=== PATIENT | male | born 1985 | race Caucasian/White ===

== ENCOUNTER → 2018-03-07 13:59 | Outpatient (CLI) | payer BC, SELFPAY ==
[2018-03-07 16:02] LABS: Absolute Lymphocyte Count 2.46 X10^3/ul (0.83-4.51); Absolute Neutrophil Count 7.9 X10^3/uL (2.0-7.7); Basophil# 0.06 X10^3/uL; Basophil% 0.5 % (0-1); Eosinophil# 0.38 X10^3/uL; Eosinophils% 3.3 % (0-5); Hematocrit 35.9 % (40-54); Hemoglobin 12.6 g/dl (13.0-16.5); Lymphocyte # 2.46 X10^3/ul (4.0); Lymphocyte % 21.3 % (19-41); Mean Corp Hgb Conc 35.1 g/gl (32-36); Mean Corpuscular Hgb 30.1 pg (27.0-32.0); Mean Corpuscular Volume 85.9 fL (80-94); Mean Platelet Vol. 12.7 fl (6.2-12.0); Monocyte# 0.74 X10^3/uL; Monocyte% 6.4 % (0-10); Neutrophil # 7.88 X10^3/uL (2.7-7.7); Neutrophil % 68.3 % (47-70); Platelet Count 161 K/mm3 (150-450); RBC Distribution Width CV 13.6 % (11.6-14.6); RBC Distribution Width SD 41.9 fl (35.1-43.9); Red Blood Count 4.18 M/mm3 (4.6-6.2); White Blood Count 11.5 K/mm3 (4.4-11.0)
[2018-03-07 16:03] LABS: POSITIVE COUNT NO; POSITIVE DIFFERENTIAL NO; POSITIVE MORPHOLOGY NO
[2018-03-07 16:12] LABS: Erythrocyte Sedimentation Rate 2 mm/hr (0-15)
[2018-03-07 16:39] LABS: ALB/GLOB Ratio 1.4 RATIO (0.9-2.4); AST(SGOT) 16 U/L (15-37); Alanine Aminotransfer ALT/SGPT 27 U/L (16-61); Albumin, Serum 3.9 g/dL (3.2-5.0); Alkaline Phosphatase 82 U/L (45-117); Anion Gap 11 (5-15); BUN 6 mg/dL (7-18); BUN/Creat Ratio 6.7 RATIO (10-20); CRP < 2.90 mg/L (0.0-3.0); Calcium,Total 8.6 mg/dL (8.5-10.1); Chloride 105 mmol/L (98-107); EST Glomerular Filtration Rate 105 mL/min (>60); Est Glom Filt Rate - Afr Amer 127 mL/min (>60); Globulin 2.7 g/dL (2.2-4.2); Glucose 85 mg/dL (74-106); Potassium 3.9 mmol/L (3.5-5.1); Protein, Total 6.6 g/dL (6.4-8.2); Rheumatoid Factor < 10.0 IU/mL (<15); Sodium Level 143 mmol/L (136-145)
[2018-03-10 09:44] LABS: ANTINUCLEAR ANTIBODIES DIRECT Negative (Negative)
[2018-03-11 12:07] LABS: Immunoglobulin A 71 mg/dL (90-386); Immunoglobulin E 8 IU/mL (0-100); Immunoglobulin G 555 mg/dL (700-1600); Immunoglobulin M 34 mg/dL (20-172); Testosterone, % Free 2.11 % (1.50-4.20)
[2018-03-11 14:09] LABS: CCP IgG Antibodies 6 units (0-19); Testosterone, Total 237 ng/dL (264-916)
--- OUTSIDE RECORDS SUMMARY | 2018-04-19 11:16 | XMS RPT_ITS ---
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 / Community E29.1(ICD-10) Hospital Repository PROCEDURES PROCEDURES No Procedure Records FoundRESULTS RESULTS CBC W/DIFF, AUTOMATED Collected: 03/07/2018 Status: F Source: [place] 2:01 PM [facility] REPOSITORY TYPE CODE TESTS RESULT OUT OF RANGE REFERENCE UNITS LAB L100.1000 4.4-11.0 K/mm3 High WBC 11.5 LAB L100.1200 4.6-6.2 M/mm3 Low RBC 4.18 LAB L100.1300 13.0-16.5 g/dl Low HGB 12.6 LAB L100.1400 40-54 % Low HCT 35.9 LAB L100.1500 80-94 fL Normal MCV 85.9 LAB L100.1600 27.0-32.0 pg Normal MCH 30.1 LAB L100.1700 32-36 g/gl Normal MCHC 35.1 LAB L100.1810 11.6-14.6 % Normal RDW CV 13.6 LAB L100.1820 35.1-43.9 fl Normal RDW SD 41.9 LAB L100.1900 150-450 K/mm3 Normal PLT 161 LAB L100.2000 6.2-12.0 fl High MPV 12.7 LAB L100.2100 47-70 % Normal NEUT% 68.3 LAB L100.2200 19-41 % Normal LY% 21.3 LAB L100.2300 0-10 % Normal MONO% 6.4 LAB L100.2400 0-5 % Normal EO% 3.3 LAB L100.2500 0-1 % Normal BASO% 0.5 LAB L100.2550 0.0-0.9 % Normal IM GRAN % 0.200 Result Comment: IG% - Immature Granulocytes (promyelocytes, myelocytes and metamyelocytes) > 1% indicates that a LEFT SHIFT is Present. LAB L100.2620 2.0-7.7 X10 3/uL High Absolute Neut 7.9 LAB L100.2720 0.83-4.51 X10 3/ul Normal Absolute Lymph 2.46 Performed By: #### L100.0100, L101.9900 #### [facility] [address] [place], [place], [id number] ERYTHROCYTE SED RATE Collected: 03/07/2018 Status: F Source: [place] 2:01 PM [facility] REPOSITORY TYPE CODE TESTS RESULT OUT OF RANGE REFERENCE UNITS LAB L102.0000 0-15 mm/hr Normal SED RATE 2 Performed By: #### L100.0100, L101.9900 #### [facility] [address] [place], [place], [address] COMPREHENSIVE METABOLIC Collected: 03/07/2018 Status: F Source: [facility] 2:01 PM [facility] REPOSITORY TYPE CODE TESTS RESULT OUT OF RANGE REFERENCE UNITS LAB L501.0100 74-106 mg/dL Normal GLU 85 Result Comment: Please note revised GLUCOSE reference range effective 2017. LAB L501.1000 7-18 mg/dL Low BUN 6 LAB L501.1100 0.70-1.30 mg/dL Normal CREAT,SERUM 0.90 Result Comment: The validity of the calculated GFR AND GFRAA in patients over 70 years has not been determined. Clinical correlation is essential. LAB L501.1110 >60 mL/min Normal EST GFR 105 Result Comment: Non- GFR Calc LAB L501.1115 >60 mL/min Normal EST GFR - AA 127 Result Comment: GFR Calc LAB L501.1300 10-20 RATIO Low BUN/CRE 6.7 LAB L501.1500 6.4-8.2 g/dL Normal T PROT 6.6 LAB L501.1800 3.2-5.0 g/dL Normal ALB 3.9 LAB L501.1950 2.2-4.2 g/dL Normal GLOB 2.7 LAB L501.2000 0.9-2.4 RATIO Normal A/G 1.4 LAB L501.2200 8.5-10.1 mg/dL Normal CA 8.6 LAB L501.4100 15-37 U/L Normal AST 16 LAB L501.4305 45-117 U/L Normal ALK P 82 LAB L501.4405 16-61 U/L Normal ALT 27 LAB L501.4600 0.20-1.00 mg/dL Normal T BILI 0.20 LAB L501.5300 136-145 mmol/L Normal NA 143 LAB L501.5600 3.5-5.1 mmol/L Normal K 3.9 LAB L501.5900 98-107 mmol/L Normal CL 105 LAB L501.6100 21.0-32.0 mmol/L Normal CO2 27.0 LAB L501.6200 5-15 Normal GAP 11 Performed By: #### L500.4050, L501.6710, L501.9520, L505.7010 #### [facility] [address] [place], [address] CRP Collected: 03/07/2018 Status: F Source: [place] 2:01 PM [facility] REPOSITORY TYPE CODE TESTS RESULT OUT OF RANGE REFERENCE UNITS LAB L501.6710 0.0-3.0 mg/L Normal < 2.90 C-REACTIVE PROT Result Comment: C-Reactive Protein (CRP) provides useful information for the diagnosis, therapy and monitoring of inflammatory processes and associated diseases. For the evaluation of Relative Risk for Cardiovascular Disease, a High Sensitivity CRP (HSCRP) should be ordered. Performed By: #### L500.4050, L501.6710, L501.9520, L505.7010 #### [facility] [address] [place], [place], [address] THYROID STIM HORMONE Collected: 03/07/2018 Status: F Source: [place] (TSH) 2:01 PM [facility] REPOSITORY TYPE CODE TESTS RESULT OUT OF RANGE REFERENCE UNITS LAB L501.9520 0.358-3.74 uIU/mL Normal TSH 2.90 Performed By: #### L500.4050, L501.6710, L501.9520, L505.7010 #### [facility] [address] [place], [place], [address] RHEUMATOID FACTOR Collected: 03/07/2018 Status: F Source: [place] 2:01 PM [facility] REPOSITORY TYPE CODE TESTS RESULT OUT OF RANGE REFERENCE UNITS LAB L505.7010 <15 IU/mL Normal RHEUMATOID FAC < 10.0 Performed By: #### L500.4050, L501.6710, L501.9520, L505.7010 #### [facility] [address] [place], [place], [address] LYDIA W/ REFLEX MULT Collected: 03/07/2018 Status: F Source: [place] 2:01 PM [facility] REPOSITORY TYPE CODE TESTS RESULT OUT OF RANGE REFERENCE UNITS LAB L3100.5475 Negative Normal Negative LYDIA-DIRECT Result Comment: Performed at: - [facility] [id number] Tower Hoist Operator: Enoc Castrejon PhD, Phone: [phone] Performed By: #### L3100.5450 #### [facility] (refer to report for specific site) refer to report for address and phone number TESTOSTERONE, TOTAL / Collected: 03/07/2018 Status: F Source: [place] FREE 2:01 PM [facility] REPOSITORY Order Comment: Is Patient Fasting? Y Has Patient had X-rays with Contrast this admission? N TYPE CODE TESTS RESULT OUT OF RANGE REFERENCE UNITS LAB L3100.5320 264-916 ng/dL Low 237 TESTOSTER,TO GUILLERMINA Result Comment: Adult male reference interval is based on a population of healthy nonobese males (BMI <30) between 19 and 39 years old. kenneth Victor.al. JCEM 2017,102;0084-9284. PMID: [id number]. LAB L3100.5340 5.00-21.00 ng/dL TESTOSTER,FREE Normal 5.00 LAB L3100.5360 1.50-4.20 % TESTOSTER %FREE Normal 2.11 Performed By: #### L3100.5310, L3200.1100, L4600.0100 #### [facility] (refer to report for specific site) refer to report for address and phone number IMMUNOGLOBULINS G/A/M/E Collected: 03/07/2018 Status: F Source: [place] 2:01 PM [facility] REPOSITORY Order Comment: Is Patient Fasting? Y Has Patient had X-rays with Contrast this admission? N TYPE CODE TESTS RESULT OUT OF RANGE REFERENCE UNITS LAB L3200.3184 626-6734 mg/dL Low IMMUNO G 555 LAB L3200.1400 90-386 mg/dL Low IMMUNO A 71 LAB L3200.1500 20-172 mg/dL Normal IMMUNOGL M 34 LAB L3200.1600 0-100 IU/mL Normal IMMUNO E 8 Performed By: #### L3100.5310, L3200.1100, L4600.0100 #### [facility] (refer to report for specific site) refer to report for address and phone number CCP IGG ANTIBODIES Collected: 03/07/2018 Status: F Source: [place] 2:01 PM [facility] REPOSITORY Order Comment: Is Patient Fasting? Y Has Patient had X-rays with Contrast this admission? N TYPE CODE TESTS RESULT OUT OF RANGE REFERENCE UNITS LAB L4600.0100 0-19 units Normal ANTI-CCP 6 [id number] Result Comment: Negative <20 Weak positive 20 - 39 Moderate positive 40 - 59 Strong positive >59 Performed at: - [facility] [address] [place], [place] [id number] Tower Hoist Operator: Enoc Castrejon PhD, Phone: [phone] Performed at: [facility] [id number] Tower Hoist Operator: Grayson Biswas MD, Phone: [phone] Performed By: #### L3100.5310, L3200.1100, L4600.0100 #### [facility] (refer to report for specific site) refer to report for address and phone number ALLERGIES ALLERGIES DATE TYPE / CODE NAME / CODE REACTION SEVERITY SOURCE 11/21/2016 Drug Penicillins/ Rash Unknown [facility] Allergy/4160 [id number]( Hospital 65516(SNOMED XNORM) Repository CT) ENCOUNTERS ENCOUNTERS ADMIT/DISCHARGE ACCOUNT ADMITTING ENCOUNTER LOCATION SOURCE NUMBER CLASS 03/22/2018 [id number] [place] [facility] ing:LAB.FUTUR Repository E 03/07/2018 [id number] Ambulatory [place] [facility] ing:BFHLAB Repository PAYERS PAYERS ENCOUNTER GUARANTOR PAYER SUBSCRIBER SOURCE 03/22/2018 Natasha [id number] Primary Natasha KoOB: [place] Melody Insurance:[facility] [id number] Number: [facility] [id number]: [id number] Repository [phone] () dorene Date:0046-34-33ZO [address] [place] [id number]: 03/22/2018 Secondary NOT GIVENUNK [place] Insurance:SELF PAY [facility] Number: Effective Repository Date:2018-03-22 03/07/2018 Natasha [id number] Primary Natasha KoOB: [place] Melody Insurance:[facility] [id number] Number: [facility] [id number]: [id number] Repository [phone] () dorene Date:[id number] [address] [place] [address] [id number]: 03/07/2018 Secondary NOT GIVENUNK [place] Insurance:SELF PAY [facility] Number: Effective Repository Date:2018-03-07
== END ==
LOC: BFHLAB 13:59
PROVIDERS: Family Provider Family Medicine; PCP Family Medicine; Visit Provider Family Medicine
DX: M06.9 Rheumatoid arthritis, unspecified (principal); N52.9 Male erectile dysfunction, unspecified; H04.129 Dry eye syndrome of unspecified lacrimal gland; I10 Essential (primary) hypertension; R53.83 Other fatigue; R68.89 Other general symptoms and signs
CPT/HCPCS: 36415; 80053; 82784; 82785; 84402; 84403; 84443; 85025; 85652; 86038; 86140; 86200; 86225; 86235; 86431

== ENCOUNTER → 2018-05-05 12:52 | Outpatient (CLI) | payer BC, SELFPAY ==
[2016-11-22 02:46] VITALS: BMI 23.0
[2018-05-05 14:02] LABS: Prolactin 10.2 ng/mL; Thyroid Stim Hormone (TSH) 3.01 uIU/mL (0.358-3.74)
== END ==
LOC: LAB 12:55
PROVIDERS: Family Provider Family Medicine; PCP Family Medicine; Referring Provider Family Medicine; Visit Provider Family Medicine
DX: E29.1 Testicular hypofunction (principal)
CPT/HCPCS: 36415; 84146; 84402; 84403; 84443; 84466

== ENCOUNTER → 2018-08-26 09:47 | Outpatient (CLI) | payer BC, SELFPAY ==
[2018-08-26 12:34] LABS: Erythrocyte Sedimentation Rate 4 mm/hr (0-15)
[2018-08-26 12:38] LABS: Absolute Lymphocyte Count 1.17 X10^3/ul (0.83-4.51); Absolute Neutrophil Count 7.1 X10^3/uL (2.0-7.7); Basophil# 0.02 X10^3/uL; Basophil% 0.2 % (0-1); Eosinophil# 0.03 X10^3/uL; Eosinophils% 0.3 % (0-5); Hematocrit 40.9 % (40-54); Hemoglobin 14.2 g/dl (13.0-16.5); Lymphocyte # 1.17 X10^3/ul (4.0); Lymphocyte % 13.5 % (19-41); Mean Corp Hgb Conc 34.7 g/gl (32-36); Mean Corpuscular Hgb 29.4 pg (27.0-32.0); Mean Corpuscular Volume 84.7 fL (80-94); Mean Platelet Vol. 12.5 fl (6.2-12.0); Monocyte# 0.35 X10^3/uL; Neutrophil # 7.08 X10^3/uL (2.7-7.7); Neutrophil % 81.5 % (47-70); Platelet Count 171 K/mm3 (150-450); RBC Distribution Width CV 14.1 % (11.6-14.6); RBC Distribution Width SD 43.4 fl (35.1-43.9); Red Blood Count 4.83 M/mm3 (4.6-6.2); White Blood Count 8.7 K/mm3 (4.4-11.0)
[2018-08-26 12:40] LABS: POSITIVE COUNT NO; POSITIVE DIFFERENTIAL NO; POSITIVE MORPHOLOGY NO
[2018-08-26 12:57] LABS: CRP < 2.90 mg/L (0.0-3.0); Ferritin 70 ng/mL (26-388); T4 Free Direct 0.66 ng/dL (0.76-1.46); Thyroid Stim Hormone (TSH) 1.23 uIU/mL (0.358-3.74)
[2018-08-31 12:07] LABS: Testosterone, % Free 2.01 % (1.50-4.20); Testosterone, Free 11.58 ng/dL (5.00-21.00); Transferrin 310 mg/dL (200-370)
[2018-09-01 16:14] LABS: HEPATITIS B SURFACE AG Negative (Negative); HLA B27 Negative (.); Testosterone, Total 576 ng/dL (264-916)
== END ==
PROVIDERS: Family Provider Family Medicine; PCP Family Medicine; Visit Provider Family Medicine
DX: M06.9 Rheumatoid arthritis, unspecified (principal); M25.50 Pain in unspecified joint; E29.1 Testicular hypofunction; D84.9 Immunodeficiency, unspecified; R53.83 Other fatigue
CPT/HCPCS: 36415; 81374; 82533; 82728; 84402; 84403; 84439; 84443; 84466; 85025; 85652; 86140; 87340

== ENCOUNTER → 2018-10-10 15:10 | Outpatient (CLI) | payer BC, SELFPAY ==
[2016-11-22 02:46] VITALS: BMI 23.0
[2018-10-13 03:06] LABS: QNTFERON TB Mitogen Value > 10.00 IU/mL (.); QNTFERON TB Nil Value 0.02 IU/mL (.); QNTFERON TB1+ Ag Value 0.04 IU/mL (.); QNTFERON TB2+ Ag Value 0.05 IU/mL (.)
[2018-10-14 16:53] LABS: QNTIFERON TB Positive Criteria Negative (Negative)
== END ==
PROVIDERS: Family Provider Family Medicine; PCP Family Medicine; Referring Provider Family Medicine; Visit Provider Family Medicine
DX: Z51.81 Encounter for therapeutic drug level monitoring (principal)
CPT/HCPCS: 36415; 86480

== ENCOUNTER 2018-10-24 01:52 | Emergency (ER) | payer BC, SELFPAY ==
[2018-10-24 01:53] VITALS: BP 142/81; PULSE 109; RESP 16; TEMP 36.6; O2SAT 99; BMI 24.4
--- NOTE | 2018-10-24 02:10 | ED.VISSUMM ---
- ER Visit Summary Date of Service: 10/24/18 Chief Complaint: Back pain History of Present Illness: The patient is a 33 M who presents with back pain is been constant for the past 3 weeks. Patient states he has a history of prior back fracture and is concerned over possible new fracture. Patient states he had a seizure approximately 3 weeks ago and fell during the seizure. Patient states his pain is been constant since that time. Patient describes the pain as sharp and dull. Patient states pain is worse with movement. Patient denies any radiation of the pain. Patient denies any bowel or bladder changes. Patient denies any saddle anesthesia. Physical Examination: Vital signs are stable. Patient is afebrile. Patient is in no acute distress. Musculoskeletal exam reveals tenderness of the left upper lumbar paraspinal muscles. There is no bony crepitance or step-off. Range of motion was limited in all motions of the lumbar spine secondary to pain. Strength is 5/5 bilaterally in the lower extremities. There are no sensory deficits noted. Test Results: X-rays of the lumbar spine were obtained. There are mild compression fractures of T12, L1, and L2. Patient states he has had fractures in his spine in the past. There are no prior x-rays for comparison. These were interpreted by the radiologist and reviewed by myself. Emergency Department Course and Treatment: Patient was resting comfortably on reevaluation. Patient was advised of his x-ray results. Patient states that with his prior back fracture it was diagnosed on MRI. Patient was advised that an MRI is not available at this time. Patient was instructed to follow-up with his primary care physician in 5 to 7 days for reevaluation. Patient understood and was agreeable with the plan. All questions were answered. Disposition: Discharge home Impression: Acute low back pain This note was generated with [employer] dictation software. It may contain incorrect words, spelling, and punctuation that were not noted in review of the chart prior to signing ED Disposition - Plan for ED Patient: Disposition: Home or Assisted Living Diagnosis: Acute low back pain Instructions: BACK PAIN (Acute or Chronic) Referrals: Gil Hu [Primary Care Provider] - 5-7 Days
--- NOTE | 2018-10-24 02:16 | RAD_ITS ---
STUDY: X-RAY - LUMBAR SPINE REASON FOR EXAM: Male, 33 years old. Lower back pain TECHNIQUE: 3 view(s) of the lumbar spine were obtained. COMPARISON: None FINDINGS: Normal lumbar lordosis. There is no substantial scoliosis. There is a normal alignment of the vertebrae. Mild compression fractures are noted in the upper endplate of T10, L1, L2. Normal disc space heights. The soft tissue structures are unremarkable. RAD/Lumbar Spine 2 or 3 Views IMPRESSION: Mild compression fractures of T10, L1, L2 Electronically Signed: Artur Childress, at 3:42 EDT Tel , Service support ,
[2018-10-24 03:52] VITALS: RESP 18
== END 2018-10-24 03:53 | disposition home or self-care (01) ==
PROVIDERS: Emergency Provider Emergency Medicine; Family Provider Family Medicine; PCP Family Medicine
DX: M54.5 Low back pain (principal); Z87.898 Personal history of other specified conditions; J34.89 Other specified disorders of nose and nasal sinuses; R06.00 Dyspnea, unspecified; R51 Headache; I10 Essential (primary) hypertension; M06.9 Rheumatoid arthritis, unspecified; G40.909 Epilepsy, unspecified, not intractable, without status epilepticus; Z79.899 Other long term (current) drug therapy
CPT/HCPCS: 72100; 99282

== ENCOUNTER 2018-12-29 09:30 | Outpatient (RCR) | payer BC, SELFPAY ==
--- NOTE | 2018-11-17 17:49 | HP.PTEVAL ---
Patient's Visit Information RAH BROWNING is a 33 year old M referred to Physical Therapy by Gil Hu DO with a diagnosis of LBP. Date of Evaluation: 11/17/18 Physical Therapist: Frankie Albarran, DPT, OCS, CSCS - Visit Plan Frequency: 2x /Week Duration: 4-6 Weeks Plan: Pt to do prone lie 5 minutes every hour at home and focus on posture. He has obvious clonus combined with night pain whcih are yellow flags whcih should be checked out if quick improvements not shown. see in water therapy 2x/week for 2-4 weeks as able to work on ext ROM L/S, posture, core strength and LE/postural strength. Gradual progression of ext exercises via HEP to tolerance. - Subjective Findings: Has RA. Problems with adrenal glands and seizures. October 05 seizure and fell through closet door bent BW and seized long time. Seizures are from stress adn lack of sleep. Sleeps less than 2 hours at a time before joint pain wakes him up. Had a seizure as a kid. On [employer] meds . Had LBP before this latest incident but unbearable since. 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 Pain is in LB deep and no leg symptoms. No numbness or tingling. Needs MRI and needs to do this to get it. Can't ride bike due to back pain and joint pain. Diagnosed with RA 5 yrs ago. Fritz takes care of it. Basic ADLs are done lightly. bathes and showers on own. Laundry hard to loft. Sleep is poor. No incontinence or difficulty with bowel or bladder. - Pain LBP Pain Intensity (Out of 10): 7 Pain Intensity Range: 10 - Objective Walks flexed in LB and hunched over significantly , hurt to extend to neutral in R LB. L/S AROM Barely neutral extension and pain, flexion is painful but full, SB B painful and mod limited. Trasnfers painfully but I to and fro sit and supine. reflexes are 3/3 B achilles and patella with obvious B CLONUS. Sensation WNL to gross light touch in LE. AROM LE WNL without pain, flex HS and quad mod tight. strength LE 4/5 without pain except R hip flexion gives some minor LBP. + L/S compression test. Too painful to do repeated motion today. - Goals Goal 1:: Sleep withotu waking at night due to pain 6 hours. Goal Time Frame: 2-4 Weeks Goal 2:: Stand up tall without hesitation or pain in LB Goal Time Frame: 2-4 Weeks Goal 3:: Transfer without pain or hesitancy Goal Time Frame: 2-4 Weeks Goal 4:: Pain 3/10 at worst adn 755 better. Goal Time Frame: 4-6 Weeks - Rehabilitation Potential Physical Therapy Diagnosis: LBP discal vs unknown etiology. Rehabilitation Potential: Questionable - Anticipated Interventions Patient/Client Instruction: Educate patient on: Condition, Plan of Care For the Purpose of:: To decrease pain, To improve muscle performance and motor function, To improve ability of physical actions for home/community/work/leisure, To improve gait and locomotor functions Therapeutic Exercise to Include: Strength training, Flexibilty training, Gait and locomotor training, In an aquatic setting, Passive ROM, Active ROM For the Purpose of:: To decrease pain, To increase ROM, To improve muscle performance and motor function, To improve ability of physical actions for home/community/work/leisure Thank you for the opportunity to evaluate your patient. For Medicare and Medicare HMO plans, please review the plan of care and approve it. It will need to be FAXED BACK to us at [phone] for Medicare purposes. For Medicare only, by signing this I certify the plan of care. Please let me know if there are questions or concerns regarding this plan of care. Physician Signature: Date:
--- NOTE | 2018-12-29 10:22 | HP.PTDCSUM ---
HP - PT D/C Summary It has been my pleasure to treat RAH BROWNING under orders from Gil Hu DO, for the diagnosis of LBP for a total of 4 visit(s). Discharge Date: 12/29/18 Please see the following information for a summary of their discharge status. - Subjective Subjective: Better. Time has allowed him to heal. 3/10 pain with bending or sideways moving. Sleeping is still tough as he cannot stay asleep. Not back to work yet. Activities at home are OK inside but mowing lawn is tough. Needs f/u with Dr. Hu. HEP crunches. - Pain LBP Pain Intensity (Out of 10): 0 - Overall Improvement % Improvement: 75 - Objective Objective/Function: Pt shows hunched posture but no blockages or deviations otherwise. He is able to stand up tall when asked adn has only min limitations in ext without pain, full flexion and mod SB limitations with B pAin. Trasnfer pain with supine to sit but better if cued to go through sidelying. [id number] BETTER AND WANTS TO BE DONE WITH PT, WILL SCHEULE WITH DOCTOR ADN WANTS TO RETURN TO WORK. - Goals Goal 1:: Sleep withotu waking at night due to pain 6 hours. Goal Progress: Not Progressing Goal 2:: Stand up tall without hesitation or pain in LB Goal Progress: Goal Met Goal 3:: Transfer without pain or hesitancy Goal Progress: Goal Met Goal 4:: Pain 3/10 at worst adn 755 better. Goal Progress: Goal Met - Plan Plan: D/C , PT REQUEST. - D/C Information Discharge Comments: pT TO SCHEDULE WITH DOCTOR INSTRUCTED. DOING WELL AND SIGNIFICANTLY BETTER. If there are questions or concerns regarding this patient's physical therapy, please feel free to call me at [phone]. Thank you for the referral of this patient. Sincerely, Frankie Albarran, DPT, OCS, CSCS
== END 2018-12-29 19:00 | disposition home or self-care (01) ==
LOC: PT 09:30
PROVIDERS: Family Provider Family Medicine; PCP Family Medicine; Referring Provider Family Medicine; Visit Provider Family Medicine
DX: M54.6 Pain in thoracic spine (principal); M54.5 Low back pain
CPT/HCPCS: 97113; 97162; 97530

== ENCOUNTER → 2019-03-20 16:11 | Outpatient (CLI) | payer BC, SELFPAY ==
[2019-03-20 17:32] LABS: Absolute Lymphocyte Count 2.15 X10^3/uL (0.83-4.51); Absolute Neutrophil Count 4.4 X10^3/uL (2.0-7.7); Basophil# 0.12 X10^3/uL; Basophil% 1.5 % (0-1); Eosinophil# 0.41 X10^3/uL; Eosinophils% 5.3 % (0-5); Hematocrit 44.3 % (40-54); Hemoglobin 14.8 g/dL (13.0-16.5); Lymphocyte # 2.15 X10^3/ul (4.0); Lymphocyte % 27.6 % (19-41); Mean Corp Hgb Conc 33.4 g/dL (32-36); Mean Corpuscular Hgb 29.2 pg (27.0-32.0); Mean Corpuscular Volume 87.4 fL (80-94); Mean Platelet Vol. 11.7 fl (6.2-12.0); Monocyte# 0.64 X10^3/uL; Monocyte% 8.2 % (0-10); NRBC Flagged by Analyzer 0 % (0-5); Neutrophil # 4.41 X10^3/uL (2.7-7.7); Neutrophil % 56.5 % (47-70); Platelet Count 219 K/mm3 (150-450); RBC Distribution Width CV 14.6 % (11.6-14.6); RBC Distribution Width SD 46.6 fl (35.1-43.9); Red Blood Count 5.07 M/mm3 (4.6-6.2); White Blood Count 7.8 K/mm3 (4.4-11.0)
[2019-03-20 18:42] LABS: ALB/GLOB Ratio 1.5 RATIO (0.9-2.4); AST(SGOT) 11 U/L (15-37); Alanine Aminotransfer ALT/SGPT 13 U/L (16-61); Alkaline Phosphatase 73 U/L (45-117); Anion Gap 4 (5-15); BUN 9 mg/dL (7-18); BUN/Creat Ratio 8.9 RATIO (10-20); Calcium,Total 8.4 mg/dL (8.5-10.1); Chloride 107 mmol/L (98-107); Creatinine, Serum 1.01 mg/dL (0.70-1.30); EST Glomerular Filtration Rate 91 mL/min (>60); Est Glom Filt Rate - Afr Amer 110 mL/min (>60); Globulin 2.7 g/dL (2.2-4.2); Glucose 82 mg/dL (74-106); Potassium 3.4 mmol/L (3.5-5.1); Protein, Total 6.7 g/dL (6.4-8.2); Sodium Level 142 mmol/L (136-145)
== END ==
PROVIDERS: Family Provider Family Medicine; PCP Family Medicine; Referring Provider Family Medicine; Visit Provider Family Medicine
DX: I10 Essential (primary) hypertension (principal); Z51.81 Encounter for therapeutic drug level monitoring
CPT/HCPCS: 36415; 80053; 85025

== ENCOUNTER → 2019-04-11 17:39 | Outpatient (CLI) | payer BC, SELFPAY ==
--- NOTE | 2019-04-11 18:15 | MRI_ITS ---
HISTORY: lower back pain, muscle cramps, burning in right leg, numbness left leg, s/p fall ADDITIONAL HISTORY: 33-year-old male with 6 month history of severe back pain, muscle spasm in his back, status post completion of consistent medication therapy, course of physical therapy with a complete resolution. Intermittent symptoms in lower extremities. COMPARISON: Lumbar radiographs 10/11/20142018 TECHNIQUE: Multiplanar, multisequence MRI of the lumbar spine without IV contrast. FINDINGS: Bone marrow signal intensity appears unremarkable. Mild superior end plate loss of height of T12 and L1 with Schmorl's nodes, similar to previous radiographs. No significant canal or foraminal narrowing. Conus ends at L1-2. L1-L2: Unremarkable. L2-L3: Unremarkable. L3-L4: No significant disc bulging. Facet arthropathy. L4-L5: No significant disc bulging. Facet arthropathy. L5-S1: Disc desiccation with mild to moderate disc bulging. Facet arthropathy. MRI/Spine Lumbar (Routine) IMPRESSION: Degenerative changes with mild to moderate disc bulging at L5-S1. at 2307 Reported and signed by: Lorraine Antonio MD Electronically Signed: Lorraine Antonio MD at 23:07 EST Tel , Service support ,
== END ==
LOC: MRI 17:39
PROVIDERS: Family Provider Family Medicine; PCP Family Medicine; Referring Provider Family Medicine; Visit Provider Family Medicine
DX: M54.16 Radiculopathy, lumbar region (principal); M54.5 Low back pain
CPT/HCPCS: 72148

== ENCOUNTER → 2019-05-19 09:39 | Outpatient (CLI) | payer BC, SELFPAY ==
--- NOTE | 2019-05-19 09:43 | NM_ITS ---
CLINICAL: 33-year-old male with reported history of low back discomfort. WHOLE BODY and SPECT-CT LOWER THORACIC-LUMBAR SPINE RADIONUCLIDE 99m Tc MDP BONE SCINTIGRAPHY COMPARISON: MRI of the lumbar spine report 04/11/2019 FINDINGS: Following the intravenous administration of approximately 25.0 mCi of 99m Tc MDP, whole body bone images and SPECT reconstructions of the mid-lower thoracic, lumbar reveal: 1. SPECT reconstructions demonstrate focal increased radiopharmaceutical concentration noted in the ninth thoracic and first lumbar vertebra contiguous to the vertebral body-anterior element. 2. Facilitated tracer uptake is noted in the bilateral elbows, the acromioclavicular and sternoclavicular compartments of both shoulders, both knee articulations. 3. The remaining skeletal structures are scintigraphically unremarkable with normal-appearing renal images and urinary bladder activity identified. NM/Bone Scan Whole Body IMPRESSION: 1. The increase in radiopharmaceutical concentration identified in the ninth thoracic and first lumbar vertebra is most consistent with trauma-fracture. Repeat MRI of the lumbar spine and additionally obtained MRI of the lower thoracic spine may be of benefit for further evaluation. 2. Degenerative arthritis appears expressed in the bilateral shoulder and elbow articulations, right-left knees. Electronically Signed: Latrell Gallardo DO at 14:02 EST Tel , Service support ,
== END ==
LOC: NM 09:40
PROVIDERS: PCP Family Medicine; Referring Provider Orthopaedic Surgery; Visit Provider Orthopaedic Surgery
DX: M43.10 Spondylolisthesis, site unspecified (principal)
CPT/HCPCS: 78306

== ENCOUNTER → 2019-06-13 09:20 | Outpatient (CLI) | payer BC, SELFPAY ==
--- NOTE | 2019-06-13 10:00 | MRI_ITS ---
STUDY: MRI THORACIC SPINE WITHOUT CONTRAST REASON FOR EXAM: Male, 33 years old. Abnormal bone scan, back pain TECHNIQUE: Standardized fat and water weighted pulse sequences were obtained in the sagittal and axial planes. COMPARISON: None. FINDINGS: Thoracic kyphosis preserved. No significant scoliosis. Multilevel endplate spondylosis with corresponding Schmorl''s nodes at the T9, T10, T11, T12 and L1 levels. Mild bone marrow edema within the L1 superior endplate adjacent to the Schmorl''s node (sagittal image 8 series 6). C6-7 disc bulge (sagittal image 8 series 4) with mild central canal narrowing. T5-6 tiny central disc protrusion. T6-7 shallow central disc protrusion with minimal central canal narrowing. T7-8 disc bulge with minimal central canal narrowing. Additional visualized thoracic levels: Minimal disc bulging. Mild disc desiccation. No central canal narrowing. No neural foramina narrowing. No acute fracture line. No acute dislocation. No acute bone destruction. No spondylolisthesis. No abnormal cord signal. Normal upper abdomen. Normal aorta. Normal mediastinum. Normal lungs. Normal paraspinal muscles. 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
--- NOTE | 2019-06-13 10:45 | MRI_ITS ---
STUDY: MRI LUMBAR SPINE WITHOUT CONTRAST REASON FOR EXAM: Male, 33 years old. back pain, f/u bone scan TECHNIQUE: Standardized fat and water weighted pulse sequences were obtained in the sagittal and axial planes. COMPARISON: April 11, 2019. FINDINGS: Lumbar straightening. No significant scoliosis. No acute fracture. No acute dislocation. No acute bone destruction. Active L1 superior endplate Schmorl''s node. T12 superior endplate Schmorl''s node. Normal paraspinal muscles. Normal aorta. Normal retroperitoneum. T12-L1: Endplate spondylosis with Schmorl''s node. Minimal disc desiccation. Normal bilateral facet joints. Normal central canal and bilateral lateral recesses. Normal bilateral intervertebral neural foramina. L1-2: Normal endplates. Normal disc height, hydration and morphology. Normal bilateral facet joints. Normal central canal and bilateral lateral recesses. Normal bilateral intervertebral neural foramina. L2-3: Normal endplates. Normal disc height, hydration and morphology. Normal bilateral facet joints. Normal central canal and bilateral lateral recesses. Normal bilateral intervertebral neural foramina. L3-4: Normal endplates. Normal disc height, hydration and morphology. Facet arthrosis. Normal central canal and bilateral lateral recesses. Normal bilateral intervertebral neural foramina. L4-5: Normal endplates. Normal disc height, hydration and morphology. Facet arthrosis. Normal central canal and bilateral lateral recesses. Normal bilateral intervertebral neural foramina. L5-S1: Minimal endplate spondylosis. Disc bulge without central canal narrowing. Facet arthrosis. Normal central canal and bilateral lateral recesses. Neural foramina narrowing without impingement. L5 bilateral pars defects without spondylolisthesis. MRI/Spine Lumbar (Routine) IMPRESSION: Scheuermann''s disease with acute/subacute L1 superior endplate edema/collapse Schmorl''s node L5-S1 disc bulge without central canal narrowing L5-S1 neural foraminal narrowing without impingement L5 bilateral pars defects without spondylolisthesis Lumbar straightening with facet joint arthrosis Electronically Signed: Frankie Pedraza DO at 11:45 EST Tel , Service support ,
== END ==
LOC: MRI 09:21
PROVIDERS: PCP Family Medicine; Referring Provider Nurse Practitioner Acute Care; Visit Provider Nurse Practitioner Acute Care
DX: R94.8 Abnormal results of function studies of other organs and systems (principal)
CPT/HCPCS: 72146; 72148

== ENCOUNTER 2020-01-11 13:12 | Inpatient (IN) | payer SELFPAY ==
[2020-01-11] VITALS (7 sets, daily range): BP systolic 144–164; BP diastolic 76–99; PULSE 90–113; RESP 17–18; TEMP 36.6–36.9; O2SAT 96–100; BMI 25.8; BMI 27.8
--- NOTE | 2020-01-11 14:53 | EKG12_ITS ---
Test Reason : STROKE Blood Pressure : / mmHG Vent. Rate : 104 BPM Atrial Rate : 104 BPM P-R Int : 206 ms QRS Dur : 114 ms QT Int : 348 ms P-R-T Axes : 033 080 013 degrees QTc Int : 457 ms Sinus tachycardia Nonspecific ST and T wave abnormality Abnormal ECG Confirmed by ELHAM JAIN, NIKIA ([id number]), proposal editor ERIK CROWDER ([id number]) on 01/15/2020 2:38:34 PM Referred By: JASON Confirmed By:COCO LIZARRAGA MD
--- NOTE | 2020-01-11 14:58 | TELEMED_ITS ---
[facility] Tele[facility] has confirmed receipt of a request for visit. This document confirms receipt of the order initiating the consult. To find the results of the consultation, please view the patient's reports for the scanned Telemed Consult.
--- NOTE | 2020-01-11 15:05 | ED.VIS.GEN ---
History of Present Illness Chief Complaint: Weakness Informant: Patient, Significant Other Onset: Today Narrative: Patient presents by EMS with significant other sudden onset bilateral arm and leg weakness after awakening at 11 AM today. States got up felt a cramp in his leg and went down. No head injuries. States had significant difficulty moving his arms bilaterally earlier and legs. States it takes a lot of effort to try to move his arms and legs. No previous similar events in the past. He does report a history of rheumatoid arthritis for the past 5 years due to losing his job and health insurance stopped Humira in June. He states history of stress-induced seizures with as needed Valium. He takes gabapentin for back pain. He states he is on oxycodone for pain by his PCP Dr. Hu. He denies any IV drug use. He states he takes occasional gummy THC. Last use was 5 days ago. He denies any paresthesias distally or anywhere in the body. No headache or neck pain. Denies trauma. He denies any loss of bowel or bladder control. No saddle anesthesia. Denies pain new pain down thoracic or lumbar region. He states he had an MRI of his lumbar spine little over a year ago as an outpatient. Patient denies any recent fevers, denies any recent illnesses. Prior similar symptoms: No Past Medical History - Allergies and Home Meds Allergies/Adverse Reactions: Allergies Penicillins Allergy (Verified 01/11/20 13:16) Rash Primary Care Physician: Gil Hu [Primary Care Provider] - Past Medical History: - - Chronic back pain, stress-induced seizures, rheumatoid arthritis Smoking Status: Current some day smoker - Family History Maternal Family History: Reports: Diabetes Paternal Family History: Reports: Cancer, Hypertension Review of Systems General: Denies: Chills, Fever, Sweats Eyes: Denies: Visual changes - bilaterally, Diplopia ENT: Denies: Rhinorrhea, Sore throat Cardiovascular: Denies: Chest pain, Palpitations Respiratory: Denies: Dyspnea, Cough, Dyspnea on exertion Gastrointestinal: Denies: Abdominal pain, Nausea, Vomiting, Diarrhea, Melena, Hematochezia Genitourinary: Denies: Dysuria, Hematuria, Frequency Musculoskeletal: Denies: Back pain, Extremity Pain Skin: Denies: Rash, Wounds Neurological: Reports: Weakness. Denies: Headache, Numbness Physical Exam Vital Signs/Narrative: Vital Signs Temp Pulse Resp BP Pulse Ox 01/11/20 13:13 97.8 F 107 H 18 154/99 H 99 Inital Vital Signs reviewed: Yes General: Well nourished, Well developed, No Acute Distress Head: Normocephalic, Atraumatic Eyes: Perrl, EOMI ENT: Moist mucous membranes, No rhinorrhea Neck: Supple, Nontender Cardiovascular: Regular rate, Regular rhythm, No murmurs Respiratory: No distress, CTA bilaterally, Chest nontender Abdomen: Soft, Nontender, Nondistended, Normal bowel sounds Back: Nontender, Normal Inspection, -. Negative for: Spinal tenderness - No erythema along the back. Extremities: Nontender, No edema Skin: Normal color, No rash Neurological: Alert, Oriented x3, Cranial nerves II-XII grossly intact, Normal Sensation, - - Patient with significant weakness proximal shoulders bilaterally hip flexors. He did have weakness of extremities elbows and distally however not as significant as the shoulders. He is unable to fully abduct his shoulders. Bilateral hip flexors also significantly weak, is able to plantar flex 4 out of 5, dorsiflexion bilaterally was 2 out of 5. Sensation however is intact throughout. Psychological: Normal affect, Normal Mood Diagnostic/Tx/Re-eval Abnormal Lab Results 01/11/20 01/11/20 01/11/20 15:18 15:18 15:18 WBC 13.4 H RBC 4.99 Hgb 15.1 Hct 44.6 MCV 89.4 MCH 30.3 MCHC 33.9 RDW Std Deviation 44.7 H RDW Coeff of Todd 13.6 Plt Count 185 MPV 11.7 Immature Gran % (Auto) 1.300 H Neut % (Auto) 71.5 H Lymph % (Auto) 12.0 L [place] % (Auto) 5.7 Eos % (Auto) 8.5 H Baso % (Auto) 1.0 Absolute Neuts (auto) 9.6 H Absolute Lymphs (auto) 1.61 Nucleated RBC % 0 ESR < 1 PT 11.2 L INR 0.9 APTT 25.6 Sodium 143 Potassium 1.9 L* Chloride 108 H Carbon Dioxide 28.0 Anion Gap 7 BUN 6 L Creatinine 0.91 Estim Creat Clear Calc 107.95 Est GFR (MDRD) Af Amer 123 Est GFR (MDRD) Non-Af 101 BUN/Creatinine Ratio 6.6 L Glucose 156 H Calcium 8.9 Magnesium 1.6 Total Bilirubin 0.20 AST 22 ALT 21 Alkaline Phosphatase 83 Total Creatine Kinase C-React Prot High Sens 1.24 Total Protein 6.5 Albumin 3.8 Globulin 2.7 Albumin/Globulin Ratio 1.4 Urine Color Urine Clarity Urine pH Ur Specific [place] Urine Protein Urine Glucose (UA) Urine Ketones Urine Occult Blood Urine Nitrite Urine Bilirubin Urine Urobilinogen Ur Leukocyte Esterase Urine RBC Urine WBC Ur Squamous Epith Cells Urine Bacteria Urine Mucus Urine Opiates Screen Urine Methadone Screen Ur Barbiturates Screen Ur Phencyclidine Scrn Ur Amphetamines Screen U Methamphetamin-MDMA U Benzodiazepines Scrn Urine Cocaine Screen U Cannabinoids Screen Ur Drug Screen Comment 01/11/20 01/11/20 01/11/20 15:18 15:27 15:27 WBC RBC Hgb Hct MCV MCH MCHC RDW Std Deviation RDW Coeff of Todd Plt Count MPV Immature Gran % (Auto) Neut % (Auto) Lymph % (Auto) [place] % (Auto) Eos % (Auto) Baso % (Auto) Absolute Neuts (auto) Absolute Lymphs (auto) Nucleated RBC % ESR PT INR APTT Sodium Potassium Chloride Carbon Dioxide Anion Gap BUN Creatinine Estim Creat Clear Calc Est GFR (MDRD) Af Amer Est GFR (MDRD) Non-Af BUN/Creatinine Ratio Glucose Calcium Magnesium Total Bilirubin AST ALT Alkaline Phosphatase Total Creatine Kinase 597 H C-React Prot High Sens Total Protein Albumin Globulin Albumin/Globulin Ratio Urine Color Yellow Urine Clarity Clear Urine pH 6.5 Ur Specific [place] 1.005 Urine Protein Negative Urine Glucose (UA) Normal Urine Ketones Negative Urine Occult Blood Negative Urine Nitrite Negative Urine Bilirubin Negative Urine Urobilinogen Normal Ur Leukocyte Esterase Negative Urine RBC 0 SEEN Urine WBC 0 SEEN Ur Squamous Epith Cells 0 SEEN Urine Bacteria 0 SEEN Urine Mucus 0 SEEN Urine Opiates Screen NEGATIVE Urine Methadone Screen NEGATIVE Ur Barbiturates Screen NEGATIVE Ur Phencyclidine Scrn NEGATIVE Ur Amphetamines Screen NEGATIVE U Methamphetamin-MDMA NEGATIVE U Benzodiazepines Scrn POSITIVE H Urine Cocaine Screen NEGATIVE U Cannabinoids Screen POSITIVE H Ur Drug Screen Comment - Medical Decision Making Patient with significant motor weakness of bilateral arms and legs prominently proximal aspects of the extremities. Sensation is intact, he has no paresthesias, no neck pain or headaches. Unclear in etiology, less likely Guillain Castellanos? concerns. He has no respiratory complaints. Due to sudden onset of motor weakness, MRI studies ordered of the brain neck thoracic and lumbar regions with contrast for further evaluation. We will have laboratory studies to evaluate for any metabolic disorders. We will request neurologically consult from the ED through [facility]. Neurology evaluated by Dr. Smith on the monitor. Did agree with the work-up and admission. They felt the lumbar was not necessary therefore was canceled. There is delay in imagings due to busy department. In the interim, labs did return with a potassium 1.9 which was in his differential. He is now on a diuretic. Magnesium was 1.6. EKG noted sinus with nonspecific T changes inferior lateral likely from his low potassium. He has no chest pains. Neurology did recommend a CPK which was added at 597 he has normal renal function he started on IV fluids. He was given 40 of p.o. potassium then ordered for 40 of IV potassium for replacement. With findings of hypokalemia significant likely causing his disorder he has no fever or new back pain for any concerns spinal abscess or any recent illnesses for concerns for transverse myelitis specially with no paresthesias. I did speak with hospitalist edgar Crump patient's findings and work-up. Discussed per patient after we discussion that he is on potassium replacement at night due to having intermittent hypokalemia from his seizure episodes that he has been told. He denies any missed doses however this is never happened to him before. They are okay holding off on the MRI. Hospitalist also okay holding off MRI tonight and monitoring with replacement and reevaluation tomorrow if image studies are necessary. Hospitalist requested additional magnesium with it being borderline low with his symptoms 2 g IV was ordered. He is admitted to PCU. Of note, Tox screen did return THC and benzodiazepine. He takes Valium for his seizures, he admitted to THC 5 days ago with gummy bears. He was given his home dose of oxycodone along with Valium which will help with his cramping. Gabapentin was also due. ED Disposition - Plan for ED Patient: Disposition: Acute Care Hospital [facility] Diagnosis: Hypokalemic paralysis disorder, Hypokalemia Referrals: Gil Hu [Primary Care Provider] -
[2020-01-11 15:38] LABS: Bacteria 0 SEEN /hpf (None Seen); Mucous, Urine 0 SEEN /hpf (<or=2+); Red Blood Cells-Urine 0 SEEN /hpf (0-5); Squamous Epithelial Cells - UA 0 SEEN /hpf (0-5); White Blood Cells 0 SEEN /hpf (0-5)
[2020-01-11 15:44] LABS: Absolute Lymphocyte Count 1.61 X10^3/uL (0.83-4.51); Absolute Neutrophil Count 9.6 X10^3/uL (2.0-7.7); Basophil# 0.13 X10^3/uL; Eosinophil# 1.14 X10^3/uL; Eosinophils% 8.5 % (0-5); Hematocrit 44.6 % (40-54); Hemoglobin 15.1 g/dL (13.0-16.5); Lymphocyte # 1.61 X10^3/ul (4.0); Mean Corp Hgb Conc 33.9 g/dL (32-36); Mean Corpuscular Hgb 30.3 pg (27.0-32.0); Mean Corpuscular Volume 89.4 fL (80-94); Mean Platelet Vol. 11.7 fl (6.2-12.0); Monocyte# 0.77 X10^3/uL; Monocyte% 5.7 % (0-10); NRBC Flagged by Analyzer 0 % (0-5); Neutrophil # 9.62 X10^3/uL (2.7-7.7); Neutrophil % 71.5 % (47-70); Platelet Count 185 K/mm3 (150-450); RBC Distribution Width CV 13.6 % (11.6-14.6); RBC Distribution Width SD 44.7 fl (35.1-43.9); Red Blood Count 4.99 M/mm3 (4.6-6.2); White Blood Count 13.4 K/mm3 (4.4-11.0)
[2020-01-11 15:50] LABS: International Normalized Ratio 0.9; Prothrombin Time (Protime)PT. 11.2 SECONDS (11.7-14.9)
[2020-01-11 15:51] LABS: Partial Thromboplast Time 25.6 Seconds (24.1-36.2)
[2020-01-11 15:52] LABS: Erythrocyte Sedimentation Rate < 1 mm/hr (0-15)
[2020-01-11 16:07] LABS: Color, Urine Yellow (Yellow); Glucose, Dipstick Normal (Normal); Ketone-Dipstick Negative (Negative); Leukocyte Esterase-Dipstick Negative /ul (Negative); Nitrite-Dipstick Negative (Negative); Occult Blood-Urine Negative /ul (Negative); Protein-Dipstick Negative (Negative); Specific Gravity, Urine 1.005 (1.002-1.030); Urine Bilirubin Dipstick Negative (Negative); Urine Clarity Clear (Clear); Urine Urobilinogen Normal (Normal); Urine pH 6.5 (5.0 - 8.0)
[2020-01-11 16:25] LABS: Amphetamine Urine VISTA NEGATIVE (<1000 ng/mL); Barbiturate Urine VISTA NEGATIVE (< 200 ng/mL); Benzodiazepine Urine VISTA POSITIVE (< 200 ng/mL); Cocaine Urine VISTA NEGATIVE (< 300 ng/mL); Ecstacy Urine VISTA NEGATIVE (< 500 ng/mL); Methadone Urine VISTA NEGATIVE (< 300 ng/mL); PCP Urine VISTA NEGATIVE (< 25 ng/mL); THC Urine VISTA POSITIVE (< 50 ng/mL); Vista UDS pH Range 6
[2020-01-11 16:29] LABS: ALB/GLOB Ratio 1.4 RATIO (0.9-2.4); AST(SGOT) 22 U/L (15-37); Alanine Aminotransfer ALT/SGPT 21 U/L (16-61); Albumin, Serum 3.8 g/dL (3.2-5.0); Alkaline Phosphatase 83 U/L (45-117); Anion Gap 7 (5-15); BUN 6 mg/dL (7-18); BUN/Creat Ratio 6.6 RATIO (10-20); CRP, High Sensitivity Cardiac 1.24 mg/L; Calcium,Total 8.9 mg/dL (8.5-10.1); Chloride 108 mmol/L (98-107); Creatinine, Serum 0.91 mg/dL (0.70-1.30); EST Glomerular Filtration Rate 101 mL/min (>60); Est Glom Filt Rate - Afr Amer 123 mL/min (>60); Estimated Creatinine Clearance 107.95 ml/min; Globulin 2.7 g/dL (2.2-4.2); Glucose 156 mg/dL (74-106); Magnesium 1.6 mg/dL (1.6-2.6); Potassium 1.9 mmol/L (3.5-5.1); Protein, Total 6.5 g/dL (6.4-8.2); Sodium Level 143 mmol/L (136-145)
[2020-01-11 16:37] LABS: CPK Total, Creatine Kinase 597 U/L (39-308)
[2020-01-11] MEDS: oxyCODONE 5 MG Tablet 10 MG PO ×2 (16:42→21:41)
[2020-01-11] MEDS: diazePAM 5 MG Tablet PO (16:43)
--- NOTE | 2020-01-11 16:56 | NURSING ---
PCU HYPOKALEMIA, PARALYSIS PAINTSIL
[2020-01-11] MEDS: Gabapentin 400 MG Capsule PO ×2 (16:59→21:39)
[2020-01-11] MEDS: 0.9% Normal Saline 1,000 ML 150 ML IV ×2 (17:06→21:34)
--- NOTE | 2020-01-11 17:25 | PCM.HP.STD ---
<Newton Bautista PA - Last Filed: 01/11/20 17:25> Problem List (1) Hypokalemia Status: Acute (2) Paralysis Status: Acute (3) Seronegative rheumatoid arthritis Status: Chronic (4) Hypertension Status: Chronic (5) Seizure Status: Acute History of Present Illness Date of Admission: 01/11/20 Chief Complaint: weakness The patient is a 34 year old M with a pmhx of stress induced seizures and rheumatoid arthritis, who presents to the ER with c/o weakness in the upper and lower extremities. He woke up this morning and felt his right thigh had muscle spasms and fell to the ground. He was able to get back into bed and slept until 11am. When he woke up his arms and legs were extremely weak. He can somewhat move his fingers and flex at the bicep, and can move his toes and at the ankle, otherwise is very weak. It takes a marked effort to move a small amount. He fell out of bed and crawled across the floor a short way. He does not have any change in sensation. No vision changes. No LYNN. His weakness has not improved, however has not gotten worse at this point. He was found to have marked hypokalemia and mild hypomagnesemia. He is on losartan at home. He drinks copious amounts of water for constant thirst approx 6x36 oz cups of water minimum daily, and has frequent clear urinations. He has not drank any water today and voided 1700 cc in the ER. Sodium was normal and chloride was mildly elevated. [] Past Medical History Past Medical History (Chronic Problems): Chronic Problems Seronegative rheumatoid arthritis (Chronic) Hypertension (Chronic) Allergies Penicillins Allergy (Verified 01/11/20 13:16) Rash Home Medications: Ambulatory Orders Medication Instructions Recorded Amlodipine [Norvasc] 5 mg PO DAILY 04/16/16 Losartan Potassium [Cozaar] 25 mg PO DAILY 04/16/16 Oxycodone [Oxyir] 10 mg PO Q4H PRN PRN 11/21/16 Diazepam 10 mg PO TID 10/24/18 Testosterone Cypionate 200 mg IM .COMPLEX 10/24/18 [Depo-Testosterone] Amitriptyline HCl 75 mg PO QHS 01/11/20 Gabapentin [Neurontin] 400 mg PO 4X/DAY 01/11/20 Pantoprazole Sodium [Protonix] 40 mg PO DAILY 01/11/20 Psychiatric History: No pertinent psych hx Lives: Spouse/ Significant Other Smoking Status: Current some day smoker Tobacco Use: Cigarettes, Vapor Alcohol: None Drugs: Marijuana - *Family History Maternal History Items: Diabetes Paternal History Items: Cancer, Hypertension Review of Systems Constitutional: Reports: Weakness, Fatigue. Denies: Chills, Fever, Weight Change HEENT: Denies: Head Aches, Sinus Congestion, Sinus Drainage Cardiovascular: Denies: Chest Pain, Palpitations Respiratory: Denies: Cough, Shortness of breath at rest, Sputum production Gastrointestinal: Denies: Abdominal Pain, Nausea, Vomiting Genitourinary: Denies: Dysuria Musculoskeletal: Reports: - - severe upper and lower extremity weakness.. Denies: Joint Pain, Joint Tenderness Skin: Denies: Rash, Wounds Neurological: Denies: Numbness, Tingling, Focal weakness Psychiatric: Denies: Anxiety, Depression, Homicidal Ideations, Suicidal Ideations Hematologic/ Lymphatic: Denies: Easy Bruising, Easy Bleeding VTE Information - Inpt Only VTE Present on Admission: No VTE Mechan Device Prophylaxis: None VTE Pharm Prophylaxis ordered?: Yes - Physical Exam Vitals/I&O's: Vital Signs Temp Pulse Resp BP Pulse Ox 98.4 F 102 H 17 144/93 H 96 01/11/20 17:18 01/11/20 17:18 01/11/20 17:18 01/11/20 17:18 01/11/20 17:18 Oxygen Delivery Method Room Air Weight: 165 lb Body Mass Index (BMI) 25.8 Intake and Output for Last 24 Hours 01/09/20 01/10/20 01/11/20 23:59 23:59 23:59 Intake Total 600 / 600 Output Total 1750 / 1750 Balance -1150 / -1150 General: Alert, Oriented x3, Cooperative HEENT: Atraumatic, PERRLA, EOMI, Normocephalic Neck: Supple, No JVD, Negative Carotid Bruits Lungs: Clear to auscultation, Normal air movement Cardiovascular: Regular rate, No murmurs Abdomen: Bowel Sounds Present, Soft, Non Tender Extremities: No edema, Capillary Refill Less than 3 Seconds Skin: No rashes, No breakdown Musculoskeletal: No Tenderness to Palpation of Joints or Extremities Neurological: Cranial nerves II-XII grossly intact, - - DTRs diminished throughout exam, equal bilaterally Psych/Mental Status: Normal Affect, Appropriate, Alert and oriented to time, place, person, mood and affect Laboratory Results 01/11/20 15:18: WBC 13.4 H, RBC 4.99, Hgb 15.1, Hct 44.6, MCV 89.4, MCH 30.3, MCHC 33.9, RDW Std Deviation 44.7 H, RDW Coeff of Todd 13.6, Plt Count 185, MPV 11.7, Immature Gran % (Auto) 1.300 H, Neut % (Auto) 71.5 H, Lymph % (Auto) 12.0 L, [place] % (Auto) 5.7, Eos % (Auto) 8.5 H, Baso % (Auto) 1.0, Absolute Neuts (auto) 9.6 H, Absolute Lymphs (auto) 1.61, Nucleated RBC % 0, ESR < 1 01/11/20 15:18: PT 11.2 L, INR 0.9, APTT 25.6 01/11/20 15:18: Sodium 143, Potassium 1.9 L*, Chloride 108 H, Carbon Dioxide 28.0, Anion Gap 7, BUN 6 L, Creatinine 0.91, Estim Creat Clear Calc 107.95, Est GFR (MDRD) Af Amer 123, Est GFR (MDRD) Non-Af 101, BUN/Creatinine Ratio 6.6 L, Glucose 156 H, Calcium 8.9, Magnesium 1.6, Total Bilirubin 0.20, AST 22, ALT 21, Alkaline Phosphatase 83, C-React Prot High Sens 1.24, Total Protein 6.5, Albumin 3.8, Globulin 2.7, Albumin/Globulin Ratio 1.4 01/11/20 15:18: Total Creatine Kinase 597 H 01/11/20 15:27: Urine Opiates Screen NEGATIVE, Urine Methadone Screen NEGATIVE, Ur Barbiturates Screen NEGATIVE, Ur Phencyclidine Scrn NEGATIVE, Ur Amphetamines Screen NEGATIVE, U Methamphetamin-MDMA NEGATIVE, U Benzodiazepines Scrn POSITIVE H, Urine Cocaine Screen NEGATIVE, U Cannabinoids Screen POSITIVE H, Ur Drug Screen Comment 01/11/20 15:27: Urine Color Yellow, Urine Clarity Clear, Urine pH 6.5, Ur Specific [place] 1.005, Urine Protein Negative, Urine Glucose (UA) Normal, Urine Ketones Negative, Urine Occult Blood Negative, Urine Nitrite Negative, Urine Bilirubin Negative, Urine Urobilinogen Normal, Ur Leukocyte Esterase Negative, Urine RBC 0 SEEN, Urine WBC 0 SEEN, Ur Squamous Epith Cells 0 SEEN, Urine Bacteria 0 SEEN, Urine Mucus 0 SEEN Current Medications Potassium Acetate 40 meq/ (Sodium Chloride) 270 mls @ 67.5 mls/hr IV X1 ONE Stop: 01/11/20 20:39 Last Admin: 01/11/20 17:05 Dose: 67.5 mls/hr Documented by: Sodium Chloride () 1,000 mls @ 150 mls/hr IV .Q6H40M KRISTIN Last Admin: 01/11/20 17:06 Dose: 150 mls/hr Documented by: Sodium Chloride () 10 - 40 ml IV UD PRN PRN Reason: SALINE FLUSH Assessment/Plan All Active Problems Hypokalemia (Acute) Paralysis (Acute) Seizure (Acute) 1. BL upper and lower extremity partial paralysis - severe proximal muscle weakness, somewhat less dramatic distally. No change in sensation. Possibly due to marked hypokalemia. K is low despite ARB use at home. CK is 597. Mag is mildly low. Sodium is however normal. He does not have recent illness/infection/severe headache or neck pain. He has mild leukocytosis. Neuro recommends MRI brain, C and T spine with contrast, ESR, CRP, UA, UDS, possible LP if MRI neg. Will replace electrolytes and reassess patient in AM. If no improvement will pursue aggressive workup as above. UA is negative. Tox screen shows benzos (Rx'd) and marijuana (admits to occasional use). EKG with nonspecific changes, some T wave flattening. He does have diminished DTRs BL equally. 2. Polydipsia - possibly contributing to above, however sodium is normal. Pt drinks minimum of 6x32 oz cups of water daily. Glucose 156, check A1C. Measure I/O. 3. HTN - continue home meds. elevated BP in ER. 4. Hx Seizures - continue TID valium. 5. Chronic back pain - gabapentin DVT ppx: heparin DC planning: PTOT. This patient was seen by Newton Bautista PA-C under the supervision of Dr. Riggins. <Wendy Riggins - Last Filed: 01/11/20 19:08> History of Present Illness The patient is a 34 year old M [] Past Medical History Allergies Penicillins Allergy (Verified 01/11/20 13:16) Rash - Physical Exam Vitals/I&O's: Vital Signs Temp Pulse Resp BP Pulse Ox 98 F 100 17 144/83 H 98 01/11/20 18:05 01/11/20 18:05 01/11/20 18:05 01/11/20 18:05 01/11/20 18:05 Oxygen Delivery Method Room Air Weight: 80.7 kg Body Mass Index (BMI) 27.8 Intake and Output for Last 24 Hours 01/09/20 01/10/20 01/11/20 23:59 23:59 23:59 Intake Total 980 / 980 Output Total 1750 / 1750 Balance -770 / -770 Laboratory Results 01/11/20 15:18: WBC 13.4 H, RBC 4.99, Hgb 15.1, Hct 44.6, MCV 89.4, MCH 30.3, MCHC 33.9, RDW Std Deviation 44.7 H, RDW Coeff of Todd 13.6, Plt Count 185, MPV 11.7, Immature Gran % (Auto) 1.300 H, Neut % (Auto) 71.5 H, Lymph % (Auto) 12.0 L, [place] % (Auto) 5.7, Eos % (Auto) 8.5 H, Baso % (Auto) 1.0, Absolute Neuts (auto) 9.6 H, Absolute Lymphs (auto) 1.61, Nucleated RBC % 0, ESR < 1 01/11/20 15:18: PT 11.2 L, INR 0.9, APTT 25.6 01/11/20 15:18: Sodium 143, Potassium 1.9 L*, Chloride 108 H, Carbon Dioxide 28.0, Anion Gap 7, BUN 6 L, Creatinine 0.91, Estim Creat Clear Calc 107.95, Est GFR (MDRD) Af Amer 123, Est GFR (MDRD) Non-Af 101, BUN/Creatinine Ratio 6.6 L, Glucose 156 H, Calcium 8.9, Magnesium 1.6, Total Bilirubin 0.20, AST 22, ALT 21, Alkaline Phosphatase 83, C-React Prot High Sens 1.24, Total Protein 6.5, Albumin 3.8, Globulin 2.7, Albumin/Globulin Ratio 1.4 01/11/20 15:18: Total Creatine Kinase 597 H 01/11/20 15:18: Hemoglobin A1c Pending 01/11/20 15:27: Urine Opiates Screen NEGATIVE, Urine Methadone Screen NEGATIVE, Ur Barbiturates Screen NEGATIVE, Ur Phencyclidine Scrn NEGATIVE, Ur Amphetamines Screen NEGATIVE, U Methamphetamin-MDMA NEGATIVE, U Benzodiazepines Scrn POSITIVE H, Urine Cocaine Screen NEGATIVE, U Cannabinoids Screen POSITIVE H, Ur Drug Screen Comment 01/11/20 15:27: Urine Color Yellow, Urine Clarity Clear, Urine pH 6.5, Ur Specific [place] 1.005, Urine Protein Negative, Urine Glucose (UA) Normal, Urine Ketones Negative, Urine Occult Blood Negative, Urine Nitrite Negative, Urine Bilirubin Negative, Urine Urobilinogen Normal, Ur Leukocyte Esterase Negative, Urine RBC 0 SEEN, Urine WBC 0 SEEN, Ur Squamous Epith Cells 0 SEEN, Urine Bacteria 0 SEEN, Urine Mucus 0 SEEN 01/11/20 18:02: Sodium 144, Potassium 2.5 L*, Chloride 111 H, Carbon Dioxide 29.0, Anion Gap 4 L, BUN 5 L, Creatinine 0.85, Estim Creat Clear Calc 115.57, Est GFR (MDRD) Af Amer 134, Est GFR (MDRD) Non-Af 110, BUN/Creatinine Ratio 5.9 L, Glucose 115 H, Calcium 8.7 Current Medications Acetaminophen (Tylenol) 650 mg PO Q6H PRN PRN PRN Reason: Pain Score 1-10/Temp > 100.7 F Amitriptyline HCl (Elavil) 75 mg PO QHS [facility] Amlodipine Besylate (Norvasc) 5 mg PO DAILY [facility] Diazepam (Valium) 10 mg PO TID [facility] Gabapentin (Neurontin) 400 mg PO 4X/DAYCM [facility] Heparin Sodium (Porcine) (Heparin Na) 5,000 unit SC Q8 [facility] Potassium Acetate 40 meq/ (Sodium Chloride) 270 mls @ 67.5 mls/hr IV X1 ONE Stop: 01/11/20 20:39 Last Admin: 01/11/20 17:05 Dose: 67.5 mls/hr Documented by: Sodium Chloride () 1,000 mls @ 150 mls/hr IV .Q6H40M [facility] Last Admin: 01/11/20 17:06 Dose: 150 mls/hr Documented by: Potassium Chloride () 10 meq in 100 mls @ 100 mls/hr IV BOLUS Q1H KRISTIN Stop: 01/12/20 00:59 Losartan Potassium (Cozaar) 25 mg PO DAILY [facility] Ondansetron HCl (Zofran) 4 mg IV Q8H PRN PRN PRN Reason: NAUSEA/VOMITING Oxycodone HCl (Oxyir) 10 mg PO Q4H PRN PRN PRN Reason: Pain Score 1-10/10 Pantoprazole Sodium (Protonix) 40 mg PO DAILY [facility] Sodium Chloride () 10 - 40 ml IV UD PRN PRN Reason: SALINE FLUSH Assessment/Plan This patient was seen in conjunction with SANAM Du. I have independently interviewed and examined the patient and reviewed pertinent historical, laboratory, and other data. Please refer to SANAM Du note for his patient's presentation, findings, and recommendations. I have reviewed and his note and concur with his documentation 34-year-old male with past medical history of hypertension, stress-induced seizure, chronic back pain, rheumatoid arthritis comes in with sudden onset of inability to move his upper and lower extremities restarted on the day of admission. Patient was in his usual state of health a day before admission. He woke up this morning and had proximal muscle weakness. He went back to bed. He woke up again and had inability to move his upper and lower extremities. His vitals were stable in the ED. CBCD 13.4, hemoglobin 15.1, platelet 185. Potassium is 1.9, repeat potassium is 2.5, potassium is 1.6, CK is 597, ESR is less than 1, C-reactive protein is 1.24 Urine tox is positive for benzos and cannabinoids Physical Exam: Gen: Uncomfortable, not pale, not jaundiced CVS:HS I +II, regular, no murmurs RESP: Clinically clear to auscultation GI: BS present and normal, soft, nontender, no palpable organs EXT:No edema ASSESSMENT: 1. Acute diffuse quadriplegia likely secondary to severe hypokalemia 2. Severe hypokalemia, unclear etiology 3. Severe hypomagnesemia, unclear etiology 4. Polydipsia 5. Hypertension 6. Pseudoseizures 7. Chronic back pain Plan: Continue with aggressive potassium replacement as well as magnesium Recheck in a.m. Nephrology consult to work-up severe hypokalemia Urine potassium, urine creatinine -to calculate urine potassium clearance Serum Aldactone, renin, TSH PT/OT to evaluate and treat If patient still remains quadriplegic with no change, consider MRI of the brain, cervical and thoracic spine with JO, and later repeat SOC consult Social work consult for discharge planning -patient may possibly need acute rehab if not improved Inpatient E&M: 58011 Init Hosp L3
[2020-01-11 18:39] LABS: BUN 5 mg/dL (7-18); Creatinine, Serum 0.85 mg/dL (0.70-1.30); Glucose 115 mg/dL (74-106)
[2020-01-11 18:40] LABS: Anion Gap 4 (5-15); BUN/Creat Ratio 5.9 RATIO (10-20); Calcium,Total 8.7 mg/dL (8.5-10.1); Chloride 111 mmol/L (98-107); EST Glomerular Filtration Rate 110 mL/min (>60); Est Glom Filt Rate - Afr Amer 134 mL/min (>60); Estimated Creatinine Clearance 115.57 ml/min; Potassium 2.5 mmol/L (3.5-5.1); Sodium Level 144 mmol/L (136-145)
[2020-01-11 19:43] LABS: Thyroid Stim Hormone (TSH) 0.59 uIU/mL (0.358-3.74)
[2020-01-11] MEDS: Magnesium Sulfate 4gm/100mL 4 GM/100 ML IV.SOLN. IV (21:33)
[2020-01-11] MEDS: Potassium Chloride 10mEq/100mL 10 MEQ/100 ML IV.SOLN. 100 MEQ IV BOLUS ×3 (21:34→23:55)
[2020-01-11] MEDS: Heparin Injection (Vial) 5,000 UNIT/ML VIAL 5000 UNIT SC (21:38)
[2020-01-11] MEDS: Amitriptyline 25 MG Tablet 75 MG PO (21:38)
[2020-01-11] MEDS: diazePAM 5 MG Tablet 10 MG PO (21:41)
[2020-01-11] MEDS: Lisinopril 10 MG Tablet PO (23:58)
[2020-01-11] MEDS: amLODIPine 5 MG Tablet PO (23:58)
[2020-01-11] MEDS: Pantoprazole Sodium 40 MG Tablet PO (23:59)
[2020-01-11] MEDS: Baclofen 10 MG Tablet 5 MG PO (23:59)
[2020-01-12] VITALS (10 sets, daily range): BP systolic 121–139; BP diastolic 69–94; PULSE 86–111; RESP 17–18; TEMP 36.4–37; O2SAT 97–99
[2020-01-12] MEDS: Potassium Chloride 10mEq/100mL 10 MEQ/100 ML IV.SOLN. 100 MEQ IV BOLUS (01:10)
[2020-01-12] MEDS: Acetaminophen 325 MG Tablet 650 MG PO ×2 (01:53→08:22)
[2020-01-12] MEDS: oxyCODONE 5 MG Tablet 10 MG PO ×5 (01:53→20:08)
[2020-01-12] MEDS: 0.9% Normal Saline 1,000 ML 150 ML IV ×3 (04:15→20:07)
[2020-01-12 05:28] LABS: Absolute Lymphocyte Count 1.89 X10^3/uL (0.83-4.51); Absolute Neutrophil Count 12.4 X10^3/uL (2.0-7.7); Basophil# 0.15 X10^3/uL; Basophil% 0.9 % (0-1); Eosinophil# 1.05 X10^3/uL; Eosinophils% 6.3 % (0-5); Hematocrit 42.6 % (40-54); Lymphocyte # 1.89 X10^3/ul (4.0); Lymphocyte % 11.4 % (19-41); Mean Corp Hgb Conc 35.2 g/dL (32-36); Mean Corpuscular Hgb 30.3 pg (27.0-32.0); Mean Corpuscular Volume 86.1 fL (80-94); Mean Platelet Vol. 11.6 fl (6.2-12.0); Monocyte% 5.4 % (0-10); NRBC Flagged by Analyzer 0 % (0-5); Neutrophil # 12.35 X10^3/uL (2.7-7.7); Neutrophil % 74.8 % (47-70); Platelet Count 184 K/mm3 (150-450); RBC Distribution Width CV 13.4 % (11.6-14.6); RBC Distribution Width SD 42.5 fl (35.1-43.9); Red Blood Count 4.95 M/mm3 (4.6-6.2); White Blood Count 16.5 K/mm3 (4.4-11.0)
[2020-01-12] MEDS: Heparin Injection (Vial) 5,000 UNIT/ML VIAL 5000 UNIT SC ×2 (05:48→21:47)
[2020-01-12] MEDS: 0.9% Saline Lock 10 ML Syringe IV (05:48)
[2020-01-12] MEDS: Baclofen 10 MG Tablet 5 MG PO ×3 (05:49→21:47)
[2020-01-12] MEDS: diazePAM 5 MG Tablet 10 MG PO ×3 (05:50→21:48)
[2020-01-12 05:59] LABS: ALB/GLOB Ratio 1.1 RATIO (0.9-2.4); AST(SGOT) 36 U/L (15-37); Alanine Aminotransfer ALT/SGPT 21 U/L (16-61); Albumin, Serum 3.2 g/dL (3.2-5.0); Alkaline Phosphatase 68 U/L (45-117); Anion Gap 5 (5-15); BUN 6 mg/dL (7-18); BUN/Creat Ratio 7.5 RATIO (10-20); CPK Total, Creatine Kinase 1210 U/L (39-308); Calcium,Total 7.8 mg/dL (8.5-10.1); Chloride 108 mmol/L (98-107); EST Glomerular Filtration Rate 118 mL/min (>60); Est Glom Filt Rate - Afr Amer 143 mL/min (>60); Estimated Creatinine Clearance 122.79 ml/min; Globulin 2.8 g/dL (2.2-4.2); Glucose 101 mg/dL (74-106); Magnesium 2.3 mg/dL (1.6-2.6); Potassium 4.9 mmol/L (3.5-5.1); Sodium Level 139 mmol/L (136-145)
[2020-01-12] MEDS: Gabapentin 400 MG Capsule PO ×4 (08:22→21:48)
--- NOTE | 2020-01-12 08:57 | PCM.PN.BLA ---
Progress Note Brief Nephrology Note. Full Consult to follow. Discussed management with Dr. Riggins last night. Pt has severe hypokalemia with mild hypomagnesemia. Suspect some component of renal wasting since there is no GI symptoms. Will check renin and aldosterone levels. Monitor BP. Stanley Haley MD STROKE Vital Signs/Narrative: Vital Signs Pulse 01/12/20 07:00 94
[2020-01-12] MEDS: amLODIPine 5 MG Tablet PO (09:13)
[2020-01-12] MEDS: Pantoprazole Sodium 40 MG Tablet PO (09:13)
[2020-01-12 09:45] LABS: Phosphorus 1.1 mg/dL (2.5-4.9)
--- NOTE | 2020-01-12 11:15 | CASEMGMT ---
This RN CM to room to complete CM assessment at this time and pt is sleeping without distress and does not awaken to verbal stimuli or knock on the door at this time. Will attempt again later. SStaten RN CM
[2020-01-12] MEDS: Na Biphos/Potassium Phosphate PACKET 1 PACKET PO ×2 (11:16→17:36)
--- NOTE | 2020-01-12 12:27 | CASEMGMT ---
MARINA spoke with Kimberlee from [employer]. She asked if SW could give patient the phone number for Medicaid. MARINA met with patient, introduced self and role at [facility]. SW gave him the phone number for Medicaid. Penny MELENDEZ
--- NOTE | 2020-01-12 13:04 | PCM.PN.HOSP ---
<Newton Bautista - Last Filed: 01/12/20 13:04> Patient Problems: Active and Suspected Problems Hypokalemia (Acute) Reason for Visit: BL Upper/Lower ext weakness. Subjective: Weakness in the upper and lower extremities markedly improved. Pt did require assistance with weight bearing but is able to stand at bedside now. No further muscle spasms. Ongoing generalized muscle aches. Vitals/I&O's: Vital Signs Temp Pulse Resp BP Pulse Ox 98.2 F 97 18 121/69 H 99 01/12/20 08:40 01/12/20 11:00 01/12/20 08:40 01/12/20 08:40 01/12/20 08:40 Oxygen Delivery Method Room Air Weight: 179 lb 10.828 oz Body Mass Index (BMI) 27.8 Intake and Output for Last 24 Hours 01/10/20 01/11/20 01/12/20 23:59 23:59 23:59 Intake Total 2840 / 2840 4025 / 4025 Output Total 2150 / 2150 3000 / 3000 Balance 690 / 690 1025 / 1025 General: Alert, Oriented x3, Cooperative HEENT: Atraumatic, PERRLA, EOMI, Normocephalic Neck: Supple, No JVD, Negative Carotid Bruits Lungs: Clear to auscultation, Normal air movement Cardiovascular: Regular rate, No murmurs Abdomen: Bowel Sounds Present, Soft, Non Tender Extremities: No edema, Capillary Refill Less than 3 Seconds Skin: No rashes, No breakdown Musculoskeletal: No Tenderness to Palpation of Joints or Extremities Neurological: Cranial nerves II-XII grossly intact Psych/Mental Status: Normal Affect, Appropriate, Alert and oriented to time, place, person, mood and affect Laboratory Results 01/11/20 15:18: WBC 13.4 H, RBC 4.99, Hgb 15.1, Hct 44.6, MCV 89.4, MCH 30.3, MCHC 33.9, RDW Std Deviation 44.7 H, RDW Coeff of Todd 13.6, Plt Count 185, MPV 11.7, Immature Gran % (Auto) 1.300 H, Neut % (Auto) 71.5 H, Lymph % (Auto) 12.0 L, Sunflower % (Auto) 5.7, Eos % (Auto) 8.5 H, Baso % (Auto) 1.0, Absolute Neuts (auto) 9.6 H, Absolute Lymphs (auto) 1.61, Nucleated RBC % 0, ESR < 1 01/11/20 15:18: PT 11.2 L, INR 0.9, APTT 25.6 01/11/20 15:18: Sodium 143, Potassium 1.9 L*, Chloride 108 H, Carbon Dioxide 28.0, Anion Gap 7, BUN 6 L, Creatinine 0.91, Estim Creat Clear Calc 107.95, Est GFR (MDRD) Af Amer 123, Est GFR (MDRD) Non-Af 101, BUN/Creatinine Ratio 6.6 L, Glucose 156 H, Calcium 8.9, Magnesium 1.6, Total Bilirubin 0.20, AST 22, ALT 21, Alkaline Phosphatase 83, C-React Prot High Sens 1.24, Total Protein 6.5, Albumin 3.8, Globulin 2.7, Albumin/Globulin Ratio 1.4 01/11/20 15:18: Total Creatine Kinase 597 H 01/11/20 15:18: Hemoglobin A1c 5.0 01/11/20 15:18: Renin Pending, Aldosterone Pending 01/11/20 15:27: Urine Opiates Screen NEGATIVE, Urine Methadone Screen NEGATIVE, Ur Barbiturates Screen NEGATIVE, Ur Phencyclidine Scrn NEGATIVE, Ur Amphetamines Screen NEGATIVE, U Methamphetamin-MDMA NEGATIVE, U Benzodiazepines Scrn POSITIVE H, Urine Cocaine Screen NEGATIVE, U Cannabinoids Screen POSITIVE H, Ur Drug Screen Comment 01/11/20 15:27: Urine Color Yellow, Urine Clarity Clear, Urine pH 6.5, Ur Specific [place] 1.005, Urine Protein Negative, Urine Glucose (UA) Normal, Urine Ketones Negative, Urine Occult Blood Negative, Urine Nitrite Negative, Urine Bilirubin Negative, Urine Urobilinogen Normal, Ur Leukocyte Esterase Negative, Urine RBC 0 SEEN, Urine WBC 0 SEEN, Ur Squamous Epith Cells 0 SEEN, Urine Bacteria 0 SEEN, Urine Mucus 0 SEEN 01/11/20 15:27: Urine Creatinine 20.70 01/11/20 15:27: Urine Potassium 1.0 01/11/20 18:02: Sodium 144, Potassium 2.5 L*, Chloride 111 H, Carbon Dioxide 29.0, Anion Gap 4 L, BUN 5 L, Creatinine 0.85, Estim Creat Clear Calc 115.57, Est GFR (MDRD) Af Amer 134, Est GFR (MDRD) Non-Af 110, BUN/Creatinine Ratio 5.9 L, Glucose 115 H, Calcium 8.7 01/11/20 18:02: TSH 0.59 01/12/20 05:00: WBC 16.5 H, RBC 4.95, Hgb 15.0, Hct 42.6, MCV 86.1, MCH 30.3, MCHC 35.2, RDW Std Deviation 42.5, RDW Coeff of Todd 13.4, Plt Count 184, MPV 11.6, Immature Gran % (Auto) 1.200 H, Neut % (Auto) 74.8 H, Lymph % (Auto) 11.4 L, Sunflower % (Auto) 5.4, Eos % (Auto) 6.3 H, Baso % (Auto) 0.9, Absolute Neuts (auto) 12.4 H, Absolute Lymphs (auto) 1.89, Nucleated RBC % 0 01/12/20 05:00: Sodium 139, Potassium 4.9, Chloride 108 H, Carbon Dioxide 26.0, Anion Gap 5, BUN 6 L, Creatinine 0.80, Estim Creat Clear Calc 122.79, Est GFR (MDRD) Af Amer 143, Est GFR (MDRD) Non-Af 118, BUN/Creatinine Ratio 7.5 L, Glucose 101, Calcium 7.8 L, Magnesium 2.3, Total Bilirubin 0.30, AST 36, ALT 21, Alkaline Phosphatase 68, Total Creatine Kinase 1210 H, Total Protein 6.0 L, Albumin 3.2, Globulin 2.8, Albumin/Globulin Ratio 1.1 01/12/20 05:00: Phosphorus 1.1 L* Current Medications Acetaminophen (Tylenol) 650 mg PO Q6H PRN PRN PRN Reason: Pain Score 1-10/Temp > 100.7 F Last Admin: 01/12/20 08:22 Dose: 650 mg Documented by: Amitriptyline HCl (Elavil) 75 mg PO QHS [facility] Last Admin: 01/11/20 21:38 Dose: 75 mg Documented by: Amlodipine Besylate (Norvasc) 5 mg PO DAILY [facility] Last Admin: 01/12/20 09:13 Dose: 5 mg Documented by: Baclofen (Lioresal) 5 mg PO TID [facility] Last Admin: 01/12/20 05:49 Dose: 5 mg Documented by: Diazepam (Valium) 10 mg PO TID [facility] Last Admin: 01/12/20 05:50 Dose: 10 mg Documented by: Gabapentin (Neurontin) 400 mg PO 4X/DAYCM [facility] Last Admin: 01/12/20 11:17 Dose: 400 mg Documented by: Heparin Sodium (Porcine) (Heparin Na) 5,000 unit SC Q8 [facility] Last Admin: 01/12/20 05:48 Dose: 5,000 unit Documented by: Sodium Chloride () 1,000 mls @ 150 mls/hr IV .Q6H40M [facility] Last Infusion: 01/12/20 11:25 Dose: 0 mls/hr Documented by: Lisinopril (Zestril) 10 mg PO HS [facility] Last Admin: 01/11/20 23:58 Dose: 10 mg Documented by: Ondansetron HCl (Zofran) 4 mg IV Q8H PRN PRN PRN Reason: NAUSEA/VOMITING Oxycodone HCl (Oxyir) 10 mg PO Q4H PRN PRN PRN Reason: Pain Score 1-10/10 Last Admin: 01/12/20 11:23 Dose: 10 mg Documented by: Pantoprazole Sodium (Protonix) 40 mg PO DAILY [facility] Last Admin: 01/12/20 09:13 Dose: 40 mg Documented by: Potassium Phos/Sodium Phos (Neutra-Phos Packet) 1 packet PO BIDCM [facility] Last Admin: 01/12/20 11:16 Dose: 1 packet Documented by: Sodium Chloride () 10 - 40 ml IV UD PRN PRN Reason: SALINE FLUSH Last Admin: 01/12/20 05:48 Dose: 10 ml Documented by: STROKE Vital Signs/Narrative: Vital Signs Pulse 01/12/20 11:00 97 Medical Necessity - Tobacco Use Smoking Status: Current some day smoker Tobacco Use: Cigarettes, Vapor Assessment/Plan All Active Problems Hypokalemia (Acute) Paralysis (Acute) Seizure (Acute) 1. BL upper and lower extremity weakness - 2/2 hypokalemia. Associated hypomagnesemia, hypophosphatemia, elevated chloride - replete. K+ normalized now. 2. Polydipsia - possibly contributing to above, however sodium is normal. Pt drinks minimum of 6x32 oz cups of water daily. Glucose 156, check A1C. Measure I/O. Nephrology consulted. UA neg. TSH normal. Renin/Aldosterone pending. 3. HTN - continue home meds. elevated BP in ER. Pt uses losartan at home. 4. Hx Seizures - continue TID valium. 5. Chronic back pain - gabapentin 6. RA - pt of Dr. Ochoa - on chronic opiates. uses IM Testosterone for opiate associated Low T. Previously on MTX, stopped due to side effects, previously on Humira stopped due to loss of insurance/too expensive. DVT ppx: heparin DC planning: PTOT. This patient was seen by Newton Bautista PA-C under the supervision of Dr. Riggins. <Frankie Wooten - Last Filed: 01/12/20 14:11> Subjective: feeling better. still with cramping in legs. Vitals/I&O's: Vital Signs Temp Pulse Resp BP Pulse Ox 36.8 C 97 18 121/69 H 99 01/12/20 08:40 01/12/20 11:00 01/12/20 08:40 01/12/20 08:40 01/12/20 08:40 Oxygen Delivery Method Room Air Weight: 81.5 kg Body Mass Index (BMI) 27.8 Intake and Output for Last 24 Hours 01/10/20 01/11/20 01/12/20 23:59 23:59 23:59 Intake Total 2840 / 2840 4280 / 4280 Output Total 2150 / 2150 3000 / 3000 Balance 690 / 690 1280 / 1280 General: Alert, Cooperative HEENT: Atraumatic, Normocephalic Lungs: Clear to auscultation, Normal air movement, No rhonchi, No wheeze Cardiovascular: Regular rate, No murmurs Neurological: Motor Exam 5/5 strength throughout Psych/Mental Status: Normal Affect, Appropriate Laboratory Results 01/11/20 15:18: WBC 13.4 H, RBC 4.99, Hgb 15.1, Hct 44.6, MCV 89.4, MCH 30.3, MCHC 33.9, RDW Std Deviation 44.7 H, RDW Coeff of Todd 13.6, Plt Count 185, MPV 11.7, Immature Gran % (Auto) 1.300 H, Neut % (Auto) 71.5 H, Lymph % (Auto) 12.0 L, Sunflower % (Auto) 5.7, Eos % (Auto) 8.5 H, Baso % (Auto) 1.0, Absolute Neuts (auto) 9.6 H, Absolute Lymphs (auto) 1.61, Nucleated RBC % 0, ESR < 1 01/11/20 15:18: PT 11.2 L, INR 0.9, APTT 25.6 01/11/20 15:18: Sodium 143, Potassium 1.9 L*, Chloride 108 H, Carbon Dioxide 28.0, Anion Gap 7, BUN 6 L, Creatinine 0.91, Estim Creat Clear Calc 107.95, Est GFR (MDRD) Af Amer 123, Est GFR (MDRD) Non-Af 101, BUN/Creatinine Ratio 6.6 L, Glucose 156 H, Calcium 8.9, Magnesium 1.6, Total Bilirubin 0.20, AST 22, ALT 21, Alkaline Phosphatase 83, C-React Prot High Sens 1.24, Total Protein 6.5, Albumin 3.8, Globulin 2.7, Albumin/Globulin Ratio 1.4 01/11/20 15:18: Total Creatine Kinase 597 H 01/11/20 15:18: Hemoglobin A1c 5.0 01/11/20 15:18: Renin Pending, Aldosterone Pending 01/11/20 15:27: Urine Opiates Screen NEGATIVE, Urine Methadone Screen NEGATIVE, Ur Barbiturates Screen NEGATIVE, Ur Phencyclidine Scrn NEGATIVE, Ur Amphetamines Screen NEGATIVE, U Methamphetamin-MDMA NEGATIVE, U Benzodiazepines Scrn POSITIVE H, Urine Cocaine Screen NEGATIVE, U Cannabinoids Screen POSITIVE H, Ur Drug Screen Comment 01/11/20 15:27: Urine Color Yellow, Urine Clarity Clear, Urine pH 6.5, Ur Specific [place] 1.005, Urine Protein Negative, Urine Glucose (UA) Normal, Urine Ketones Negative, Urine Occult Blood Negative, Urine Nitrite Negative, Urine Bilirubin Negative, Urine Urobilinogen Normal, Ur Leukocyte Esterase Negative, Urine RBC 0 SEEN, Urine WBC 0 SEEN, Ur Squamous Epith Cells 0 SEEN, Urine Bacteria 0 SEEN, Urine Mucus 0 SEEN 01/11/20 15:27: Urine Creatinine 20.70 01/11/20 15:27: Urine Potassium 1.0 01/11/20 18:02: Sodium 144, Potassium 2.5 L*, Chloride 111 H, Carbon Dioxide 29.0, Anion Gap 4 L, BUN 5 L, Creatinine 0.85, Estim Creat Clear Calc 115.57, Est GFR (MDRD) Af Amer 134, Est GFR (MDRD) Non-Af 110, BUN/Creatinine Ratio 5.9 L, Glucose 115 H, Calcium 8.7 01/11/20 18:02: TSH 0.59 01/12/20 05:00: WBC 16.5 H, RBC 4.95, Hgb 15.0, Hct 42.6, MCV 86.1, MCH 30.3, MCHC 35.2, RDW Std Deviation 42.5, RDW Coeff of Todd 13.4, Plt Count 184, MPV 11.6, Immature Gran % (Auto) 1.200 H, Neut % (Auto) 74.8 H, Lymph % (Auto) 11.4 L, Sunflower % (Auto) 5.4, Eos % (Auto) 6.3 H, Baso % (Auto) 0.9, Absolute Neuts (auto) 12.4 H, Absolute Lymphs (auto) 1.89, Nucleated RBC % 0 01/12/20 05:00: Sodium 139, Potassium 4.9, Chloride 108 H, Carbon Dioxide 26.0, Anion Gap 5, BUN 6 L, Creatinine 0.80, Estim Creat Clear Calc 122.79, Est GFR (MDRD) Af Amer 143, Est GFR (MDRD) Non-Af 118, BUN/Creatinine Ratio 7.5 L, Glucose 101, Calcium 7.8 L, Magnesium 2.3, Total Bilirubin 0.30, AST 36, ALT 21, Alkaline Phosphatase 68, Total Creatine Kinase 1210 H, Total Protein 6.0 L, Albumin 3.2, Globulin 2.8, Albumin/Globulin Ratio 1.1 01/12/20 05:00: Phosphorus 1.1 L* Current Medications Acetaminophen (Tylenol) 650 mg PO Q6H PRN PRN PRN Reason: Pain Score 1-10/Temp > 100.7 F Last Admin: 01/12/20 08:22 Dose: 650 mg Documented by: Amitriptyline HCl (Elavil) 75 mg PO QHS [facility] Last Admin: 01/11/20 21:38 Dose: 75 mg Documented by: Amlodipine Besylate (Norvasc) 5 mg PO DAILY [facility] Last Admin: 01/12/20 09:13 Dose: 5 mg Documented by: Baclofen (Lioresal) 5 mg PO TID [facility] Last Admin: 01/12/20 13:34 Dose: 5 mg Documented by: Diazepam (Valium) 10 mg PO TID [facility] Last Admin: 01/12/20 13:34 Dose: 10 mg Documented by: Gabapentin (Neurontin) 400 mg PO 4X/DAYCM [facility] Last Admin: 01/12/20 11:17 Dose: 400 mg Documented by: Heparin Sodium (Porcine) (Heparin Na) 5,000 unit SC Q8 [facility] Last Admin: 01/12/20 13:37 Dose: Not Given Documented by: Sodium Chloride () 1,000 mls @ 150 mls/hr IV .Q6H40M [facility] Last Infusion: 01/12/20 13:29 Dose: 150 mls/hr Documented by: Lisinopril (Zestril) 10 mg PO HS [facility] Last Admin: 01/11/20 23:58 Dose: 10 mg Documented by: Ondansetron HCl (Zofran) 4 mg IV Q8H PRN PRN PRN Reason: NAUSEA/VOMITING Oxycodone HCl (Oxyir) 10 mg PO Q4H PRN PRN PRN Reason: Pain Score 1-10/10 Last Admin: 01/12/20 11:23 Dose: 10 mg Documented by: Pantoprazole Sodium (Protonix) 40 mg PO DAILY [facility] Last Admin: 01/12/20 09:13 Dose: 40 mg Documented by: Potassium Phos/Sodium Phos (Neutra-Phos Packet) 1 packet PO BIDCM [facility] Last Admin: 01/12/20 11:16 Dose: 1 packet Documented by: Sodium Chloride () 10 - 40 ml IV UD PRN PRN Reason: SALINE FLUSH Last Admin: 01/12/20 05:48 Dose: 10 ml Documented by: STROKE Vital Signs/Narrative: Vital Signs Pulse 01/12/20 11:00 97 Assessment/Plan Patient seen and examined independently. Data reviewed. I agree with the above note by the physician assistant refinery operator. 1. hypokalemia: improved. likely due to polydipsia. follow up aldosterone and renin levels. 2. hypophosphatemia: replace 3. hypomagnesemia: resolved after replacement 4. rhabdomyolysis: likely due to muscle spasms. 5. weakness: due to electrolyte abnormalities 6. polydipsia: drinks roughly 6 liters of fluid/day. states that he does so because is mouth is very dry. advised cutting back on fluid intake and try Biotene. Inpatient E&M: 26439 Subs Hosp L3
--- NOTE | 2020-01-12 13:34 | CASEMGMT ---
Assessment- SW completed assessment with patient at bedside. His significant other was also present. Patient was ok with talking in front of her. SW also confirmed address and phone numbers Living situation- Patient lives in a 2 story home with a couple entry steps with his significant other. PCP: Dr Hu Specialists: None [facility]: [facility] DME: used to have a cane, but it broke ADL's/IADL's: Patient is independent in all activities of daily living. He occasionally uses a cane when his knee is bugging him. Past SNF/rehab: None Past HH: No LW: No POA: No Plan: Patient was up and walking around the room when SW walked in. He said he was laid off due to COVID and lost his insurance. He did not get [employer] because it would have been around a thousand dollars. MARINA wrote down [employer] phone number. He is planning on applying for Medicaid. SW gave him the Medicaid hotline number earlier. SW gave him a packet of self pay resources. He did not anticipate any d/c needs. Penny MCLEOD [employer]
--- NOTE | 2020-01-12 15:33 | PCM.CONS.R ---
Consultation - Renal 01/12/20 PCP/ Referring MD: Requesting physician: Wendy Riggins Primary care physician: Gil Hu Reason for Consultation:: Severe hypokalemia associated with paralysis - History of Present Illness History of Present Illness: The patient is a 34 year old M with past history of HTN, RA (not on DMARD), and seizure disorder presented with acute onset quadriparesis which occurred the morning of presentation. The pt was found to have serum K of 1.9 mmol/L on presentation (01/11/20 15:18). The pt denies prior episodes similar to yesterday. Record review reveals K had been as low as 2.7 mmol/L in 11/2016 as well. He does not remember having paralysis then, but he thinks that he may have had seizure at that time. The pt denies SOB or altered MS on presentation. He was in his usual state of health 24 hr prior to presentation. The pt denies bigh carbohydrate meal prior to the onset of these symptoms. He denies unusually vigorous physical activity prior to the onset of weakness as well. He feels better today and is able to walk in his room. he does complain of soreness of the proximal muscles of his LE. The pt denies chronic diarrhea or vomiting. There denies history of pica. - Allergies Allergies: Allergies Penicillins Allergy (Verified 01/11/20 13:16) Rash - Current Medications Current Medications: Current Medications Acetaminophen (Tylenol) 650 mg PO Q6H PRN PRN PRN Reason: Pain Score 1-10/Temp > 100.7 F Last Admin: 01/12/20 08:22 Dose: 650 mg Documented by: Amitriptyline HCl (Elavil) 75 mg PO QHS [facility] Last Admin: 01/11/20 21:38 Dose: 75 mg Documented by: Amlodipine Besylate (Norvasc) 5 mg PO DAILY [facility] Last Admin: 01/12/20 09:13 Dose: 5 mg Documented by: Baclofen (Lioresal) 5 mg PO TID [facility] Last Admin: 01/12/20 13:34 Dose: 5 mg Documented by: Diazepam (Valium) 10 mg PO TID [facility] Last Admin: 01/12/20 13:34 Dose: 10 mg Documented by: Gabapentin (Neurontin) 400 mg PO 4X/DAYCM [facility] Last Admin: 01/12/20 11:17 Dose: 400 mg Documented by: Heparin Sodium (Porcine) (Heparin Na) 5,000 unit SC Q8 [facility] Last Admin: 01/12/20 13:37 Dose: Not Given Documented by: Sodium Chloride () 1,000 mls @ 150 mls/hr IV .Q6H40M [facility] Last Infusion: 01/12/20 13:29 Dose: 150 mls/hr Documented by: Lisinopril (Zestril) 10 mg PO HS [facility] Last Admin: 01/11/20 23:58 Dose: 10 mg Documented by: Ondansetron HCl (Zofran) 4 mg IV Q8H PRN PRN PRN Reason: NAUSEA/VOMITING Oxycodone HCl (Oxyir) 10 mg PO Q4H PRN PRN PRN Reason: Pain Score 1-10/10 Last Admin: 01/12/20 11:23 Dose: 10 mg Documented by: Pantoprazole Sodium (Protonix) 40 mg PO DAILY [facility] Last Admin: 01/12/20 09:13 Dose: 40 mg Documented by: Potassium Phos/Sodium Phos (Neutra-Phos Packet) 1 packet PO BIDCM [facility] Last Admin: 01/12/20 11:16 Dose: 1 packet Documented by: Sodium Chloride () 10 - 40 ml IV UD PRN PRN Reason: SALINE FLUSH Last Admin: 01/12/20 05:48 Dose: 10 ml Documented by: - Past Medical History Past Medical History (Chronic Problems): Chronic Problems Seronegative rheumatoid arthritis (Chronic) Hypertension (Chronic) - Social History Smoking Status: Current some day smoker Alcohol: None Drugs: Marijuana - Family History Maternal History Items: Diabetes Paternal History Items: Cancer, Hypertension Review of Systems Constitutional: Reports: Weakness. Denies: Anorexia, Chills Eyes: Denies: Blurred vision, Cataracts, Pain, Redness HEENT: Denies: Head Aches, Sinus Congestion, Sinus Drainage Cardiovascular: Denies: Chest Pain, Chest Pressure, Palpitations Respiratory: Denies: Cough, Shortness of breath at rest, Sputum production Gastrointestinal: Denies: Abdominal Pain, Diarrhea, Nausea, Vomiting Genitourinary: Reports: Frequency. Denies: Dysuria, Incontinence, Retention, Urgency Musculoskeletal: Reports: Muscle pain. Denies: Joint Pain, Joint Tenderness Skin: Denies: Rash, Wounds Neurological: Denies: Numbness, Tingling, Focal weakness Psychiatric: Denies: Anxiety, Depression, Homicidal Ideations, Suicidal Ideations Hematologic/ Lymphatic: Denies: Easy Bruising, Easy Bleeding Patient Problems: Active and Suspected Problems Hypokalemia (Acute) - Physical Exam Vitals/I&O's: Vital Signs Temp Pulse Resp BP Pulse Ox 98.2 F 106 H 18 121/69 H 99 01/12/20 08:40 01/12/20 15:00 01/12/20 08:40 01/12/20 08:40 01/12/20 08:40 Oxygen Delivery Method Room Air Weight: 81.5 kg Body Mass Index (BMI) 27.8 Intake and Output for Last 24 Hours 01/10/20 01/11/20 01/12/20 23:59 23:59 23:59 Intake Total 2840 / 2840 4280 / 4280 Output Total 2150 / 2150 3000 / 3000 Balance 690 / 690 1280 / 1280 General: Alert, Oriented x3, Cooperative HEENT: Atraumatic, PERRLA, EOMI Oral: Moist Mucosa Neck: Supple Lungs: Clear to auscultation Cardiovascular: Normal S1, Normal S2, No murmurs Abdomen: Bowel Sounds Present, Soft, Non Tender Extremities: No clubbing, No cyanosis, No edema Skin: No rashes Lymphatic: No Cervical, Supraclavicular, or Inguinal Adenopathy Neurological: Cranial nerves II-XII grossly intact Psych/Mental Status: Normal Affect Laboratory Results 01/11/20 15:18: WBC 13.4 H, RBC 4.99, Hgb 15.1, Hct 44.6, MCV 89.4, MCH 30.3, MCHC 33.9, RDW Std Deviation 44.7 H, RDW Coeff of Todd 13.6, Plt Count 185, MPV 11.7, Immature Gran % (Auto) 1.300 H, Neut % (Auto) 71.5 H, Lymph % (Auto) 12.0 L, Alexander % (Auto) 5.7, Eos % (Auto) 8.5 H, Baso % (Auto) 1.0, Absolute Neuts (auto) 9.6 H, Absolute Lymphs (auto) 1.61, Nucleated RBC % 0, ESR < 1 01/11/20 15:18: PT 11.2 L, INR 0.9, APTT 25.6 01/11/20 15:18: Sodium 143, Potassium 1.9 L*, Chloride 108 H, Carbon Dioxide 28.0, Anion Gap 7, BUN 6 L, Creatinine 0.91, Estim Creat Clear Calc 107.95, Est GFR (MDRD) Af Amer 123, Est GFR (MDRD) Non-Af 101, BUN/Creatinine Ratio 6.6 L, Glucose 156 H, Calcium 8.9, Magnesium 1.6, Total Bilirubin 0.20, AST 22, ALT 21, Alkaline Phosphatase 83, C-React Prot High Sens 1.24, Total Protein 6.5, Albumin 3.8, Globulin 2.7, Albumin/Globulin Ratio 1.4 01/11/20 15:18: Total Creatine Kinase 597 H 01/11/20 15:18: Hemoglobin A1c 5.0 01/11/20 15:18: Renin Pending, Aldosterone Pending 01/11/20 15:27: Urine Opiates Screen NEGATIVE, Urine Methadone Screen NEGATIVE, Ur Barbiturates Screen NEGATIVE, Ur Phencyclidine Scrn NEGATIVE, Ur Amphetamines Screen NEGATIVE, U Methamphetamin-MDMA NEGATIVE, U Benzodiazepines Scrn POSITIVE H, Urine Cocaine Screen NEGATIVE, U Cannabinoids Screen POSITIVE H, Ur Drug Screen Comment 01/11/20 15:27: Urine Color Yellow, Urine Clarity Clear, Urine pH 6.5, Ur Specific [place] 1.005, Urine Protein Negative, Urine Glucose (UA) Normal, Urine Ketones Negative, Urine Occult Blood Negative, Urine Nitrite Negative, Urine Bilirubin Negative, Urine Urobilinogen Normal, Ur Leukocyte Esterase Negative, Urine RBC 0 SEEN, Urine WBC 0 SEEN, Ur Squamous Epith Cells 0 SEEN, Urine Bacteria 0 SEEN, Urine Mucus 0 SEEN 01/11/20 15:27: Urine Creatinine 20.70 01/11/20 15:27: Urine Potassium 1.0 01/11/20 18:02: Sodium 144, Potassium 2.5 L*, Chloride 111 H, Carbon Dioxide 29.0, Anion Gap 4 L, BUN 5 L, Creatinine 0.85, Estim Creat Clear Calc 115.57, Est GFR (MDRD) Af Amer 134, Est GFR (MDRD) Non-Af 110, BUN/Creatinine Ratio 5.9 L, Glucose 115 H, Calcium 8.7 01/11/20 18:02: TSH 0.59 01/12/20 05:00: WBC 16.5 H, RBC 4.95, Hgb 15.0, Hct 42.6, MCV 86.1, MCH 30.3, MCHC 35.2, RDW Std Deviation 42.5, RDW Coeff of Todd 13.4, Plt Count 184, MPV 11.6, Immature Gran % (Auto) 1.200 H, Neut % (Auto) 74.8 H, Lymph % (Auto) 11.4 L, Alexander % (Auto) 5.4, Eos % (Auto) 6.3 H, Baso % (Auto) 0.9, Absolute Neuts (auto) 12.4 H, Absolute Lymphs (auto) 1.89, Nucleated RBC % 0 01/12/20 05:00: Sodium 139, Potassium 4.9, Chloride 108 H, Carbon Dioxide 26.0, Anion Gap 5, BUN 6 L, Creatinine 0.80, Estim Creat Clear Calc 122.79, Est GFR (MDRD) Af Amer 143, Est GFR (MDRD) Non-Af 118, BUN/Creatinine Ratio 7.5 L, Glucose 101, Calcium 7.8 L, Magnesium 2.3, Total Bilirubin 0.30, AST 36, ALT 21, Alkaline Phosphatase 68, Total Creatine Kinase 1210 H, Total Protein 6.0 L, Albumin 3.2, Globulin 2.8, Albumin/Globulin Ratio 1.1 01/12/20 05:00: Phosphorus 1.1 L* Current Medications Acetaminophen (Tylenol) 650 mg PO Q6H PRN PRN PRN Reason: Pain Score 1-10/Temp > 100.7 F Last Admin: 01/12/20 08:22 Dose: 650 mg Documented by: Amitriptyline HCl (Elavil) 75 mg PO QHS [facility] Last Admin: 01/11/20 21:38 Dose: 75 mg Documented by: Amlodipine Besylate (Norvasc) 5 mg PO DAILY [facility] Last Admin: 01/12/20 09:13 Dose: 5 mg Documented by: Baclofen (Lioresal) 5 mg PO TID [facility] Last Admin: 01/12/20 13:34 Dose: 5 mg Documented by: Diazepam (Valium) 10 mg PO TID [facility] Last Admin: 01/12/20 13:34 Dose: 10 mg Documented by: Gabapentin (Neurontin) 400 mg PO 4X/DAYCM [facility] Last Admin: 01/12/20 11:17 Dose: 400 mg Documented by: Heparin Sodium (Porcine) (Heparin Na) 5,000 unit SC Q8 [facility] Last Admin: 01/12/20 13:37 Dose: Not Given Documented by: Sodium Chloride () 1,000 mls @ 150 mls/hr IV .Q6H40M [facility] Last Infusion: 01/12/20 13:29 Dose: 150 mls/hr Documented by: Lisinopril (Zestril) 10 mg PO HS [facility] Last Admin: 01/11/20 23:58 Dose: 10 mg Documented by: Ondansetron HCl (Zofran) 4 mg IV Q8H PRN PRN PRN Reason: NAUSEA/VOMITING Oxycodone HCl (Oxyir) 10 mg PO Q4H PRN PRN PRN Reason: Pain Score 1-10/10 Last Admin: 01/12/20 11:23 Dose: 10 mg Documented by: Pantoprazole Sodium (Protonix) 40 mg PO DAILY [facility] Last Admin: 01/12/20 09:13 Dose: 40 mg Documented by: Potassium Phos/Sodium Phos (Neutra-Phos Packet) 1 packet PO BIDCM [facility] Last Admin: 01/12/20 11:16 Dose: 1 packet Documented by: Sodium Chloride () 10 - 40 ml IV UD PRN PRN Reason: SALINE FLUSH Last Admin: 01/12/20 05:48 Dose: 10 ml Documented by: Assessment/Plan All Active Problems Hypokalemia (Acute) Paralysis (Acute) Seizure (Acute) Severe hypokalemia associated with hypophosphatemia and quadriparesis. 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 There was no history of obvious GI or renal loss of K. We have already sent renin and aldosterone levels (pending), but I have low suspicion for hyperaldosteronism. I wonder if the episode of what was thought to be seizure in 2017 was also HPP as well. The pt was also hypokalemic at the time with K of 2.7. EEG was also normal. K has also been normal between the 2 episodes. On the other hand, his thyroid function is normal and there is no precipitating factors such as vigorous exercise or big carbohydrate load. Carbonic anhydrase inhibitor has been shown to prevent episodes of recurrent HPP (unknown mechanism). Since the episode of seizure 3 years ago was associated with hypokalemia as well, I think it's worthwhile to start acetazolamide and watch for recurrence and tolerance. Continue current effort to replete K and phos. Will recheck K and phos in am. Once discharged, i will arrange for follow up with us in our [place] office.
--- NOTE | 2020-01-12 15:34 | NURSING ---
Read and reviewed SN documentation
[2020-01-12] MEDS: AcetaZOLAMIDE 250 MG Tablet PO (21:47)
[2020-01-12] MEDS: Amitriptyline 25 MG Tablet 75 MG PO (21:47)
[2020-01-12] MEDS: Lisinopril 10 MG Tablet PO (21:48)
[2020-01-12] MEDS: Ibuprofen 400 MG Tablet PO (23:00)
[2020-01-13] VITALS (9 sets, daily range): BP systolic 107–122; BP diastolic 61–89; PULSE 73–101; RESP 16–18; TEMP 36.2–37; O2SAT 97–100
[2020-01-13] MEDS: oxyCODONE 5 MG Tablet 10 MG PO ×6 (00:15→22:25)
[2020-01-13] MEDS: 0.9% Normal Saline 1,000 ML 150 ML IV (02:29)
--- NOTE | 2020-01-13 04:00 | NURSING ---
On the previous shift (10 AM), this RN observed a vape pen in bed with pt. This RN spoke with pt and educated him on [facility]'s no vaping policy and that he was to keep it put away and not use it during his stay here. Pt stated his girlfriend would take it home with her and was agreeable to not using it. This RN noticed pt vaping last evening 01/11 around 2200 while checking his vitals and giving his PM medications. This RN spoke with the charge nurse and verified that his behavior was not acceptable. This RN spoke with pt and explained that he was not allowed to vape while here and he agreed to have it locked in the med drawer. Pt stated he was just getting a little too comfortable here. This RN noticed that the vape pen was a different one from the previous shift and questioned pt if he had another one with him as well. Pt denied having a second pen. Upon waking pt to check his vitals around 0300 01/12, this RN noticed the other pen laying in the bed. When pt got up, he tried to hide it under his gown. This RN explained that it needs to be locked up as well. Pt acknowledged that he lied the previous evening about not having another one and apologized to this RN. Upon questioning, pt denies any more vape pens in his room. Pt acknowledges that it is not acceptable to vape here and that it's detrimental to his health. Pt states he only does it here and there for his nerves. There are currently two of his vape pens locked up in the med framing machine tender his room. Denise Dejesus RN
[2020-01-13] MEDS: diazePAM 5 MG Tablet 10 MG PO ×3 (05:08→21:12)
[2020-01-13] MEDS: Baclofen 10 MG Tablet 5 MG PO ×3 (05:08→21:11)
[2020-01-13] MEDS: Heparin Injection (Vial) 5,000 UNIT/ML VIAL 5000 UNIT SC ×3 (05:10→21:10)
[2020-01-13 07:24] LABS: Absolute Lymphocyte Count 2.35 X10^3/uL (0.83-4.51); Absolute Neutrophil Count 5.7 X10^3/uL (2.0-7.7); Basophil# 0.14 X10^3/uL; Basophil% 1.4 % (0-1); Eosinophil# 1.07 X10^3/uL; Eosinophils% 10.6 % (0-5); Hematocrit 42.7 % (40-54); Hemoglobin 14.5 g/dL (13.0-16.5); Lymphocyte # 2.35 X10^3/ul (4.0); Lymphocyte % 23.2 % (19-41); Mean Corpuscular Hgb 30.1 pg (27.0-32.0); Mean Corpuscular Volume 88.8 fL (80-94); Monocyte# 0.51 X10^3/uL; NRBC Flagged by Analyzer 0 % (0-5); Neutrophil # 5.71 X10^3/uL (2.7-7.7); Neutrophil % 56.2 % (47-70); Platelet Count 174 K/mm3 (150-450); RBC Distribution Width CV 14.5 % (11.6-14.6); RBC Distribution Width SD 47.5 fl (35.1-43.9); Red Blood Count 4.81 M/mm3 (4.6-6.2); White Blood Count 10.1 K/mm3 (4.4-11.0)
[2020-01-13 07:59] LABS: Anion Gap 7 (5-15); BUN 6 mg/dL (7-18); BUN/Creat Ratio 6.6 RATIO (10-20); CPK Total, Creatine Kinase 2918 U/L (39-308); Calcium,Total 8.6 mg/dL (8.5-10.1); Chloride 112 mmol/L (98-107); EST Glomerular Filtration Rate 102 mL/min (>60); Est Glom Filt Rate - Afr Amer 124 mL/min (>60); Estimated Creatinine Clearance 109.15 ml/min; Glucose 126 mg/dL (74-106); Phosphorus 5.7 mg/dL (2.5-4.9); Potassium 3.5 mmol/L (3.5-5.1); Sodium Level 141 mmol/L (136-145)
[2020-01-13] MEDS: Gabapentin 400 MG Capsule PO ×4 (08:49→21:12)
[2020-01-13] MEDS: AcetaZOLAMIDE 250 MG Tablet PO ×2 (08:50→21:10)
[2020-01-13] MEDS: Pantoprazole Sodium 40 MG Tablet PO (08:51)
[2020-01-13] MEDS: amLODIPine 5 MG Tablet PO (08:51)
[2020-01-13] MEDS: Na Biphos/Potassium Phosphate PACKET 1 PACKET PO (09:40)
[2020-01-13] MEDS: Spironolactone 25 MG Tablet PO (11:03)
--- NOTE | 2020-01-13 11:51 | PN_ITS ---
<Newton Bautista PA - Last Filed: 01/13/20 11:51> Patient Problems: Active and Suspected Problems Hypokalemia (Acute) Reason for Visit: BL upper/lower ext weakness Subjective: Patient ambulating in the mehta using the rail for support. Pt did well with PT/OT who recommends no further needs. The patient has ongoing muscle aching. No fever/chills. No sob/cough. Pt very upset concerning his new diagnoses, chronic medical conditions, and difficulty obtaining insurance coverage. The patient continues to consume copious water. Vitals/I&O's: Vital Signs Temp Pulse Resp BP Pulse Ox 98.1 F 86 18 118/76 99 01/13/20 08:47 01/13/20 08:47 01/13/20 08:47 01/13/20 08:47 01/13/20 08:47 Oxygen Delivery Method Room Air Weight: 177 lb 7.554 oz Body Mass Index (BMI) 27.8 Intake and Output for Last 24 Hours 01/11/20 01/12/20 01/13/20 23:59 23:59 23:59 Intake Total 2840 / 2840 6895 / 6895 2555 / 2555 Output Total 2150 / 2150 3000 / 3000 Balance 690 / 690 3895 / 3895 2555 / 2555 General: Alert, Oriented x3, Cooperative HEENT: Atraumatic, PERRLA, EOMI, Normocephalic Neck: Supple, No JVD, Negative Carotid Bruits Lungs: Clear to auscultation, Normal air movement Cardiovascular: Regular rate, No murmurs Abdomen: Bowel Sounds Present, Soft, Non Tender Extremities: No edema, Capillary Refill Less than 3 Seconds Skin: No rashes, No breakdown Musculoskeletal: No Tenderness to Palpation of Joints or Extremities Neurological: Cranial nerves II-XII grossly intact Psych/Mental Status: Normal Affect, Appropriate, Alert and oriented to time, place, person, mood and affect Laboratory Results 01/13/20 07:01: WBC 10.1, RBC 4.81, Hgb 14.5, Hct 42.7, MCV 88.8, MCH 30.1, MCHC 34.0, RDW Std Deviation 47.5 H, RDW Coeff of Todd 14.5, Plt Count 174, MPV 12.0, Immature Gran % (Auto) 3.600 H, Neut % (Auto) 56.2, Lymph % (Auto) 23.2, [place] % (Auto) 5.0, Eos % (Auto) 10.6 H, Baso % (Auto) 1.4 H, Absolute Neuts (auto) 5.7, Absolute Lymphs (auto) 2.35, Nucleated RBC % 0 01/13/20 07:01: Sodium 141, Potassium 3.5, Chloride 112 H, Carbon Dioxide 22.0, Anion Gap 7, BUN 6 L, Creatinine 0.90, Estim Creat Clear Calc 109.15, Est GFR (MDRD) Af Amer 124, Est GFR (MDRD) Non-Af 102, BUN/Creatinine Ratio 6.6 L, Glucose 126 H, Calcium 8.6, Phosphorus 5.7 H, Magnesium 2.0, Total Creatine Kinase 2918 H Current Medications Acetaminophen (Tylenol) 650 mg PO Q6H PRN PRN PRN Reason: Pain Score 1-10/Temp > 100.7 F Last Admin: 01/12/20 08:22 Dose: 650 mg Documented by: Acetazolamide (Diamox) 250 mg PO BID [facility] Last Admin: 01/13/20 08:50 Dose: 250 mg Documented by: Amitriptyline HCl (Elavil) 75 mg PO QHS [facility] Last Admin: 01/12/20 21:47 Dose: 75 mg Documented by: Amlodipine Besylate (Norvasc) 5 mg PO DAILY [facility] Last Admin: 01/13/20 08:51 Dose: 5 mg Documented by: Baclofen (Lioresal) 5 mg PO TID [facility] Last Admin: 01/13/20 05:08 Dose: 5 mg Documented by: Diazepam (Valium) 10 mg PO TID [facility] Last Admin: 01/13/20 05:08 Dose: 10 mg Documented by: Gabapentin (Neurontin) 400 mg PO 4X/DAYCM [facility] Last Admin: 01/13/20 08:49 Dose: 400 mg Documented by: Heparin Sodium (Porcine) (Heparin Na) 5,000 unit SC Q8 [facility] Last Admin: 01/13/20 05:10 Dose: 5,000 unit Documented by: Ibuprofen (Motrin) 400 mg PO Q6H PRN PRN PRN Reason: PAIN -01/19 Last Admin: 01/12/20 23:00 Dose: 400 mg Documented by: Lisinopril (Zestril) 10 mg PO HS [facility] Last Admin: 01/12/20 21:48 Dose: 10 mg Documented by: Ondansetron HCl (Zofran) 4 mg IV Q8H PRN PRN PRN Reason: NAUSEA/VOMITING Oxycodone HCl (Oxyir) 10 mg PO Q4H PRN PRN PRN Reason: Pain Score 1-10/10 Last Admin: 01/13/20 09:40 Dose: 10 mg Documented by: Pantoprazole Sodium (Protonix) 40 mg PO DAILY [facility] Last Admin: 01/13/20 08:51 Dose: 40 mg Documented by: Sodium Chloride () 10 - 40 ml IV UD PRN PRN Reason: SALINE FLUSH Last Admin: 01/12/20 05:48 Dose: 10 ml Documented by: Spironolactone (Aldactone) 25 mg PO DAILY [facility] Last Admin: 01/13/20 11:03 Dose: 25 mg Documented by: STROKE Vital Signs/Narrative: Vital Signs Temp Pulse Resp BP Pulse Ox 01/13/20 08:47 98.1 F 86 18 118/76 99 Medical Necessity - Tobacco Use Smoking Status: Current some day smoker Tobacco Use: Cigarettes, Vapor Assessment/Plan All Active Problems Hypokalemia (Acute) Paralysis (Acute) Seizure (Acute) 1. BL upper and lower extremity weakness presumed 2/2 hypokalemic periodic paralysis - fluids stopped. aldactone and diamox started. Continue lisinopril. Monitor overnight. PT OT states no further needs. Nephrology following. Will need close f/u at [place]. 2. Polydipsia - possibly contributing to above, however sodium is normal. Pt drinks minimum of 6x32 oz cups of water daily. Glucose 156, check A1C. Measure I/O. Nephrology consulted. UA neg. TSH normal. Renin/Aldosterone pending. -Teacher Dancing consulted. -pt does not feel his water intake is an issue because he has drank copious water his whole life. 3. Acute rhabdo - 2/2 muscle spasms. Spasms resolved. Ongoing Aching. No acute inflammation. CK trending up. Pt drinking copious water so IV fluids DCd today. 4. HTN - continue home meds. elevated BP in ER. Pt uses losartan at home. 5. Hx Seizures - continue TID valium. 6. Chronic back pain - gabapentin 7. RA - pt of Dr. Ochoa - on chronic opiates. uses IM Testosterone for opiate associated Low T. Previously on MTX, stopped due to side effects, previously on Humira stopped due to loss of insurance/too expensive. DVT ppx: heparin DC planning: PTOT. This patient was seen by Newton Bautista PA-C under the supervision of Dr. Wooten <Frankie Wooten - Last Filed: 01/13/20 12:04> Vitals/I&O's: Vital Signs Temp Pulse Resp BP Pulse Ox 36.7 C 86 18 118/76 99 01/13/20 08:47 01/13/20 08:47 01/13/20 08:47 01/13/20 08:47 01/13/20 08:47 Oxygen Delivery Method Room Air Weight: 80.5 kg Body Mass Index (BMI) 27.8 Intake and Output for Last 24 Hours 01/11/20 01/12/20 01/13/20 23:59 23:59 23:59 Intake Total 2840 / 2840 6895 / 6895 2555 / 2555 Output Total 2150 / 2150 3000 / 3000 Balance 690 / 690 3895 / 3895 2555 / 2555 General: Alert, Cooperative HEENT: Atraumatic, Normocephalic Extremities: No edema, No Calf Tenderness Skin: No rashes, No breakdown Musculoskeletal: - - Pain with palpation to bilateral thighs. Neurological: Motor Exam 5/5 strength throughout, - - When patient ambulated he would dip down when stepping with his right foot but would not fall nor did he show any unsteadiness. Laboratory Results 01/13/20 07:01: WBC 10.1, RBC 4.81, Hgb 14.5, Hct 42.7, MCV 88.8, MCH 30.1, MCHC 34.0, RDW Std Deviation 47.5 H, RDW Coeff of Todd 14.5, Plt Count 174, MPV 12.0, Immature Gran % (Auto) 3.600 H, Neut % (Auto) 56.2, Lymph % (Auto) 23.2, [place] % (Auto) 5.0, Eos % (Auto) 10.6 H, Baso % (Auto) 1.4 H, Absolute Neuts (auto) 5.7, Absolute Lymphs (auto) 2.35, Nucleated RBC % 0 01/13/20 07:01: Sodium 141, Potassium 3.5, Chloride 112 H, Carbon Dioxide 22.0, Anion Gap 7, BUN 6 L, Creatinine 0.90, Estim Creat Clear Calc 109.15, Est GFR (MDRD) Af Amer 124, Est GFR (MDRD) Non-Af 102, BUN/Creatinine Ratio 6.6 L, Glucose 126 H, Calcium 8.6, Phosphorus 5.7 H, Magnesium 2.0, Total Creatine Kinase 2918 H Current Medications Acetaminophen (Tylenol) 650 mg PO Q6H PRN PRN PRN Reason: Pain Score 1-10/Temp > 100.7 F Last Admin: 01/12/20 08:22 Dose: 650 mg Documented by: Acetazolamide (Diamox) 250 mg PO BID [facility] Last Admin: 01/13/20 08:50 Dose: 250 mg Documented by: Amitriptyline HCl (Elavil) 75 mg PO QHS [facility] Last Admin: 01/12/20 21:47 Dose: 75 mg Documented by: Amlodipine Besylate (Norvasc) 5 mg PO DAILY [facility] Last Admin: 01/13/20 08:51 Dose: 5 mg Documented by: Baclofen (Lioresal) 5 mg PO TID [facility] Last Admin: 01/13/20 05:08 Dose: 5 mg Documented by: Diazepam (Valium) 10 mg PO TID [facility] Last Admin: 01/13/20 05:08 Dose: 10 mg Documented by: [facility] Last Admin: 01/13/20 08:49 Dose: 400 mg Documented by: Heparin Sodium (Porcine) (Heparin Na) 5,000 unit SC Q8 [facility] Last Admin: 01/13/20 05:10 Dose: 5,000 unit Documented by: Ibuprofen (Motrin) 400 mg PO Q6H PRN PRN PRN Reason: PAIN 1-01/19 Last Admin: 01/12/20 23:00 Dose: 400 mg Documented by: Lisinopril (Zestril) 10 mg PO [facility] Last Admin: 01/12/20 21:48 Dose: 10 mg Documented by: Ondansetron HCl (Zofran) 4 mg IV Q8H PRN PRN PRN Reason: NAUSEA/VOMITING Oxycodone HCl (Oxyir) 10 mg PO Q4H PRN PRN PRN Reason: Pain Score 1-10 Last Admin: 01/13/20 09:40 Dose: 10 mg Documented by: Pantoprazole Sodium (Protonix) 40 mg PO DAILY [facility] Last Admin: 01/13/20 08:51 Dose: 40 mg Documented by: Sodium Chloride () 10 - 40 ml IV UD PRN PRN Reason: SALINE FLUSH Last Admin: 01/12/20 05:48 Dose: 10 ml Documented by: Spironolactone (Aldactone) 25 mg PO DAILY [facility] Last Admin: 01/13/20 11:03 Dose: 25 mg Documented by: STROKE Vital Signs/Narrative: Vital Signs Temp Pulse Resp BP Pulse Ox 01/13/20 08:47 36.7 C 86 18 118/76 99 Assessment/Plan Patient seen and examined independently. Data reviewed. I agree with the above note by the physician patent legal assistant. 1. Suspected hypokalemic periodic paralysis: Discussed with the patient. Patient started on CIWA Sulamyd and will add Spironolactone. Advised patient about avoiding high carbohydrate meals and will have nutrition further see him. Advised also restricting his fluid intake as well to about 2 to 3 L/day. We will once again will have nutrition come and reinforce this. 2. Weakness: Unclear if actually true weekend weakness versus some abolishment of symptoms. Told patient we will monitor him overnight and if he still having weakness may need to consider EMG nerve conduction study. 3. Rhabdomyolysis: Likely secondary to muscle spasms. Monitor. Greater than 35 minutes of which greater than 50% of time was discussing with this patient about the hypokalemic periodic paralysis, medications that are used with that but also dietary recommendations. Also discussed with the patient about his use of testosterone. Advised patient of the risk of venous thromboembolic disease. I initially mistakenly told the patient he was put on the due to impotence which he refuted but only to say later that his doctor was putting him on testosterone because of impotence. I did tell the patient that if it is likely related with the opiates plus the marijuana products that he is using. He states that he uses edible marijuana on rare occasion and states that he has been using edible marijuana since he was 15. Not sure about the accuracy of that being that it relatively new product at least that can be more easily obtained. Advised the patient to discontinue the marijuana but also cut back on the opiates. Patient was asked about what he can be done about his pain is not to be on opiates. I recommended evaluation with a another director of product development. He stated that he has been to the [facility] and stated that they did not listen to him. Patient stated that he was not impressed with a director of product development that he saw in town saying that she was dozing off per his his history. Recommended second evaluation and opinion with another teller as outpatient. Inpatient E&M: [address] [facility] L[facility]
[2020-01-13] MEDS: Calcium Carbonate 500 MG Tablet PO (16:09)
[2020-01-13] MEDS: Acetaminophen 325 MG Tablet 650 MG PO (17:45)
[2020-01-13] MEDS: Amitriptyline 25 MG Tablet 75 MG PO (21:11)
[2020-01-13] MEDS: Lisinopril 10 MG Tablet PO (21:12)
[2020-01-14 03:03] VITALS: PULSE 93
[2020-01-14 03:28] VITALS: BP 115/74; PULSE 87; RESP 11; TEMP 36.3; O2SAT 96
--- NOTE | 2020-01-14 04:00 | NURSING ---
At approximately 0330 this am, this oxidation engineer was called into patient room d/t patient being unable to rouse from sleep. Pt was not responsive to name, touch or sternal rub. Notably, a vape pen was lying on patients lap. Continued efforts were made to wake patient and vitals were taken and were stable. Patient slowly awoke and was very lethargic. Patient eventually became fully awake and was verbally disgruntled with being awoken in what he stated was a bullshit way to wake someone up. This RN and primary RN Natacha attempted to communicate the concern with patient lethargy as well as question patient about vape pen. Pt denied any other vape pen in his room as well as denied that his girlfriend gave it to him on her way out when the previous 2 confiscated pens were given to her to take home. Vape pen was placed in biohazard bag and locked in pt med drawer. This RN was called back into patient room by irate patient who continued to verbalize dismay over being woken up aggresively and felt that he was not treated well, i.e., being lectured on his vape pen and having been sternal rubbed. This RN listened to pt complaint and provided empathy for pt medical challenges and situation and explained the concern both myself and his primary RN had for his safety. Continued efforts were made to explain the seriousness of the situation when a patient is not arousable. Pt verbalized understanding and this RN offered continued support to pt as needed during his stay.
[2020-01-14] MEDS: oxyCODONE 5 MG Tablet 10 MG PO ×2 (04:41→09:21)
[2020-01-14] MEDS: Heparin Injection (Vial) 5,000 UNIT/ML VIAL 5000 UNIT SC (06:46)
[2020-01-14] MEDS: Baclofen 10 MG Tablet 5 MG PO (06:46)
[2020-01-14 07:00] VITALS: PULSE 84
--- NOTE | 2020-01-14 07:25 | NURSING ---
Around 03:30, this RN to pt room to complete focused assessment and VS. This RN attempted to awaken pt. Pt was very lethargic and hardly responding to verbal stimuli. This RN also noted vape pen in pt lap. This RN called full charge bookkeeper to room as pt was not arousing. peer specialist (Fabian Bustos RN) to pt room. Eventually pt was able to be awakened. This RN and full charge bookkeeper had extensive conversation with pt about how he has been instructed multiple times that using a vape pen is against hospital policy and is not acceptable. Pt confrontational stating staff was treating him like he was smoking crack. This RN completed assessment and left pt room. A short time later, pt was up in hallway requesting to see the head nurse. Pt verbalized he didn't feel it was acceptable how staff woke him up. This RN and full charge bookkeeper into room to further speak with patient. Explained to patient that it was attempted to wake him gently and staff became concerned when he would not wake up. Extensive conversation with patient that staff is here to help him and that he needs to comply with hospital policy.
--- NOTE | 2020-01-14 07:36 | NURSING ---
Pt states this AM that he is tired of being in pain and sometimes he gets tired of life.
[2020-01-14 07:45] LABS: CPK Total, Creatine Kinase 1621 U/L (39-308)
[2020-01-14 08:14] LABS: Anion Gap 8 (5-15); BUN 15 mg/dL (7-18); BUN/Creat Ratio 12.6 RATIO (10-20); Calcium,Total 9.2 mg/dL (8.5-10.1); Chloride 107 mmol/L (98-107); Creatinine, Serum 1.19 mg/dL (0.70-1.30); EST Glomerular Filtration Rate 75 mL/min (>60); Est Glom Filt Rate - Afr Amer 90 mL/min (>60); Estimated Creatinine Clearance 82.55 ml/min; Glucose 97 mg/dL (74-106); Magnesium 2.1 mg/dL (1.6-2.6); Phosphorus 6.7 mg/dL (2.5-4.9); Potassium 3.8 mmol/L (3.5-5.1); Sodium Level 137 mmol/L (136-145)
[2020-01-14 09:13] VITALS: BP 114/74; PULSE 88; RESP 18; TEMP 36.6; O2SAT 98
[2020-01-14] MEDS: Gabapentin 400 MG Capsule PO (09:19)
[2020-01-14] MEDS: Spironolactone 25 MG Tablet PO (09:19)
[2020-01-14] MEDS: amLODIPine 5 MG Tablet PO (09:19)
[2020-01-14] MEDS: Pantoprazole Sodium 40 MG Tablet PO (09:19)
[2020-01-14] MEDS: AcetaZOLAMIDE 250 MG Tablet PO (09:19)
--- NOTE | 2020-01-14 10:55 | DCINST_ITS ---
- Discharge Diagnoses Current Active Problems: Current Active and Chronic Problems Hypokalemia (Acute) You will use the following diet at home:: Cardiac Your food should be the consistency of: Regular Your liquids should be the consistency of: Regular/Thin Discharge Activity: Return to Normal Activity Allergies/Adverse Reactions: Allergies Penicillins Allergy (Verified 01/11/20 13:16) Rash Medications to take at Discharge Amlodipine [Norvasc] 5 mg PO DAILY 04/16/16 Oxycodone [Oxyir] 10 mg PO Q4H PRN PRN 11/21/16 Diazepam 10 mg PO TID 10/24/18 Testosterone Cypionate [Depo-Testosterone] 200 mg IM .COMPLEX 10/24/18 Amitriptyline HCl 75 mg PO QHS 01/11/20 Gabapentin [Neurontin] 400 mg PO 4X/DAY 01/11/20 Lisinopril [Zestril] 10 mg PO 01/11/20 Pantoprazole Sodium [Protonix] 40 mg PO DAILY 01/11/20 Ibuprofen [Motrin] 400 mg PO Q6H PRN PRN tablet 01/14/20 Spironolactone [Aldactone] 25 mg PO DAILY #30 tab 01/14/20 The following prescriptions were given: Spironolactone [Aldactone] 25 mg PO DAILY #30 tab Transmission Status: Pending to [facility]/pharmacy #[id number] Primary Care Physician: Gil Hu [Primary Care Provider] - Please follow up with your Primary Care Physician in: 1-2 weeks Test Results: Test results from this visit will be discussed in further detail at your follow- up appointment, if applicable. Please Follow Up With: Lotus Landa MD When: 2 weeks Proposed Discharge Date: 01/14/20
--- NOTE | 2020-01-14 12:32 | PCM.DC.SUM ---
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 Acute rhabdomyolysis secondary to muscle spasms, secondary to electrolyte abnormalities Polydipsia, unclear etiology - Secondary Discharge Diagnosis Chronic Problems: Chronic Problems Seronegative rheumatoid arthritis (Chronic) Hypertension (Chronic) Hospital Course and Treatment Consults: SOC - tele neuro Operations: None Procedures: None Summary of Care Provided: Hospital course: The patient is a 34 year old M with past medical history of seizure disorder, rheumatoid arthritis, hypertension, nicotine abuse, marijuana abuse, chronic opiate use, chronic benzodiazepine use, who presented to the emergency room with complaints of weakness in his upper and lower extremities. The day of presentation he woke up and had muscle spasms in his thigh, went back to bed, woke up later and had severe weakness in both arms and both legs. He was unable to walk, fell out of bed and crawled across the floor. Was brought to the ER was found to be severely hypokalemic with a potassium of 1.9, moderately low magnesium at 1.6, with elevated creatinine kinase at 597. Later, phosphorous was found to be significantly low. Telemetry neurology was consulted and recommended admission to a telemetry or stroke unit. He was felt to have bilateral upper and lower extremity weakness due to severe hypokalemia. He has had issues with hypokalemia in the past for unclear reasons. Patient was taking a self prescribed amount of potassium supplement [id number] at home, was also taking lisinopril regularly at home. Despite this, his potassium was still low. He also admitted to significant polydipsia drinking at least 6 L of fluid daily, often times more. Electrolytes were aggressively replaced including potassium, magnesium, phosphorus. His sodium and calcium were normal. The patient's weakness improved with correction of his electrolytes. Nephrology was consulted and felt this was likely hypokalemic periodic paralysis as well. A renal and and aldosterone level were ordered and are pending at this time. He was given a trial of Diamox, and started on spironolactone. IV fluids were discontinued and he was monitored: potassium levels remained stable. Diamox was discontinued, he will remain on spironolactone and lisinopril. A dietitian was consulted to address his polydipsia-the patient noted that he had been drinking water in those quantities his entire life and did not feel that it was an issue despite our discussion. Given his hypokalemia and polydipsia is recommended that he have a low carb diet with a goal of 2.5 L of fluid intake daily. The patient worked with PT and OT and was able to get up and ambulate. He requested a cane for assistance which was provided. PT and OT did not feel that he demonstrated need for any additional therapy at this time. He was discharged home in stable condition. He will need close follow-up with nephrology and with his PCP. This patient was seen by Newton Bautista PA-C under the supervision of Doctor Wooten. [] Patient Problems: Active and Suspected Problems Hypokalemia (Acute) - Physical Exam Vitals/I&O's: Vital Signs Temp Pulse Resp BP Pulse Ox 97.9 F 88 18 114/74 98 01/14/20 09:13 01/14/20 09:13 01/14/20 09:13 01/14/20 09:13 01/14/20 09:13 Oxygen Delivery Method Room Air Weight: 173 lb 4.8 oz Body Mass Index (BMI) 27.8 Intake and Output for Last 24 Hours 01/12/20 01/13/20 01/14/20 23:59 23:59 23:59 Intake Total 6895 / 6895 4835 / 4835 980 / 980 Output Total 3000 / 3000 Balance 3895 / 3895 4835 / 4835 980 / 980 General: Alert, Oriented x3, Cooperative HEENT: Atraumatic, PERRLA, EOMI, Normocephalic Neck: Supple, No JVD, Negative Carotid Bruits Lungs: Clear to auscultation, Normal air movement Cardiovascular: Regular rate, No murmurs Abdomen: Bowel Sounds Present, Soft, Non Tender Extremities: No edema, Capillary Refill Less than 3 Seconds Skin: No rashes, No breakdown Musculoskeletal: No Tenderness to Palpation of Joints or Extremities Neurological: Cranial nerves II-XII grossly intact Psych/Mental Status: Normal Affect, Appropriate, Alert and oriented to time, place, person, mood and affect Laboratory Results 01/14/20 05:41: Sodium 137, Potassium 3.8, Chloride 107, Carbon Dioxide 22.0, Anion Gap 8, BUN 15, Creatinine 1.19, Estim Creat Clear Calc 82.55, Est GFR (MDRD) Af Amer 90, Est GFR (MDRD) Non-Af 75, BUN/Creatinine Ratio 12.6, Glucose 97, Calcium 9.2, Phosphorus 6.7 H, Magnesium 2.1 01/14/20 05:41: Total Creatine Kinase 1621 H Current Medications Acetaminophen (Tylenol) 650 mg PO Q6H PRN PRN PRN Reason: Pain Score 1-10/Temp > 100.7 F Last Admin: 01/13/20 17:45 Dose: 650 mg Documented by: Acetazolamide (Diamox) 250 mg PO BID [facility] Last Admin: 01/14/20 09:19 Dose: 250 mg Documented by: Amitriptyline HCl (Elavil) 75 mg PO QHS [facility] Last Admin: 01/13/20 21:11 Dose: 75 mg Documented by: Amlodipine Besylate (Norvasc) 5 mg PO DAILY [facility] Last Admin: 01/14/20 09:19 Dose: 5 mg Documented by: Baclofen (Lioresal) 5 mg PO TID [facility] Last Admin: 01/14/20 06:46 Dose: 5 mg Documented by: Calcium Carbonate (Tums) 500 mg PO Q6H PRN PRN PRN Reason: HEARTBURN Last Admin: 01/13/20 16:09 Dose: 500 mg Documented by: Diazepam (Valium) 10 mg PO TID [facility] Last Admin: 01/14/20 06:46 Dose: Not Given Documented by: Gabapentin (Neurontin) 400 mg PO 4X/DAYCM [facility] Last Admin: 01/14/20 09:19 Dose: 400 mg Documented by: Heparin Sodium (Porcine) (Heparin Na) 5,000 unit SC Q8 [facility] Last Admin: 01/14/20 06:46 Dose: 5,000 unit Documented by: Ibuprofen (Motrin) 400 mg PO Q6H PRN PRN PRN Reason: PAIN 1-01/19 Last Admin: 01/12/20 23:00 Dose: 400 mg Documented by: Lisinopril (Zestril) 10 mg PO HS [facility] Last Admin: 01/13/20 21:12 Dose: 10 mg Documented by: Nicotine (Nicoderm Cq ([facility])) 14 mg TRANSDERM. DAILY [facility] Last Admin: 01/14/20 04:41 Dose: 14 mg Documented by: Ondansetron HCl (Zofran) 4 mg IV Q8H PRN PRN PRN Reason: NAUSEA/VOMITING Oxycodone HCl (Oxyir) 10 mg PO Q4H PRN PRN PRN Reason: Pain Score 1-10/10 Last Admin: 01/14/20 09:21 Dose: 10 mg Documented by: Pantoprazole Sodium (Protonix) 40 mg PO DAILY [facility] Last Admin: 01/14/20 09:19 Dose: 40 mg Documented by: Sodium Chloride () 10 - 40 ml IV UD PRN PRN Reason: SALINE FLUSH Last Admin: 01/12/20 05:48 Dose: 10 ml Documented by: Spironolactone (Aldactone) 25 mg PO DAILY [facility] Last Admin: 01/14/20 09:19 Dose: 25 mg Documented by: Discharge Diet: - - carbohydrate goal is 50% of daily calories, fluid intake goal is 2.5L fluid daily. Discharge Activity: Return to Normal Activity Home Medications: Medications to take at Discharge Amlodipine [Norvasc] 5 mg PO DAILY 04/16/16 Oxycodone [Oxyir] 10 mg PO Q4H PRN PRN 11/21/16 Diazepam 10 mg PO TID 10/24/18 Testosterone Cypionate [Depo-Testosterone] 200 mg IM .COMPLEX 10/24/18 Amitriptyline HCl 75 mg PO QHS 01/11/20 Gabapentin [Neurontin] 400 mg PO 4X/DAY 01/11/20 Lisinopril [Zestril] 10 mg PO 01/11/20 Pantoprazole Sodium [Protonix] 40 mg PO DAILY 01/11/20 Ibuprofen [Motrin] 400 mg PO Q6H PRN PRN tab 01/14/20 Spironolactone [Aldactone] 25 mg PO DAILY #30 tab 01/14/20 Following Prescriptions Were Given to Patient: Spironolactone [Aldactone] 25 mg PO DAILY #30 tab Transmission Status: Received by [id number] Primary Care Physician: Gil Hu [Primary Care Provider] - Please follow up with your Primary Care Physician in: 1-2 weeks Please Follow Up With: Lotus Landa MD When: 2 weeks Disposition: Home Minutes spent on discharge:: 35 Medical Necessity - Tobacco Use Smoking Status: Current some day smoker Tobacco Use: Cigarettes, Vapor Meaningful Use Info Meaningful Use Diagnoses (Choose all that apply): None applicable <Fraknie Wooten - Last Filed: 01/14/20 13:24> Discharge Date and Diagnosis - Primary Discharge Diagnosis Acute Problems: Active Problems Hypokalemia (Acute) - Secondary Discharge Diagnosis Chronic Problems: Chronic Problems Seronegative rheumatoid arthritis (Chronic) Hypertension (Chronic) Hospital Course and Treatment Operations: None Procedures: None Summary of Care Provided: Patient seen and examined independently. Data reviewed. I agree with the above note by the physician exceptional children teacher assistant. The patient is a 34 year old M presents with profound weakness and spasms. Patient's potassium, magnesium and phosphorus were low and his CPK were elevated. Electrolytes were replaced and improved. Nephrology was consulted and was concerned that the patient may have hypokalemic periodic paralysis. Patient was given instructions about avoiding high carbohydrate diet as well as cutting back on the fluids. Patient drinking roughly 6 L of fluid per day and advised to drink 2 to 3 L of fluid per day. Patient states that his mouth is dry which is why he drinks much fluid. Recommended Biotene to take to help with his dry mouth. Recommend patient follow-up with nephrology as outpatient and have routine lab work in regards to his electrolytes. Patient still continued to complain of weakness and was using a cane. On exam, his strength was assessed and was inconsistent. Seem like he was holding back Particularly weakness of his left lower extremity. It is unclear if there is any kind of ulterior motive the patient may be looking to try to get onto disability due to his rheumatoid arthritis. Did address with patient concerns about testosterone and the risk of VTE associated with that. I mistakenly told him that he was put on testosterone due to impotence which he immediately denied then later stated that his primary care doctor started him on it due to impotence. I spoke with the patient about opiates as well as cannabinoids leading to impotence. Patient stated that he rarely uses cannabinoids. Patient's history and using cannabinoids was variable stating that he never uses him though structure was positive but also contradicting himself previously saying that he took a couple days before. States that he only uses edibles. Patient also has a seizure disorder. Patient had a seizure 2017 which was felt to be related with tramadol. Stated that few months back he had a seizure while at work and was having mild clonic jerking and patient was completely out. Patient never sought attention for that after that seizure. Advised patient follow-up with neurology for further evaluation and recommendations regards to seizures. Patient was no longer taking tramadol at that time. Patient states that he is on diazepam for the seizures as well as spasms. I told him that he is getting these talk to his primary care doctor as he is actively using cannabinoids. I did not discourage him from using cannabinoids but I told the patient that if hours his prescribing physician in regards to the gabapentin, diazepam and oxycodone I would not prescribe him any of those medications with him actively taking cannabinoids. Patient has casual attitude in regards to using it and did not really seem to register any kind of concern with using on these other agents. I would defer to the patient's primary care provider in regards to if he would continue prescribing these medications or if the patient is going to discontinue cannabinoids altogether. I did encourage de-escalation of all these medications, however. Additionally, patient has diagnosis of rheumatoid arthritis. He endorses that he was unhappy with his of the silver steward is on [facility]. I advised second opinion at outside the rheumatology office and stated that he could follow-up at the [facility] in [place] or some other silver steward for second opinion. Patient initially said he saw somatic [facility] but upon further discussion and research, patient had seen Dr. Vineet Dejesus at [facility], who is an orthopedic surgeon. He has not seen any of the silver steward at the [facility]. [] - Physical Exam Vitals/I&O's: Vital Signs Temp Pulse Resp BP Pulse Ox 36.6 C 88 18 114/74 98 01/14/20 09:13 01/14/20 09:13 01/14/20 09:13 01/14/20 09:13 01/14/20 09:13 Oxygen Delivery Method Room Air Weight: 78.608 kg Body Mass Index (BMI) 27.8 Intake and Output for Last 24 Hours 01/12/20 01/13/20 01/14/20 23:59 23:59 23:59 Intake Total 6895 / 6895 4835 / 4835 980 / 980 Output Total 3000 / 3000 Balance 3895 / 3895 4835 / 4835 980 / 980 General: Alert, Cooperative HEENT: Atraumatic, Normocephalic Extremities: No edema, Capillary Refill Less than 3 Seconds Skin: No rashes, No breakdown Neurological: - - Muscle strength 5-5 in upper extremities and 5-5 in the right lower extremity 4 out of 5 the left lower extremity, however there was some giveaway weakness. Psych/Mental Status: Normal Affect, Appropriate Laboratory Results 01/14/20 05:41: Sodium 137, Potassium 3.8, Chloride 107, Carbon Dioxide 22.0, Anion Gap 8, BUN 15, Creatinine 1.19, Estim Creat Clear Calc 82.55, Est GFR (MDRD) Af Amer 90, Est GFR (MDRD) Non-Af 75, BUN/Creatinine Ratio 12.6, Glucose 97, Calcium 9.2, Phosphorus 6.7 H, Magnesium 2.1 01/14/20 05:41: Total Creatine Kinase 1621 H Current Medications Acetaminophen (Tylenol) 650 mg PO Q6H PRN PRN PRN Reason: Pain Score 1-10/Temp > 100.7 F Last Admin: 01/13/20 17:45 Dose: 650 mg Documented by: Acetazolamide (Diamox) 250 mg PO BID [facility] Last Admin: 01/14/20 09:19 Dose: 250 mg Documented by: Amitriptyline HCl (Elavil) 75 mg PO QHS [facility] Last Admin: 01/13/20 21:11 Dose: 75 mg Documented by: Amlodipine Besylate (Norvasc) 5 mg PO DAILY [facility] Last Admin: 01/14/20 09:19 Dose: 5 mg Documented by: Baclofen (Lioresal) 5 mg PO TID [facility] Last Admin: 01/14/20 06:46 Dose: 5 mg Documented by: Calcium Carbonate (Tums) 500 mg PO Q6H PRN PRN PRN Reason: HEARTBURN Last Admin: 01/13/20 16:09 Dose: 500 mg Documented by: Diazepam (Valium) 10 mg PO TID [facility] Last Admin: 01/14/20 06:46 Dose: Not Given Documented by: Gabapentin (Neurontin) 400 mg PO 4X/DAYCM [facility] Last Admin: 01/14/20 09:19 Dose: 400 mg Documented by: Heparin Sodium (Porcine) (Heparin Na) 5,000 unit SC Q8 [facility] Last Admin: 01/14/20 06:46 Dose: 5,000 unit Documented by: Ibuprofen (Motrin) 400 mg PO Q6H PRN PRN PRN Reason: PAIN 1-01/19 Last Admin: 01/12/20 23:00 Dose: 400 mg Documented by: Lisinopril (Zestril) 10 mg PO HS [facility] Last Admin: 01/13/20 21:12 Dose: 10 mg Documented by: Nicotine (Nicoderm Cq ([facility])) 14 mg TRANSDERM. DAILY [facility] Last Admin: 01/14/20 04:41 Dose: 14 mg Documented by: Ondansetron HCl (Zofran) 4 mg IV Q8H PRN PRN PRN Reason: NAUSEA/VOMITING Oxycodone HCl (Oxyir) 10 mg PO Q4H PRN PRN PRN Reason: Pain Score 1-01/19 Last Admin: 01/14/20 09:21 Dose: 10 mg Documented by: Pantoprazole Sodium (Protonix) 40 mg PO DAILY [facility] Last Admin: 01/14/20 09:19 Dose: 40 mg Documented by: Sodium Chloride () 10 - 40 ml IV UD PRN PRN Reason: SALINE FLUSH Last Admin: 01/12/20 05:48 Dose: 10 ml Documented by: Spironolactone (Aldactone) 25 mg PO DAILY [facility] Last Admin: 01/14/20 09:19 Dose: 25 mg Documented by: Discharge Diet: - Discharge Activity: Return to Normal Activity Disposition: Home Minutes spent on discharge:: 35 Meaningful Use Info Meaningful Use Diagnoses (Choose all that apply): None applicable Inpatient E&M: 67786 Disch Hosp
--- NOTE | 2020-01-15 10:40 | CASEMGMT ---
CHET NICHOLS Discharge Follow-up Phone Call: RICKY: Crissy Strata: 3 Call Date: 01/15/2020 Discharge Date: 01/14/2020 Time of Call: 1040 Admitting Diagnosis: Hypokalemia Discharge follow-up call placed to patient. Patient answered but call woke him up. Pt not able to answer questions at this time but states he is ok. Pt agreeable to a return call later today when he is more awake. Germain Zeng RN CM
[2020-06-27 11:37] LABS: Aldosterone, Serum 2.5 ng/dL (0.0-30.0)
[2020-06-27 11:38] LABS: Renin, Plasma 8.583 ng/mL/hr (0.167-5.380)
== END 2020-01-14 13:40 | disposition home or self-care (01) | DRG 92 ==
LOC: ED 16:56 → PCU 17:00
PROVIDERS: Physician Assistant; Admitting Provider Internal Medicine; Emergency Provider Emergency Medicine; PCP Family Medicine
DX: G72.3 Periodic paralysis (principal); G40.509 Epileptic seizures related to external causes, not intractable, without status epilepticus; R63.1 Polydipsia; E83.42 Hypomagnesemia; M06.00 Rheumatoid arthritis without rheumatoid factor, unspecified site; M54.9 Dorsalgia, unspecified; G89.29 Other chronic pain; F17.210 Nicotine dependence, cigarettes, uncomplicated; Z79.899 Other long term (current) drug therapy; E83.39 Other disorders of phosphorus metabolism
CPT/HCPCS: 36415; 80048; 80053; 80307; 81001; 82088; 82550; 82570; 83036; 83735; 84100; 84133; 84244; 84443; 85025; 85610; 85652; 85730; 86141; 93005; 97161; 97166; 97802; 99251; 99285; J7030; J7040; J7050; A4216; G0463; J3475

== ENCOUNTER → 2020-02-06 09:11 | Outpatient (CLI) | payer SELFPAY ==
[2020-01-11 17:58] VITALS: BMI 27.8
[2020-02-06 14:52] LABS: Anion Gap 6 (5-15); BUN 13 mg/dL (7-18); BUN/Creat Ratio 11.5 RATIO (10-20); CPK Total, Creatine Kinase 125 U/L (39-308); CRP < 2.90 mg/L (0.0-3.0); Calcium,Total 9.1 mg/dL (8.5-10.1); Chloride 101 mmol/L (98-107); Creatinine, Serum 1.13 mg/dL (0.70-1.30); EST Glomerular Filtration Rate 79 mL/min (>60); Est Glom Filt Rate - Afr Amer 96 mL/min (>60); Glucose 89 mg/dL (74-106); Potassium 4.4 mmol/L (3.5-5.1); Sodium Level 136 mmol/L (136-145)
== END ==
LOC: BFHLAB 09:12
PROVIDERS: PCP Family Medicine; Visit Provider Family Medicine
DX: G72.3 Periodic paralysis (principal); M62.82 Rhabdomyolysis
CPT/HCPCS: 36415; 80048; 82550; 86140

== ENCOUNTER → 2020-08-13 15:43 | Outpatient (CLI) | payer SELFPAY ==
[2020-01-11 17:58] VITALS: BMI 27.8
[2020-08-13 18:16] LABS: CPK Total, Creatine Kinase 156 U/L (39-308)
== END ==
PROVIDERS: PCP Family Medicine; Referring Provider Family Medicine; Visit Provider Family Medicine
DX: M79.10 Myalgia, unspecified site (principal)
CPT/HCPCS: 36415; 82550

== ENCOUNTER 2020-09-25 13:00 | Emergency (ER) | payer OTHER, SELFPAY ==
[2020-01-11 17:58] VITALS: BMI 27.8
[2020-09-25 13:01] VITALS: BP 142/101; PULSE 104; RESP 16; TEMP 36.7; O2SAT 98; BMI 28.8
--- NOTE | 2020-09-25 13:26 | EDS_ITS ---
HPI HPI - URI History of Present Illness Chief Complaint: Ear Problem Informant: patient Onset/Context/Timing Onset: Today Context: Gradual Onset Timing: Intermittent Current Severity: Mild Maximum Severity: Mild Associated Symptoms Associated Symptoms: Negative for Nasal Congestion, Headache, Sinus Pressure, Myalgias, Nausea, Vomiting, Diarrhea, Shortness of Breath, Chest Pain, Nonproductive cough, Hemoptysis and Productive Cough Narrative Narrative: 35-year-old male history of rheumatoid arthritis. States he was in the shower today was feeling fine and he noticed blood on his hand and he realized it was coming from his left ear. He denies any trauma. States earlier today yesterday several days not had any ear pain or trouble hearing. He has never had a ruptured eardrum that he remembers or had any prior ear surgery. He denies any sore throat or fever. Prior similar symptoms: No Recent Illness/Hospitalization: No ROS ROS ED ROS Narrative Patient denies any recent illness. He denies any fever, ear pain, ear trauma or sore throat. Review of Systems ROS Unobtainable: Denies due to encephalopathy Constitutional Constitutional ED: Denies chills or fever(s) Eyes Eyes: Denies change in vision ENT ENT ED: Denies ear pain, rhinorrhea or sore throat Cardiovascular Cardiovascular: Denies chest pain Respiratory/Chest Respiratory/Chest: Denies cough or dyspnea Gastrointestinal Gastrointestinal: Denies abdominal pain, constipation, diarrhea, nausea or vomiting Genitourinary Genitourinary ED: Denies dysuria Musculoskeletal Musculoskeletal: Denies myalgias Integumentary Denies rash Neurologic Neurologic: Reports headache(s) Psychiatric Psychiatric: Denies depression Endocrine Endocrinology: Denies polyuria Hematologic/Lymphatic Hematologic/Lymphatic: Denies easy bruising Allergic/Immunologic Allergic/Immunologic ED: Denies urticaria [facility] Medical History Anxiety HTN (hypertension) Rheumatoid aortitis Seizure Home Medications amlodipine 5 mg PO DAILY 04/16/16 [History Last Taken 01/10/20] oxycodone 10 mg PO Q4H PRN PRN 11/21/16 [History Last Taken 01/10/20] diazepam 10 mg PO TID 10/24/18 [History Last Taken 01/10/20] testosterone cypionate 200 mg IM .COMPLEX 07/15/19 [History Last Taken 01/10/20] amitriptyline 75 mg PO QHS 01/11/20 [History Last Taken 01/10/20] gabapentin 400 mg PO 4X/DAY 01/11/20 [History Last Taken 01/10/20] lisinopril 10 mg PO 01/11/20 [History Last Taken 01/10/20] pantoprazole 40 mg PO DAILY 01/11/20 [History Last Taken 01/10/20] ibuprofen 400 mg PO Q6H PRN PRN tab 01/14/20 [Rx Last Taken Unknown] spironolactone 25 mg PO DAILY #30 tab 01/14/20 [Rx Last Taken Unknown] Allergy/AdvReac Type Severity Reaction Status Date / Time Penicillins Allergy Rash Verified 01/11/20 13:16 Social History Smoking Status: Current some day smoker tobacco type: e-cigarettes EXAM Physical Exam Narrative Exam Narrative: Well-appearing young male no acute distress. Vital signs stable afebrile. HEENT exam right ear and canal normal right TM normal. Posterior pharynx normal. Left ear canal has blood. Is bright red blood. Currently there is no active bleeding. I cannot see the distal end of the ear canal or the eardrum. Due to being obscured by the blood. Posterior pharynx is normal. Neck nontender no lymphadenopathy. Lungs are clear. Heart regular rate and rhythm. Otherwise exam normal. Const Vital Signs: 09/25/20 13:01 Temperature 98.1 F Temperature Source Temporal Pulse Rate 104 H Respiratory Rate 16 Blood Pressure 142/101 H Blood Pressure Mean 114 Pulse Ox 98 Oxygen Delivery Method Room Air Positive well nourished and well developed General Appearance ED: well developed HEENT Reports moist mucous membranes normocephalic and atraumatic Face and Sinus: Negative for sinus tenderness or facial tenderness External Ear: external ears normal, mastoids normal and no preauricular adenopathy External Auditory Canal: EAC's abnormal left Tympanic Membrane ED: Yes other Left ear canal obscured by blood. TM cannot be visualized. Eyes PERRL and EOMs intact bilaterally Neck no lymphadenopathy, supple, no meningeal signs and no JVD General: Negative for anterior neck swelling or lymphadenopathy Resp normal respiratory effort and clear to auscultation bilaterally Cardio S1 normal heart sound, S2 normal heart sound and no murmurs Rate: regular rate Rhythm: regular rhythm GI non-tender, non-distended and no masses Auscultation: normoactive bowel sounds Palpation: soft Back/Spine no CVA tenderness and normal ROM Extremity normal to inspection and full ROM Neuro oriented x3 Sensorium / Orientation: alert, oriented to person, oriented to place and oriented to time Psych mental status grossly normal Mood & Affect: anxious Skin Lesions: no lesions Rashes: no rashes MDM MDM MDM Narrative Medical decision making narrative: Patient is blood in his left ear canal. He may or may not have a perforated left eardrum. He has had no URI symptoms prior to the day. He has had no earache nor sore throat. There is no reported trauma. He denies placing anything in his ear canal. Discharge Plan Triage Chief Complaint: Ear Problem ED Provider: Leonides Danielle Dx/Rx/DC Orders Clinical Impression: Perforated left tympanic membrane on examination Instructions: ED Ruptured Eardrum, Traumatic Prescriptions: No Action amlodipine 5 MG tablet 5 mg PO DAILY RF: 0 oxycodone 5 MG tablet 10 mg PO Q4H PRN PRN (Reason: Pain) RF: 0 diazepam 10 MG tablet 10 mg PO TID RF: 0 testosterone cypionate 200 MG/ML oil 200 mg IM .COMPLEX RF: 0 amitriptyline 75 MG tablet 75 mg PO QHS RF: 0 gabapentin 400 MG capsule 400 mg PO 4X/DAY RF: 0 pantoprazole 40 MG tablet 40 mg PO DAILY RF: 0 lisinopril 10 MG tablet 10 mg PO RF: 0 spironolactone 25 MG tablet 25 mg PO DAILY Qty: 30 RF: 0 ibuprofen 400 MG tablet 400 mg PO Q6H PRN PRN (Reason: PAIN 1-01/19) RF: 0 Primary Care Provider: Gil Hu Referrals: Seven Wellington MD [STAFF PHYSICIAN] - As soon as possible Gil Hu [Primary Care Provider] - Activity Restrictions/Additional Instructions: Call Dr. Seven Wellington's office today to be seen as well as referral appointment. Concerning anytime there is blood in your ear canal that you may have perforated your left eardrum. I cannot physically see your eardrum today so I do not know if you perforated or not. Keep the area dry and clean. Anytime you get a shower or around water try to keep the water out of the ear. Use a dry cotton ball and then change after the shower. Do not swim or submerge her head underwater at this time until you are seen in follow-up evaluation. Disposition Disposition: Home, self care
--- NOTE | 2020-09-25 13:45 | ED.RN ---
PT LEFT PRIOR TO RECEIVING DC PAPERWORK
== END 2020-09-25 13:46 | disposition home or self-care (01) ==
LOC: ED 13:42
PROVIDERS: Emergency Provider Emergency Medicine; PCP Family Medicine
DX: H72.92 Unspecified perforation of tympanic membrane, left ear (principal); F17.200 Nicotine dependence, unspecified, uncomplicated
CPT/HCPCS: 99283

== ENCOUNTER 2021-04-15 10:20 | Emergency (ER) | payer OTHER, SELFPAY ==
[2021-04-15 10:21] VITALS: BP 153/101; PULSE 110; RESP 18; TEMP 36; O2SAT 99; BMI 25.9
--- NOTE | 2021-04-15 11:11 | EX.ED.DYSGE1 ---
HPI History of Present Illness Chief Complaint: Wound Informant: patient Onset/Context/Timing Onset: Yesterday Current Severity: Mild Maximum Severity: Moderate Worsened by: using tongue Relieved by: resting Narrative Narrative: Patient states he had a seizure yesterday. Not witnessed. Resulted in a tongue injury/laceration has been bleeding until just before he came here. He states it is clotted and feels good now except for being sore. He states he uses CBD, gabapentin, and diazepam for seizures. He has never seen a neurologist nor has he ever had an EEG. He says typically in the winter, such as now, he tends to get abdominal discomfort off and on which is not present right now, and more seizures. He states he feels fine now except for the tongue injury. [facility] Medical History Anxiety HTN (hypertension) Rheumatoid aortitis Seizure Home Medications amlodipine 5 mg PO DAILY 04/16/16 [History Last Taken 01/10/20] oxycodone 10 mg PO Q4H PRN PRN 11/21/16 [History Last Taken 01/10/20] diazepam 10 mg PO TID 10/24/18 [History Last Taken 01/10/20] testosterone cypionate 200 mg IM .COMPLEX 10/24/18 [History Last Taken 01/10/20] amitriptyline 75 mg PO QHS 01/11/20 [History Last Taken 01/10/20] gabapentin 400 mg PO 4X/DAY 01/11/20 [History Last Taken 01/10/20] lisinopril 10 mg PO 01/11/20 [History Last Taken 01/10/20] pantoprazole 40 mg PO DAILY 01/11/20 [History Last Taken 01/10/20] ibuprofen 400 mg PO Q6H PRN PRN tab 01/14/20 [Rx Last Taken Unknown] spironolactone 25 mg PO DAILY #30 tab 01/14/20 [Rx Last Taken Unknown] Allergy/AdvReac Type Severity Reaction Status Date / Time Penicillins Allergy Rash Verified 04/15/21 10:20 Social History Smoking Status: Current some day smoker tobacco type: e-cigarettes ROS ROS ED Constitutional Constitutional ED: Denies chills or fever(s) Eyes Eyes: Denies change in vision or diplopia ENT ENT ED: Reports other Details: Tongue pain/laceration/contusion see HPI ; Denies rhinorrhea or sore throat Cardiovascular Cardiovascular: Denies chest pain or palpitations Respiratory/Chest Respiratory/Chest: Denies cough or dyspnea Gastrointestinal Gastrointestinal: Reports abdominal pain; Denies diarrhea, nausea or vomiting Genitourinary Genitourinary ED: Denies dysuria or hematuria Musculoskeletal Musculoskeletal: Denies back pain or neck pain Integumentary Denies abscess or rash Neurologic Neurologic: Denies headache(s), paresthesias or weakness Psychiatric Psychiatric: Denies anxiety or suicidal thoughts EXAM Physical Exam Const Vital Signs: 04/15/21 10:21 Temperature 96.8 F L Temperature Source Temporal Pulse Rate 110 H Respiratory Rate 18 Blood Pressure 153/101 H Blood Pressure Mean 118 Pulse Ox 99 Oxygen Delivery Method Room Air Positive well nourished and well developed General Appearance ED: well developed and NAD HEENT Reports moist mucous membranes HEENT Narrative: Patient has a large tongue contusion on the left side, there is no active bleeding, there is evidence of a laceration but it is held together and not gaping open. normocephalic and atraumatic Eyes PERRL and EOMs intact bilaterally Neck full ROM and supple Resp normal respiratory effort and clear to auscultation bilaterally Cardio regular rate, regular rhythm and no murmurs GI non-tender and non-distended Auscultation: normoactive bowel sounds Palpation: soft Back/Spine no CVA tenderness General Back: other FROM Extremity normal to inspection General Extremety ED: Negative for edema, pulses abnormal or tenderness General Extremity: Negative for edema or pulses abnormal Neuro oriented x3, CN's II-XII intact bilaterally and no sensory deficits noted Sensorium / Orientation: awake and alert Motor Exam: strength 5/5 throughout Skin no rashes or lesions noted and no wounds MDM MDM MDM Narrative Medical decision making narrative: At this time patient is doing well. He is talking normally. He states the laceration seemed deep, but it is difficult to tell since the pieces are where they should be and there is no active bleeding or opening. I would not repair anything, now that it is stop the bleeding I would leave it alone and let it heal and he is amenable to that. We discussed avoiding heat/hot beverages today, using ice as needed, we discussed reasons to return and I referred him to neurology. Discharge Plan Triage Chief Complaint: Wound ED Provider: Pito Sandy Dx/Rx/DC Orders Clinical Impression: Seizure, Simple laceration of tongue Instructions: ED Seizure, Recurrent (Adult) Prescriptions: No Action amlodipine 5 MG tablet 5 mg PO DAILY RF: 0 oxycodone 5 MG tablet 10 mg PO Q4H PRN PRN (Reason: Pain) RF: 0 diazepam 10 MG tablet 10 mg PO TID RF: 0 testosterone cypionate 200 MG/ML oil 200 mg IM .COMPLEX RF: 0 amitriptyline 75 MG tablet 75 mg PO QHS RF: 0 gabapentin 400 MG capsule 400 mg PO 4X/DAY RF: 0 pantoprazole 40 MG tablet 40 mg PO DAILY RF: 0 lisinopril 10 MG tablet 10 mg PO RF: 0 spironolactone 25 MG tablet 25 mg PO DAILY Qty: 30 RF: 0 ibuprofen 400 MG tablet 400 mg PO Q6H PRN PRN (Reason: PAIN 1-01/19) RF: 0 Primary Care Provider: Gil Hu Referrals: Hernan Sawant MD [STAFF PHYSICIAN] - (call for appt) Gil Hu [Primary Care Provider] - Disposition Disposition: Home, Self Care
== END 2021-04-15 11:34 | disposition home or self-care (01) ==
LOC: ED 11:18
PROVIDERS: Emergency Provider Emergency Medicine; PCP Family Medicine; Visit Provider Emergency Medicine
DX: S01.512A Laceration without foreign body of oral cavity, initial encounter (principal); M06.9 Rheumatoid arthritis, unspecified; G40.909 Epilepsy, unspecified, not intractable, without status epilepticus; X58.XXXA Exposure to other specified factors, initial encounter; Y93.89 Activity, other specified; I10 Essential (primary) hypertension; F41.9 Anxiety disorder, unspecified; F17.290 Nicotine dependence, other tobacco product, uncomplicated; Z79.899 Other long term (current) drug therapy
CPT/HCPCS: 99282

== ENCOUNTER 2021-04-17 16:27 | Outpatient (CLI) | payer OTHER, SELFPAY ==
[2021-04-17 18:07] LABS: Absolute Lymphocyte Count 1.31 X10^3/uL (0.83-4.51); Absolute Neutrophil Count 7.8 X10^3/uL (2.0-7.7); Basophil# 0.08 X10^3/uL; Basophil% 0.8 % (0-1); Eosinophil# 0.14 X10^3/uL; Eosinophils% 1.4 % (0-5); Hematocrit 29.9 % (40-54); Hemoglobin 10.5 g/dL (13.0-16.5); Lymphocyte # 1.31 X10^3/ul (0.83-4.51); Lymphocyte % 13.3 % (19-41); Mean Corp Hgb Conc 35.1 g/dL (32-36); Mean Corpuscular Hgb 29.2 pg (27.0-32.0); Mean Corpuscular Volume 83.3 fL (80-94); Mean Platelet Vol. 12.2 fl (6.2-12.0); Monocyte# 0.49 X10^3/uL; NRBC Flagged by Analyzer 0 % (0-5); Neutrophil % 79.2 % (47-70); Platelet Count 170 K/mm3 (150-450); RBC Distribution Width CV 13.4 % (11.6-14.6); RBC Distribution Width SD 41.5 fl (35.1-43.9); Red Blood Count 3.59 M/mm3 (4.6-6.2); White Blood Count 9.9 K/mm3 (4.4-11.0)
[2021-04-17 18:30] LABS: Vitamin D,25 Hydroxy 9.2 ng/mL
[2021-04-17 18:37] LABS: ALB/GLOB Ratio 1.1 RATIO (0.9-2.4); AST(SGOT) 13 U/L (15-37); Alanine Aminotransfer ALT/SGPT 15 U/L (16-61); Albumin, Serum 3.9 g/dL (3.2-5.0); Alkaline Phosphatase 74 U/L (45-117); Anion Gap 9 (5-15); BUN 5 mg/dL (7-18); BUN/Creat Ratio 6.3 RATIO (10-20); CPK Total, Creatine Kinase 448 U/L (39-308); Calcium,Total 8.5 mg/dL (8.5-10.1); Chloride 95 mmol/L (98-107); Creatinine, Serum 0.79 mg/dL (0.70-1.30); EST Glomerular Filtration Rate 119 mL/min (>60); Est Glom Filt Rate - Afr Amer 144 mL/min (>60); Ferritin 162 ng/mL (26-388); Globulin 3.5 g/dL (2.2-4.2); Glucose 101 mg/dL (74-106); Potassium 3.1 mmol/L (3.5-5.1); Protein, Total 7.4 g/dL (6.4-8.2); Rheumatoid Factor < 10.0 IU/mL (<15); Sodium Level 133 mmol/L (136-145)
[2021-04-17 19:20] LABS: Erythrocyte Sedimentation Rate 20 mm/hr (0-20)
[2021-04-19 12:12] LABS: ANTINUCLEAR ANTIBODIES DIRECT Negative (Negative)
[2021-04-21 17:07] LABS: Endomysial Antibody IgA Negative (Negative); Immunoglobulin A 71 mg/dL (90-386)
[2021-04-21 18:40] LABS: CCP IgG Antibodies 5 units (0-19); t-Transglutaminase IgA <2 U/mL (0-3)
== END 2021-04-17 23:59 | disposition short-term general hospital (02) ==
LOC: MTLAB 16:29
PROVIDERS: PCP Family Medicine; Referring Provider Family Medicine; Visit Provider Family Medicine
DX: M06.9 Rheumatoid arthritis, unspecified (principal); I10 Essential (primary) hypertension; R53.83 Other fatigue; E55.9 Vitamin D deficiency, unspecified; R10.9 Unspecified abdominal pain
CPT/HCPCS: 36415; 80053; 82306; 82533; 82550; 82728; 82784; 83516; 84443; 85025; 85652; 86038; 86140; 86200; 86225; 86235; 86255; 86431

== ENCOUNTER 2021-05-02 14:15 | Outpatient (CLI) | payer OTHER, SELFPAY ==
[2021-05-02 14:27] VITALS: BP 153/79; PULSE 89; RESP 16; TEMP 36.6; O2SAT 96; BMI 26.3
[2021-05-02] MEDS: 0.9% Saline Lock 10 ML Syringe IV (14:32)
[2021-05-02] MEDS: Acetaminophen 325 MG Tablet 650 MG PO (14:39)
[2021-05-02 15:36] VITALS: BP 132/76; PULSE 76; RESP 16; TEMP 36.8; O2SAT 100
[2021-05-02 16:27] VITALS: BP 122/75; PULSE 78; RESP 16; TEMP 36.8; O2SAT 100
== END 2021-05-02 23:59 | disposition home or self-care (01) ==
LOC: MS3OUT 14:15 → MS3 14:16
PROVIDERS: PCP Family Medicine; Referring Provider Nurse Practitioner Adult Health; Visit Provider Nurse Practitioner Adult Health
DX: U07.1 COVID-19 (principal)
CPT/HCPCS: J7050; M0247; A4216; Q0247

== ENCOUNTER → 2022-01-20 | Outpatient (CLI) | payer OTHER, SELFPAY ==
[2022-01-20 18:20] LABS: Absolute Lymphocyte Count 2.61 X10^3/uL (0.83-4.51); Basophil# 0.09 X10^3/uL; Basophil% 1.3 % (0-1); Eosinophil# 0.48 X10^3/uL; Eosinophils% 7.1 % (0-5); Hematocrit 43.4 % (40-54); Hemoglobin 14.9 g/dL (13.0-16.5); Lymphocyte # 2.61 X10^3/ul (0.83-4.51); Lymphocyte % 38.8 % (19-41); Mean Corp Hgb Conc 34.3 g/dL (32-36); Mean Corpuscular Hgb 28.9 pg (27.0-32.0); Mean Corpuscular Volume 84.1 fL (80-94); Mean Platelet Vol. 12.7 fl (6.2-12.0); Monocyte# 0.51 X10^3/uL; Monocyte% 7.6 % (0-10); NRBC Flagged by Analyzer 0 % (0-5); Neutrophil # 3.01 X10^3/uL (2.7-7.7); Neutrophil % 44.9 % (47-70); Platelet Count 206 K/mm3 (150-450); RBC Distribution Width CV 13.9 % (11.6-14.6); RBC Distribution Width SD 42.7 fl (35.1-43.9); Red Blood Count 5.16 M/mm3 (4.6-6.2); White Blood Count 6.7 K/mm3 (4.4-11.0)
[2022-01-20 18:23] LABS: Erythrocyte Sedimentation Rate 1 mm/hr (0-20)
[2022-01-20 18:25] LABS: Vitamin B12 727 pg/mL (211-911)
[2022-01-20 19:04] LABS: ALB/GLOB Ratio 1.3 RATIO (0.9-2.4); AST(SGOT) 9 U/L (15-37); Alanine Aminotransfer ALT/SGPT 12 U/L (16-61); Albumin, Serum 4.1 g/dL (3.2-5.0); Alkaline Phosphatase 73 U/L (45-117); Anion Gap 9 (5-15); BUN 13 mg/dL (7-18); BUN/Creat Ratio 13.7 RATIO (10-20); CRP < 2.90 mg/L (0.0-3.0); Calcium,Total 8.9 mg/dL (8.5-10.1); Chloride 101 mmol/L (98-107); Creatinine, Serum 0.95 mg/dL (0.70-1.30); EST Glomerular Filtration Rate 95 mL/min (>60); Est Glom Filt Rate - Afr Amer 116 mL/min (>60); Globulin 3.1 g/dL (2.2-4.2); Glucose 96 mg/dL (74-106); Potassium 3.8 mmol/L (3.5-5.1); Protein, Total 7.2 g/dL (6.4-8.2); Sodium Level 136 mmol/L (136-145); Thyroid Stim Hormone (TSH) 3.06 uIU/mL (0.358-3.74)
== END | disposition home or self-care (01) ==
PROVIDERS: PCP Family Medicine; Visit Provider Family Medicine
DX: Z01.83 Encounter for blood typing (principal); M06.9 Rheumatoid arthritis, unspecified; I10 Essential (primary) hypertension; R53.83 Other fatigue
CPT/HCPCS: 36415; 80053; 82306; 82607; 84443; 85025; 85652; 86140; 86900; 86901

== ENCOUNTER → 2022-07-21 | Outpatient (CLI) | payer BC, SELFPAY | END | disposition home or self-care (01) | PROVIDERS: PCP Family Medicine; Visit Provider Family Medicine | DX: Z20.828 Contact with and (suspected) exposure to other viral communicable diseases (principal); J06.9 Acute upper respiratory infection, unspecified | CPT/HCPCS: 87635; U0003; U0005 ==

== ENCOUNTER → 2022-09-04 | Outpatient (CLI) | payer BC, SELFPAY | END | disposition home or self-care (01) | LOC: LABSPEC 14:41 | PROVIDERS: PCP Family Medicine; Referring Provider Family Medicine; Visit Provider Family Medicine | DX: Z20.828 Contact with and (suspected) exposure to other viral communicable diseases (principal); J06.9 Acute upper respiratory infection, unspecified | CPT/HCPCS: 87635; U0005 ==

== ENCOUNTER 2022-12-30 10:07 | Day surgery (SDC) | payer BC, SELFPAY ==
--- NOTE | 2022-12-29 10:11 | EKG12_ITS ---
Test Reason : PRE OP Blood Pressure : / mmHG Vent. Rate : 085 BPM Atrial Rate : 085 BPM P-R Int : 174 ms QRS Dur : 110 ms QT Int : 374 ms P-R-T Axes : 074 081 060 degrees QTc Int : 445 ms Normal sinus rhythm Normal ECG When compared with ECG of 11-JAN-2020 16:26, ST no longer depressed in Inferior leads ST no longer depressed in Anterior leads Nonspecific T wave abnormality, improved in Inferior leads Confirmed by ELHAM JAIN, NIKIA ([id number]), film and video editor VISHNU LARSON ([id number]) on 12/30/2022 10:02:05 AM Referred By: Max Valdovinos Confirmed By:COCO LIZARRAGA MD
[2022-12-29 11:10] LABS: Hematocrit 38.1 % (40-54); Hemoglobin 13.4 g/dL (13.0-16.5); Mean Corp Hgb Conc 35.2 g/dL (32-36); Mean Corpuscular Hgb 30.2 pg (27.0-32.0); Mean Corpuscular Volume 85.8 fL (80-94); Mean Platelet Vol. 11.5 fl (6.2-12.0); Platelet Count 206 K/mm3 (150-450); RBC Distribution Width CV 13.8 % (11.6-14.6); RBC Distribution Width SD 43.8 fl (35.1-43.9); Red Blood Count 4.44 M/mm3 (4.6-6.2); White Blood Count 5.3 K/mm3 (4.4-11.0)
[2022-12-29 11:16] LABS: Partial Thromboplast Time 29.2 Seconds (24.1-36.2)
[2022-12-29 11:38] LABS: Anion Gap 4 (5-15); BUN 10 mg/dL (7-18); BUN/Creat Ratio 12.3 RATIO (10-20); Calcium,Total 8.2 mg/dL (8.5-10.1); Chloride 98 mmol/L (98-107); Creatinine, Serum 0.81 mg/dL (0.70-1.30); EST Glomerular Filtration Rate 114 mL/min (>60); Est Glom Filt Rate - Afr Amer 138 mL/min (>60); Glucose 88 mg/dL (74-106); Potassium 3.2 mmol/L (3.5-5.1); Sodium Level 132 mmol/L (136-145)
[2022-12-30] VITALS (9 sets, daily range): BP systolic 107–142; BP diastolic 77–107; PULSE 62–71; RESP 14–20; TEMP 36.4–36.7; O2SAT 97–100; BMI 24.8
[2022-12-30] MEDS: Lactated Ringers 1,000 ML 15 ML IV (12:14)
--- NOTE | 2022-12-30 12:47 | HP.PCM_ITS ---
History and Physical Date of Admission: 12/30/22 Intake Vital Signs 05/02/2213:27 12/25/2307:25 Height 5 ft 6 in 5 ft 6 in Weight: 169 lb 4 oz BMI 27.3 BP 152/103 H Blood Pressure Location Rt brachial Position Sitting Respiration 17 Pulse 70 Pulse Source Monitor Temp 97.2 F L Temp Source Temporal Pulse Oximetry (%) 100 Oxygen Delivery Method room air Intake Visit Reasons: Umbilical Hernia Chief Complaint: umbilical hernia Is patient in pain?: Yes Allergies Penicillins Allergy (Verified 12/24/22 09:41) Rashtramadol Adverse Reaction (Severe, Verified 12/24/22 09:41) Seizures Medications amlodipine 5 mg tablet 5 mg PO DAILY bp 04/16/16 [History Confirmed 12/24/22] oxycodone 5 mg tablet 10 mg PO Q4H PRN PRN Pain 11/21/16 [History Confirmed 12/24/22] diazepam 10 mg tablet 10 mg PO TID anxiety 10/24/18 [History Confirmed 12/24/22] gabapentin 400 mg capsule 800 mg PO 4X/DAY nerve pain 01/11/20 [History Confirmed 12/24/22] pantoprazole 40 mg tablet,delayed release 40 mg PO DAILY gerd 01/11/20 [History Confirmed 12/24/22] spironolactone 25 mg tablet 25 mg PO DAILY #30 tabs 01/14/20 [Rx Confirmed 12/24/22] divalproex 500 mg tablet,extended release 24 hr 1,000 mg PO QHS 05/02/21 [History Confirmed 12/24/22] olopatadine 0.2 % eye drops 1 drp ophthalmic (eye) DAILY 08/22/21 [History Confirmed 12/24/22] triamcinolone acetonide 0.1 % topical cream 1 applic topical BID PRN 08/22/21 [History Confirmed 12/24/22] cholecalciferol (vitamin D3) 50 mcg (2,000 unit) tablet 50 mcg PO DAILY 12/24/22 [History Confirmed 12/24/22] PFSH Medical History Allergic rhinitis Anxiety Chronic fatigue Chronic pain Depression Fibromyalgia GERD (gastroesophageal reflux disease) HTN (hypertension) Hypogonadism in male Hypokalemic periodic paralysis Immunodeficiency Insomnia Night 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 He says it hurts a lot especially when he is working. He says has been on for few months. ROS General General: Yes weight change and fatigue; No appetite, colon cancer, breast cancer or weakness HEENT HEENT: No difficulty swallowing, eye injury, eye surgery, swollen glands or hoarseness Endo Endocrine: No thyroid disease, diabetes mellitus, thyroid cancer, Hair loss, heat intolerance or cold intolerance Skin Skin: Yes rash; No changing moles Musc Musculoskeletal: Yes rheumatoid arthritis; No back problems, arthritis, gout or joint pain Cardio Cardiovascular: Yes high blood pressure; No murmur, pacemaker, heart disease, atrial fibrillation, heart attack, heart stent, palpitations, shortness of breat with exertion or chest pain Psych Psychiatric: No depression, anxiety or hearing voices Resp Respiratory: Yes shortness of breath, No sleep apnea, No cough, No COPD, No asthma, No emphysema and No wheezing Gastro Gastrointestinal: Yes abdominal pain, Yes nausea or vomiting, No diarrhea, Yes constipation, Yes blood in stool, Yes acid reflux, Yes hemorrhoids, No ulcers, No gallbladder problem and No black,tarry stools Nakul Hematologic: No blood thinners, No blood disorders, No bleeding, Yes anemia and No blood clots Neuro Neurologic: No system reviewed and no additional complaints, except as documented, No as per HPI, No abnormal gait, No abnormal hearing, No abnormal movements, No abnormal speech, No behavioral changes, No burning sensations, No confusion, No convulsions, No disequilibrium, No dizziness, No localized weakness, No frequent falls, No headache(s), No lack of coordination, No loss of vision, No memory loss, No numbness, No other visual disturbances, No radicular pain, No restless legs, No sensory deficit, No syncope, No tingling, No tremor(s), No weakness and No other Exam Const General: cooperative Orientation: alert and oriented x3 HENMT Head: normal to inspection Neck Neck: normal visual inspection and full ROM Chest Chest palpation & inspection: normal inspection of the chest Resp Effort & Inspection: normal respiratory effort Auscultation: clear to auscultation bilaterally Cardio Rate: regular rate Rhythm: regular rhythm GI Inspection: non-distended Palpation: soft, hernia umbilical and nontender Skin General: no rashes or lesions noted Neuro General: patient alert and patient oriented x3 Extrem General: full ROM Psych Appearance: grossly normal Mental Status: mental status grossly normal Results POC SHWETA Covid FluAB PCR POC Shweta Covid PCR Not Detected Last Edit by Mikaela Dodd on 12/24/22 10:01 POC SHWETA FLU NOT DETECTED FLU A&B Last Edit by Mikaela Dodd on 12/24/22 10:01 Assessment and Plan Assessment and Plan (1) Umbilical hernia: Status: Acute Qualifiers: Obstruction and gangrene presence: without obstruction or gangrene Qualified Code(s): K42.9 - Umbilical hernia without obstruction or gangrene Plan: The patient has a small umbilical hernia which should likely be able to repair repaired with sutures. I discussed open repair with sutures with the patient. I discussed the procedure in detail as well as the risks. I discussed the risks including bleeding and infection and recurrence of hernia. Patient understands the risks and is willing to proceed. Max Valdovinos MD Pager: [facility] [address] [place] [address], [address] [place] [address] Office: I have examined the patient and the H&P has been reviewed. There are no clinical changes since date of exam.
[2022-12-30] MEDS: Clindamycin 900 MG/50 ML BAG 75 MG IV (13:02)
[2022-12-30] MEDS: Bupivacaine Mpf 0.5% 30 ML VIAL (13:15)
--- NOTE | 2022-12-30 14:10 | PCM.OPRPT ---
Report of Operation Date of Procedure: 12/30/22 Pre-Operative Diagnosis: Umbilical hernia, less than 3 cm Post-Operative Diagnosis: Same Surgery/Procedure Performed:: Umbilical hernia repair Type of Anesthesia: Local MAC Estimated Blood Loss (mL): 5 Description of Procedure: Patient was brought back to the operating room and general anesthesia was induced. The abdomen was prepped and draped in usual sterile fashion. A curvilinear incision was marked superior to the umbilicus and then injected with local anesthetic. Incision was made with a scalpel. The hernia sac was removed from the umbilical stalk using electrocautery and then it was reduced. The hernia was very small measuring approximately 5 mm. I placed 2 0-Nurolon sutures to close the defect. The cavity was irrigated and then the incision was closed with interrupted 3-0 Vicryl sutures. Steri-Strips and bandages were applied. Patient tolerated the procedure well was brought to PACU in stable condition. Grafts/Implants Used: No mesh used Admit VTE Documentation VTE Mechan Device Prophylaxis: SCD's
--- NOTE | 2022-12-30 14:12 | DCINST_ITS ---
Discharge Instructions Procedure Hernia Diet Discharge Diet: Light diet - advance as tolerated Activity Discharge Activity: May Not Drive (for 2-3 days or while taking narcotic pain meds.) and May Shower (with the bandage in place 1-2 days after surgery.) Lifting Restrictions: 20 pounds for 2 weeks. Additional Activity Instructions:: Climbing stairs is fine, walking is encouraged. Sitting in bed may be uncomfortable. Sitting up using your lateral muscles (sitting up sideways) is usually more comfortable. Do not drive, work heavy equipment of sign legal documents for 24 hours. Pain medications may cause nausea, you should typically eat light foods as you take your pain medications. Pain medications may also cause constipation. If you have difficulty with this, discuss with your doctor. Dressing / Incision Call your doctor if your incision/area has: Continuous Slow Oozing, Sudden Increased Bleeding, Increased Pain/ Swelling, Increased Redness and Foul Smelling Discharge Call your doctor if you observe: Fever of 101 or Higher Suture Line Care: Avoid Pulling/Pushing and Avoid Pinching/Bending Remove Dressing in: 3 days (Remove clear bandages in 2 days, remove Steri-Strips in 7 to 10 days.) Cleanse incision/area with: Soap & Water Follow Up Care Please Follow Up With: Max Valdovinos MD When: Please call to schedule 2 week follow up appointment. [phone] Test Results: Test results from this visit will be discussed in further detail at your follow- up appointment, if applicable. Discharge Plan Admission Attending Provider: Max Valdovinos Primary Care Provider: Gil Hu Instructions Additional Instructions / Restrictions: Alternate ibuprofen and Tylenol for pain Discharge Orders/Prescriptions Prescriptions: No Action olopatadine 0.2 % drops 1 drp ophthalmic (eye) DAILY triamcinolone acetonide 0.1 % cream 1 applic topical BID PRN (Reason: rash) cholecalciferol (vitamin D3) 50 mcg (2,000 unit) tablet 50 mcg PO DAILY amlodipine 5 MG tablet 5 mg PO DAILY oxycodone 5 MG tablet 10 mg PO Q4H PRN PRN (Reason: Pain) diazepam 10 MG tablet 10 mg PO BID Patient Comments: TAKE 1 TABLET BY MOUTH TWICE DAILY NEEDED gabapentin 400 MG capsule 800 mg PO 4X/DAY pantoprazole 40 MG tablet 40 mg PO QHS divalproex 500 mg tablet extended release 24 hr 1,000 mg PO QHS Patient Comments: take 2 tablets by mouth at bedtime spironolactone 25 MG tablet 25 mg PO QHS diclofenac sodium 0.1 % drops 1 drp ophthalmic (eye) Q6H Patient Comments: 1 DROP OPHTHALMICALLY INTO EACH EYE 4 TIMES PER DAY FOR 3 DAYS diclofenac sodium 75 mg tablet,delayed release (DR/EC) 75 mg PO DAILY Patient Comments: TAKE 1 TABLET BY MOUTH TWICE A DAY WITH FOOD OR MILK FOR 14 DAYS potassium chloride 10 mEq capsule, extended release 40 meq PO ONCE Qty: 4 0RF Other Ambulatory Orders: 12 Lead EKG (Routine) Timeframe: 20221229 Location: None Selected Ordered By: Dr. Rahat Juarez Referrals / Follow Up: Gil Hu DO [Primary Care Provider] - Disposition Disposition (needs filled in before D/C Order can be placed): Home, Self Care
--- NOTE | 2022-12-30 15:54 | SUR.PHASEII ---
PT VOICES THAT HE REFUSES TAKE TYLENOL AND IBUPROFEN DUE TO IT CAUSING HIM AN UPSET STOMACH/STOMACH PAIN AND WOULD LIKE A PRESCRIPTION FOR PAIN MEDICINE, THIS NURSE CALLED INTO THE OR UNABLE TO SPEAK WITH THE DR AT THIS TIME, THIS WAS RELAYED TO THE PT. PT DOES NOT WANT TO WAIT AROUND FOR THE SURGEON TO SEND A PRESCRIPTION, ILL CALL MY FAMILY DOCTOR FOR PAIN MEDS. PT STATES I WANT TO BE DISCHARGED. PT DID URINATE AND MEETS ALL D/C CRITERIA PT DISCHARGED TO HOME.
== END 2022-12-30 15:50 | disposition home or self-care (01) ==
LOC: SDC 10:14 → AC 10:20
PROVIDERS: Anesthesiology; PCP Family Medicine; Referring Provider Surgery; Visit Provider Surgery
PROC: (CPT 49591; principal; 2022-12-30 13:05)
DX: K42.9 Umbilical hernia without obstruction or gangrene (principal); I10 Essential (primary) hypertension; F17.290 Nicotine dependence, other tobacco product, uncomplicated; R10.9 Unspecified abdominal pain; K21.9 Gastro-esophageal reflux disease without esophagitis; Z79.899 Other long term (current) drug therapy; Z86.16 Personal history of COVID-19
CPT/HCPCS: 49591; 00750; 36415; 80048; 85027; 85730; 93005; J7120; J2405

== ENCOUNTER → 2023-05-04 | Outpatient (CLI) | payer BC, SELFPAY ==
[2023-05-04 16:04] LABS: Absolute Lymphocyte Count 2.55 X10^3/uL (0.83-4.51); Absolute Neutrophil Count 2.9 X10^3/uL (2.0-7.7); Basophil# 0.09 X10^3/uL; Basophil% 1.4 % (0-1); Eosinophil# 0.28 X10^3/uL; Eosinophils% 4.3 % (0-5); Hemoglobin 14.8 g/dL (13.0-16.5); Lymphocyte # 2.55 X10^3/ul (0.83-4.51); Lymphocyte % 38.9 % (19-41); Mean Corp Hgb Conc 34.4 g/dL (32-36); Mean Corpuscular Hgb 29.1 pg (27.0-32.0); Mean Corpuscular Volume 84.6 fL (80-94); Monocyte# 0.65 X10^3/uL; Monocyte% 9.9 % (0-10); NRBC Flagged by Analyzer 0 % (0-5); Neutrophil # 2.94 X10^3/uL (2.7-7.7); Neutrophil % 44.7 % (47-70); Platelet Count 268 K/mm3 (150-450); RBC Distribution Width CV 14.1 % (11.6-14.6); RBC Distribution Width SD 43.7 fl (35.1-43.9); Red Blood Count 5.08 M/mm3 (4.6-6.2); White Blood Count 6.6 K/mm3 (4.4-11.0)
[2023-05-04 16:16] LABS: D-Dimer Quantitative (DVT/PE) < 0.27 FEU/ug/m (0.27-0.49)
[2023-05-04 16:34] LABS: ALB/GLOB Ratio 1.6 RATIO (0.9-2.4); AST(SGOT) 11 U/L (15-37); Alanine Aminotransfer ALT/SGPT 11 U/L (16-61); Albumin, Serum 4.4 g/dL (3.2-5.0); Alkaline Phosphatase 75 U/L (45-117); Anion Gap 8 (5-15); BUN 10 mg/dL (7-18); CRP < 2.90 mg/L (0.0-3.0); Calcium,Total 8.9 mg/dL (8.5-10.1); Chloride 98 mmol/L (98-107); Creatinine, Serum 0.83 mg/dL (0.70-1.30); EST Glomerular Filtration Rate 111 mL/min (>60); Est Glom Filt Rate - Afr Amer 134 mL/min (>60); Globulin 2.8 g/dL (2.2-4.2); Glucose 119 mg/dL (74-106); Potassium 3.4 mmol/L (3.5-5.1); Protein, Total 7.2 g/dL (6.4-8.2); Sodium Level 132 mmol/L (136-145)
[2023-05-04 17:00] LABS: Erythrocyte Sedimentation Rate 1 mm/hr (0-20)
== END | disposition home or self-care (01) ==
LOC: BFHLAB 13:28
PROVIDERS: PCP Family Medicine; Visit Provider Family Medicine
DX: R50.9 Fever, unspecified (principal); R05.9 Cough, unspecified
CPT/HCPCS: 36415; 80053; 85025; 85379; 85652; 86140; 87631

== ENCOUNTER → 2023-06-15 | Outpatient (CLI) | payer BC, SELFPAY ==
[2023-06-15 18:12] LABS: Free T3 2.6 pg/mL (2.18-3.98); T4 Total, Thyroxin 6.8 ug/dL (4.5-12.1)
[2023-06-18 09:09] LABS: Anti-Thyroglobulin AB < 1.0 IU/mL (0.0-0.9); Thyroglobulin, Serum Qt. 39.9 ng/mL (1.4-29.2); Thyroid Peroxidase AB < 9 IU/mL (0-34); Thyroxin Bind Glob (TBG) 14 ug/mL (13-39)
== END | disposition home or self-care (01) ==
LOC: BFHLAB 15:17
PROVIDERS: PCP Nurse Practitioner Family; Visit Provider Nurse Practitioner Family
DX: R53.82 Chronic fatigue, unspecified (principal)
CPT/HCPCS: 36415; 84432; 84436; 84439; 84442; 84443; 84481; 86376; 86800

== ENCOUNTER → 2023-09-03 | Outpatient (CLI) | payer BC, SELFPAY ==
[2023-09-03 15:23] LABS: Absolute Neutrophil Count 3.1 X10^3/uL (2.0-7.7); Basophil# 0.12 X10^3/uL; Basophil% 1.9 % (0-1); Eosinophil# 0.35 X10^3/uL; Eosinophils% 5.5 % (0-5); Hematocrit 41.1 % (40-54); Hemoglobin 13.5 g/dL (13.0-16.5); Lymphocyte % 34.8 % (19-41); Mean Corp Hgb Conc 32.8 g/dL (32-36); Mean Corpuscular Volume 85.1 fL (80-94); Mean Platelet Vol. 11.4 fl (6.2-12.0); Monocyte# 0.53 X10^3/uL; Monocyte% 8.4 % (0-10); NRBC Flagged by Analyzer 0 % (0-5); Neutrophil % 48.9 % (47-70); Platelet Count 267 K/mm3 (150-450); RBC Distribution Width CV 14.6 % (11.6-14.6); RBC Distribution Width SD 45.2 fl (35.1-43.9); Red Blood Count 4.83 M/mm3 (4.6-6.2); White Blood Count 6.3 K/mm3 (4.4-11.0)
[2023-09-03 17:17] LABS: HIV - WCH Non-Reactive (Nonreactive); Vitamin D,25 Hydroxy 38.4 ng/mL
[2023-09-08 13:08] LABS: Absolute CD4 Helper 1082 /uL (359-1519); Basophils (Absolute) 0.1 x10E3/uL (0.0-0.2); CD4/CD8 Ratio 2.41 (0.92-3.72); Eosinophils 5 % (Not Estab.); Eosinophils (Absolute) 0.3 x10E3/uL (0.0-0.4); Hematocrit 41.7 % (37.5-51.0); Hemoglobin 13.7 g/dL (13.0-17.7); Immature Granulocytes 0 % (Not Estab.); Immature Granulocytes Absolute 0 x10E3/uL (0.0-0.1); Immunoglobulin A 69 mg/dL (90-386); Immunoglobulin E 7 IU/mL (6-495); Immunoglobulin G 563 mg/dL (603-1613); Immunoglobulin M 33 mg/dL (20-172); Lymphs 35 % (Not Estab.); Lymphs (Absolute) 2.2 x10E3/uL (0.7-3.1); MCH 28.4 pg (26.6-33.0); MCHC 32.9 g/dL (31.5-35.7); MCV 87 fL (79-97); Monocytes 8 % (Not Estab.); Monocytes (Absolute) 0.5 x10E3/uL (0.1-0.9); Neutrophils 50 % (Not Estab.); Neutrophils (Absolute) 3.2 x10E3/uL (1.4-7.0); Percent % CD4 Pos. Lymph. 49.2 % (30.8-58.5); Percent % CD8 Pos. Lymph. 20.4 % (12.0-35.5); Platelets 266 x10E3/uL (150-450); RBC Count 4.82 x10E6/uL (4.14-5.80); RDW 15.4 % (11.6-15.4); WBC Count 6.3 x10E3/uL (3.4-10.8)
== END | disposition home or self-care (01) ==
LOC: BFHLAB 11:53
PROVIDERS: PCP Family Medicine; Visit Provider Family Medicine
DX: D84.9 Immunodeficiency, unspecified (principal); E55.9 Vitamin D deficiency, unspecified
CPT/HCPCS: 36415; 82306; 82784; 82785; 85025; 86360; 86703

== ENCOUNTER 2023-10-07 14:26 | Outpatient (CLI) | payer BC, SELFPAY ==
[2023-10-07 18:56] LABS: ALB/GLOB Ratio 1.1 RATIO (0.9-2.4); AST(SGOT) 16 U/L (15-37); Alanine Aminotransfer ALT/SGPT 24 U/L (16-61); Albumin, Serum 3.9 g/dL (3.2-5.0); Alkaline Phosphatase 93 U/L (45-117); Anion Gap 11 (5-15); BUN 8 mg/dL (7-18); BUN/Creat Ratio 9.2 RATIO (10-20); Calcium,Total 8.8 mg/dL (8.5-10.1); Chloride 94 mmol/L (98-107); Creatinine, Serum 0.87 mg/dL (0.70-1.30); EST Glomerular Filtration Rate 105 mL/min (>60); Est Glom Filt Rate - Afr Amer 128 mL/min (>60); Globulin 3.5 g/dL (2.2-4.2); Glucose 112 mg/dL (74-106); Potassium 3.9 mmol/L (3.5-5.1); Prealbumin 41.6 mg/dL (20.0-40.0); Protein, Total 7.4 g/dL (6.4-8.2); Sodium Level 130 mmol/L (136-145); Thyroid Stim Hormone (TSH) 5.94 uIU/mL (0.358-3.74)
[2023-10-07 19:07] LABS: Vitamin B12 730 pg/mL (211-911)
[2023-10-13 09:10] LABS: Dopamine, Pl 69 pg/mL (0-48); Epinephrine, Pl 109 pg/mL (0-62); Norepinephrine, Pl 447 pg/mL (0-874)
== END 2023-10-07 23:59 | disposition home or self-care (01) ==
PROVIDERS: PCP Family Medicine; Referring Provider Family Medicine; Visit Provider Family Medicine
DX: Z00.00 Encounter for general adult medical examination without abnormal findings (principal)
CPT/HCPCS: 36415; 80053; 82384; 82607; 84134; 84443

== ENCOUNTER → 2023-10-11 | Outpatient (CLI) | payer BC, SELFPAY ==
--- NOTE | 2023-10-11 16:04 | CT_ITS ---
STUDY: CT BRAIN WITH AND WITHOUT CONTRAST REASON FOR EXAM: Male, 38 years old. Abdominal pain, night sweats and weight loss RADIATION DOSAGE (If Supplied By Facility): CTDIvol = ( 44.99 ) mGy, DLP = ( 2489.55 ) mGycm TECHNIQUE: Transaxial CT imaging of the brain was performed pre and post contrast administration. The examination was performed with intravenous administration of Oral and amp; IV Gastrografin and amp; 100mL Isovue-370. Individualized dose optimization techniques were used for this CT. COMPARISON: None. FINDINGS: Normal soft tissue structures. Normal calvarium. Normal size ventricles and extra-axial spaces for the patient''s age. Normal white matter tracts of the cerebral hemispheres. Normal basal ganglia and thalami. Normal brainstem. Normal cerebellum. There is no intracranial hemorrhage. There are no findings of an acute ischemic infarction. Mucosal thickening in the right maxillary sinus.. CT/Brain/Head W/WO Contrast IMPRESSION: Normal unenhanced and enhanced CT scan of the brain. Right maxillary sinusitis likely chronic Electronically Signed: Isiah Pan MD at 18:55 EDT ,
--- NOTE | 2023-10-11 16:04 | CT_ITS ---
EXAM: CT ABDOMEN AND PELVIS WITH INTRAVENOUS CONTRAST CLINICAL INDICATION: Abdominal pain, night sweats and weight loss TECHNIQUE: Helically acquired images were obtained of the abdomen and pelvis with intravenous contrast. This CT exam was performed using one or more of the following dose reduction techniques: automated exposure control, adjustment of the mA and/or kV according to patient size, and/or use of iterative reconstruction technique. CONTRAST: Oral and amp; IV Gastrografin and amp; 100mL Isovue-370 COMPARISON: No relevant prior studies available. FINDINGS: LOWER THORAX: Normal. Lung bases are clear. No cardiomegaly. No pericardial effusion. ABDOMEN: LIVER: Normal. Homogeneous. No focal mass. GALLBLADDER AND BILE DUCTS: Normal. No intra- or extrahepatic biliary ductal dilation. No pericholecystic fluid. PANCREAS: Normal. No focal cystic or solid mass. SPLEEN: Normal. Normal size without focal cystic or solid mass. ADRENALS: Normal. No nodules. KIDNEYS AND URETERS: Normal. Normal renal size and position. No hydronephrosis. STOMACH AND BOWEL: Normal. No bowel distention. No focal inflammatory change. PELVIS: APPENDIX: Appendix is visualized and normal in appearance. Multilevel Schmorl nodes involve the lower thoracic vertebral bodies and L1. BLADDER: Normal. REPRODUCTIVE: Unremarkable as visualized. No mass. ABDOMEN and PELVIS: INTRAPERITONEAL SPACE: Normal. No ascites or other fluid collection. No free air. BONES/JOINTS: Bilateral L5 spondylolysis without spondylolisthesis. SOFT TISSUES: Normal. No discrete abdominal or pelvic wall hernia. VASCULATURE: Normal. Abdominal aorta is non-dilated. LYMPH NODES: Normal. No enlarged lymph nodes. CT/Abdomen/Pelvis WITH Contrast IMPRESSION: No acute abdominal or pelvic abnormality. Electronically Signed: Paul Lainez MD at 10:26 EDT ,
== END | disposition home or self-care (01) ==
PROVIDERS: PCP Family Medicine; Referring Provider Family Medicine; Visit Provider Family Medicine
DX: R68.89 Other general symptoms and signs (principal); R56.9 Unspecified convulsions; R51.9 Headache, unspecified; R10.9 Unspecified abdominal pain; R61 Generalized hyperhidrosis
CPT/HCPCS: 70470; 74177; Q9967

== ENCOUNTER 2023-11-30 07:03 | Day surgery (SDC) | payer BC, SELFPAY ==
[2023-11-30] VITALS (10 sets, daily range): BP systolic 100–129; BP diastolic 66–84; PULSE 56–72; RESP 12–18; TEMP 36.3–36.4; O2SAT 96–99; BMI 26.6
--- NOTE | 2023-11-30 | GASB_PTH ---
PATIENT: RAH BROWNING LOC: EN U#:[id number] AGE/SX: 38/M ROOM: RE11/30/[address]: Dr. Max Valdovinos MD : 1985 BED: DIS: 11/30/2023 SPEC #: [id number] RECD: 11/30/23 13:11 STATUS: KINA MICHELL #: [id number] SHLOMO: 11/30/23 00:[address]: Max Valdovinos DEPT: SURGICAL PATHOLOGY RECD BY: Peter Huerta ENTERED: 11/30/23 13:12 SP TYPE: Gastric Bx OTHR DR: Dr. Gil Hu DO Tissues: A - Gastric mucous membrane B - Gastric mucous membrane Procedures: Surgery Specimen Level IV HEADER OPERATION: EGD PRE-OP DIAGNOSIS: Epigastric pain TISSUE SUBMITTED: A- Antrum biopsy, B- Gastric biopsy MICROSCOPIC DIAGNOSIS A. Gastric antrum, biopsy: Chronic gastritis. See comment. B. Gastric mucosa, biopsy: Mild chronic inflammation. / 12/01/2023 COMMENT A. The results of immunohistochemistry for Helicobacter pylori will be reported separately ([id number]). MICROSCOPIC DESCRIPTION Slides are reviewed. GROSS DESCRIPTION A. Received in fixative is one container labeled with the patient's name and designated Antrum biopsy. The specimen consists of one irregular fragment of light cardoza soft tissue that measures 0.3 x 0.3 x 0.1 cm. The specimen is totally submitted in one cassette. B. Received in fixative is one container labeled with the patient's name and designated Gastric body biopsy. The specimen consists of one irregular fragment of light cardoza soft tissue that measures 0.2 x 0.2 x 0.1 cm. The specimen is totally submitted in one cassette. 11/30/2023 TC:3 CPT:[id number]
[2023-11-30] MEDS: Lactated Ringers 1,000 ML 15 ML IV (07:29)
--- NOTE | 2023-11-30 07:42 | PCM.PRE.AN2 ---
ASA Classification* ASA Classification ASA Classification: 2 Assessment & Plan Anesthesia* Anesthesia Assessment Anesthesia Assessment: Discussed sedation and/or anesthesia options, risks, benefits, and alternatives with patient/parents/legal guardian/POA. Questions invited. The patient/parents/legal guardian/POA seems to understand and agrees to proceed with anesthesia plan. Reviewed the physical assessment, medical history, allergy history and patient home medications list prior to surgery/procedure/anesthetic and documented any changes. Performed airway and anesthesia risk assessments. Anesthesia Type Anesthesia Type: MAC (see written pre anesthesia record for full assessment) Anesthesia Focused Assessment* Temperature: 97.3 F Pulse Rate: 72 Blood Pressure: 129/84 Respiratory Rate: 18 Pulse Ox: 99 Airway Assessment Mouth opens: >3 cm Mallampati Score: II Focused Labs Anesthesia Preop lab: CBC WBC 6.3 x10E3/uL (3.4-10.8) 09/03/23 11:54 RBC 4.82 x10E6/uL (4.14-5.80) 09/03/23 11:54 Hgb 13.7 g/dL (13.0-17.7) 09/03/23 11:54 Hct 41.7 % (37.5-51.0) 09/03/23 11:54 Plt Count 266 x10E3/uL (150-450) 09/03/23 11:54 CHEMISTRY Potassium 3.9 mmol/L (3.5-5.1) 10/07/23 14:27 Sodium 130 mmol/L (136-145) L 10/07/23 14:27 Magnesium 2.1 mg/dL (1.6-2.6) 01/14/20 05:41 Phosphorus 6.7 mg/dL (2.5-4.9) H 01/14/20 05:41 BUN 8 mg/dL (7-18) 10/07/23 14:27 Creatinine 0.87 mg/dL (0.70-1.30) 10/07/23 14:27 Glucose 112 mg/dL (74-106) H 10/07/23 14:27 TSH 5.94 uIU/mL (0.358-3.74) H 10/07/23 14:27 COAG PT 11.2 SECONDS (11.7-14.9) L 01/11/20 15:18 Pre-Assessment Diagnosis/Proposed Procedure Planned Operative Procedure(s): egd Anesthesia History Anesthesia History - family day care provider: Anesthesia History - family day care provider Hx Hospitalization No 11/26/23 09:47 Any Problems With Anesthesia No 11/26/23 09:47 Cholinesterase deficiency No 11/26/23 09:47 You/Your Family Experience No 11/26/23 09:47 fever (hyperthermia) with Relationship Recent Exposure to Contagious No 11/30/23 07:31 Disease Does patient have nerve No 11/26/23 09:47 stimulator Patient instructed to have device shut off --Does patient have Pacemaker No 11/30/23 07:31 or ICD? When Was Last Pacemaker Check QUESTION #4 FULL TEXT: You/Your Family Experience fever (hyperthermia) with Anesthesia Last Oral Intake Last Oral intake: Last Oral Intake NPO since 00:00 11/30/23 07:31 Meds taken in AM with sips of Yes 11/30/23 07:31 water? Meds patient instructed to take am of surgery PONV PONV - family day care provider: PONV - family day care provider Female No 11/26/23 09:47 HX of Motion Sickness No 11/26/23 09:47 HX of N/V After Surgery No 11/26/23 09:47 Non-Smoker Yes 11/26/23 09:47 Duration of Surgery greater No 11/26/23 09:47 than 60 minutes Number of Risk Factors 1 11/26/23 09:47 PONV Score Low Risk 11/26/23 09:47 Height & Weight Height & Weight: Anesthesia: Height & Weight Height 5 ft 7 in 11/30/23 07:31 Weight: 77.201 kg 11/30/23 07:31 Body Mass Index (BMI) 26.6 11/30/23 07:31 Respiratory Assessment Respiratory Assessment - family day care provider: Respiratory Tract Infection Hx - family day care provider Hx Respiratory Tract Infection No 11/26/23 09:47 STOP Sleep Apnea STOP Sleep Apnea - family day care provider: STOP Sleep Apnea - family day care provider Hx Hypertension Yes: CONTROLLED WITH MED 11/26/23 09:47 Hx Sleep Apnea No 11/26/23 09:47 CPAP BIPAP Do you snore loudly (louder No 11/26/23 09:47 than talking or can be heard Do you often feel tired/ No 11/26/23 09:47 fatigued/ sleepy during daytime? Has anyone observed you stop No 11/26/23 09:47 breathing during sleep? STOP Results Negative 11/26/23 09:47 QUESTION #5 FULL TEXT : Do you snore loudly (louder than talking or can be heard through closed doors)? Tobacco Use History Tobacco Use History - family day care provider: Tobacco Use History - family day care provider Tobacco Use Smoking Status Current some day smoker 11/26/23 09:47 Hx Tobacco Use Yes 11/26/23 09:47 Years Smoking Packs Smoked per Day 1 11/26/23 09:47 Smoking Cessation Date was within the last 15 years Hx Smoking Cessation Date Hx Smoking Cessation No 11/26/23 09:47 Counseling Hematologic Medial History Hematologic Hx - family day care provider: Hematologic Medical Hx - credit support specialist Hx of Blood Transfusion No 11/26/23 09:47 Hx of Transfusion in last 3 No 11/26/23 09:47 Months Date of Last Transfusion (if within last 3 months) Ever experience any problems No 11/26/23 09:47 with transfusion(s)? Specify any problems Hx of Preganancy in last 3 N/A 11/26/23 09:47 Months Nurse Filling Out Transfusion NBUCHER 11/26/23 09:47 & Questions: Date: 11/26/23 11/26/23 09:47 Time: 09:48 11/26/23 09:47 Patient unable to answer at this time (ie. confused, unrespo /Reproduction History /Reproductive History - family day care provider: /Reproductive Hx- family day care provider Hx Now Gestational Age (in weeks): EDC: Hx Hx Para Hx Section SAB Active Medications Active Medications: Current Medications Generic Name Dose Route Start Last Admin Trade Name Freq PRN Reason Stop Dose Admin Lactated Ringer's 1,000 mls @ 15 mls/hr 11/30/23 07:15 11/30/23 07:29 IV 15 mls/hr .Q48H KRISTIN Administration PFSH Medical History Epilepsy Smoker Night terrors Depression Tobacco user Insomnia Allergic rhinitis GERD (gastroesophageal reflux disease) Immunodeficiency Hypogonadism in male Schmorl's nodes of thoracolumbar region Hypokalemic periodic paralysis Chronic fatigue Fibromyalgia Chronic pain Anxiety HTN (hypertension) Rheumatoid aortitis Seizure Home Medications ?Medication ?Instructions ?Recorded ?Last Taken ?Type diazepam 10 mg tablet 10 mg PO BID anxiety 10/24/18 11/30/23 History gabapentin 400 mg capsule 800 mg PO 4X/DAY nerve pain 01/11/20 11/30/23 History divalproex 500 mg tablet,extended 1,000 mg PO QHS 05/02/21 11/29/23 History release 24 hr triamcinolone acetonide 0.1 % 1 applic topical BID PRN rash 08/22/21 Unknown History topical cream cholecalciferol (vitamin D3) 50 50 mcg PO DAILY 12/24/22 11/29/23 History mcg (2,000 unit) tablet diclofenac sodium 75 mg 75 mg PO DAILY 12/28/22 Unknown History tablet,delayed release spironolactone 25 mg tablet 25 mg PO QHS 12/28/22 11/29/23 History amlodipine 10 mg tablet 10 mg PO DAILY 11/03/23 11/30/23 History omeprazole 40 mg capsule,delayed 40 mg PO DAILY #60 caps 11/03/23 11/30/23 Rx release Allergy/AdvReac Type Severity Reaction Status Date / Time Penicillins Allergy Rash Verified 11/30/23 07:36 tramadol AdvReac Severe Seizures Verified 11/30/23 07:36 NSAIDS (Non-Steroidal AdvReac Upset Verified 11/30/23 07:36 Anti-Inflamma Stomach Family History Mother Heart murmur Father Arthritis Grandmother Mental disorder Surgical History History of umbilical hernia repair History of wisdom tooth extraction History of tonsillectomy History of axillary surgery Social History Smoking Status: Current some day smoker tobacco type: cigarettes and e-cigarettes alcohol intake: never substance use type: does not use caffeine: No Review of Systems (Anesthesia) ROS Narrative System reviewed and no additional complaints, except as documented.
--- NOTE | 2023-11-30 08:11 | HP.PCM_ITS ---
History and Physical Date of Admission: 11/30/23 Intake Vital Signs 12/30/2310:58 11/03/2407:45 Height 5 ft 7 in 5 ft 7 in Weight: 177 lb BMI 27.7 BP 135/85 H Blood Pressure Location Rt brachial Position Sitting Respiration 17 Pulse 83 Pulse Source Monitor Pulse Oximetry (%) 100 Oxygen Delivery Method room air Intake Visit Reasons: Esophagogastroduodenoscopy Chief Complaint: egd Is patient in pain?: No Allergies Penicillins Allergy (Verified 11/03/23 08:46) Rashtramadol Adverse Reaction (Severe, Verified 11/03/23 08:46) SeizuresNSAIDS (Non-Steroidal Anti-Inflamma Adverse Reaction (Verified 11/03/23 08:46) Upset Stomach Medications ?Medication ?Instructions ?Recorded ?Confirmed ?Type oxycodone 5 mg tablet 10 mg PO Q4H PRN PRN Pain 11/21/16 11/03/23 History diazepam 10 mg tablet 10 mg PO BID anxiety 10/24/18 11/03/23 History gabapentin 400 mg capsule 800 mg PO 4X/DAY nerve pain 01/11/20 11/03/23 History divalproex 500 mg tablet,extended 1,000 mg PO QHS 05/02/21 11/03/23 History release 24 hr triamcinolone acetonide 0.1 % 1 applic topical BID PRN rash 08/22/21 11/03/23 History topical cream cholecalciferol (vitamin D3) 50 50 mcg PO DAILY 12/24/22 11/03/23 History mcg (2,000 unit) tablet diclofenac sodium 75 mg 75 mg PO DAILY 12/28/22 11/03/23 History tablet,delayed release spironolactone 25 mg tablet 25 mg PO QHS 12/28/22 11/03/23 History amlodipine 10 mg tablet 10 mg PO DAILY 11/03/23 11/03/23 History omeprazole 40 mg capsule,delayed 40 mg PO DAILY #60 caps 11/03/23 11/03/23 Rx release PFSH Medical History (Updated 11/03/23 @ 10:[address] Max Valdovinos MD) Epilepsy Smoker Night terrors Depression Tobacco user Insomnia Allergic rhinitis GERD (gastroesophageal reflux disease) Immunodeficiency Hypogonadism in male Schmorl's nodes of thoracolumbar region Hypokalemic periodic paralysis Chronic fatigue Fibromyalgia Chronic pain Anxiety HTN (hypertension) Rheumatoid aortitis Seizure Surgical History History of umbilical hernia repair History of wisdom tooth extraction History of tonsillectomy History of axillary surgery Family History Mother Heart murmurFather ArthritisGrandmother Mental disorder Social History Smoking Status: Current some day smoker tobacco type: e-cigarettes alcohol intake: never substance use type: does not use caffeine: No HPI HPI HPI: Patient is a 38-year-old male here to discuss epigastric pain. He reports it hurts every time he eats. He has not been eating and he has been losing weight. He says the pain happens a matter what he eats. He has been on Protonix for a long time. He was sent here for EGD to evaluate. ROS General General: Yes weight change and fatigue; No appetite, colon cancer, breast cancer or weakness HEENT HEENT: No difficulty swallowing, eye injury, eye surgery, swollen glands or hoarseness Endo Endocrine: No thyroid disease, diabetes mellitus, thyroid cancer, Hair loss, heat intolerance or cold intolerance Skin Skin: Yes rash; No changing moles Musc Musculoskeletal: Yes rheumatoid arthritis; No back problems, arthritis, gout or joint pain Cardio Cardiovascular: Yes high blood pressure; No murmur, pacemaker, heart disease, atrial fibrillation, heart attack, heart stent, palpitations, shortness of breat with exertion or chest pain Psych Psychiatric: No depression, anxiety or hearing voices Resp Respiratory: No shortness of breath, No sleep apnea, No cough, No COPD, No asthma, No emphysema and No wheezing Gastro Gastrointestinal: Yes abdominal pain, Yes nausea or vomiting, No diarrhea, Yes constipation, No blood in stool, Yes acid reflux, No hemorrhoids, No ulcers, No gallbladder problem and No black,tarry stools Nakul Hematologic: No blood thinners, No blood disorders, No bleeding, Yes anemia and No blood clots Neuro Neurologic: No system reviewed and no additional complaints, except as documented, No as per HPI, No abnormal gait, No abnormal hearing, No abnormal movements, No abnormal speech, No behavioral changes, No burning sensations, No confusion, No convulsions, No disequilibrium, No dizziness, No localized weakness, No frequent falls, No headache(s), No lack of coordination, No loss of vision, No memory loss, Yes numbness, No other visual disturbances, No radicular pain, No restless legs, No sensory deficit, No syncope, Yes tingling, No tremor(s), No weakness and No other Exam Const General: cooperative Orientation: alert and oriented x3 HENMT Head: normal to inspection Neck Neck: normal visual inspection and full ROM Chest Chest palpation & inspection: normal inspection of the chest Resp Effort & Inspection: normal respiratory effort Auscultation: clear to auscultation bilaterally Cardio Rate: regular rate Rhythm: regular rhythm GI Inspection: non-distended Palpation: soft and nontender Skin General: no rashes or lesions noted Neuro General: patient alert and patient oriented x3 Extrem General: full ROM Psych Appearance: grossly normal Mental Status: mental status grossly normal Assessment and Plan Assessment and Plan (1) Epigastric pain: Status: Acute Plan: Patient is a 38-year-old male here for epigastric pain. He reports that every time he eats he has epigastric pain immediately and he has stopped eating and has been losing weight. I will change him from his Protonix to omeprazole to try that and I will perform an EGD. I explained endoscopy in detail to the patient. I explained the risks including but not limited to stroke or heart attack with anesthesia, perforation of the GI tract, bleeding, infection. I explained that any of these could necessitate further emergency surgery. The patient understands and all questions were answered sufficiently. The patient wishes to proceed with procedure. Max Valdovinos MD Pager: [facility] [address] [place] [address] [address] [place] [address] Office: I have examined the patient and the H&P has been reviewed. There are no clinical changes since date of exam.
--- NOTE | 2023-11-30 08:30 | IMM_PTH ---
PATIENT: RAH BROWNING LOC: EN U#:[id number] AGE/SX: 38/M ROOM: RE11/30/[address]: Dr. Max Valdovinos MD : 1985 BED: DIS: 11/30/2023 SPEC #: [id number] RECD: 11/30/23 13:14 STATUS: KINA RENatalie #: [id number] SHLOMO: 11/30/23 08:[address]: Max Valdovinos DEPT: IMMUNOHISTOCHEMISTRY RECD BY: Angel Nolasco ENTERED: 11/30/23 13:14 SP TYPE: IMMUNO OTHR DR: Dr. Gil Hu DO Tissues: A - Gastric mucous membrane Procedures: H Pylori (initial) PHYSICIAN & INSTITUTION [place] [id number] SPECIMEN INFORMATION: Tissue Source: A- Antrum biopsy Clinical Info: Epigastric pain Specimen Number: [id number] CPT code: 50134 METHODOLOGY: Deparaffinized sections of prefer/formalin-fixed tissue or PAP/DQ stained slides are incubated with monoclonal/polyclonal antibodies/oligonucleotide probes. Localization is made via biotin free immunoperoxidase method. Appropriate controls are performed and reacted as expected. Results on target cell population are indicated in the following table: RESULTS: ANTIBODY / CLONE RESULT Block A H Pylori (polyclonal) negative These tests were developed and their performance characteristics determined by [facility]. They may not have been cleared or approved by the U.S. Food and Drug Administration. The FDA has determined that such clearance or approval is not necessary. The above immunohistochemical/dualISH markers are ordered and reviewed by the Pathologist. INTERPRETATION: A. Antrum, biopsy: Negative for Helicobacter pylori organisms. FAUSTO/ 12/01/2023
--- NOTE | 2023-11-30 08:35 | OP.EGD_ITS ---
Patient Name: Natasha Henning Procedure Date: 11/30/2023 8:15 AM Date of : 1985 Age: 38 Procedure: Upper GI endoscopy Indications: Epigastric abdominal pain Providers: Max Valdovinos MD Medicines: Propofol per Anesthesia Patient Profile: This is a 38 year old male. Refer to note in patient chart for documentation of history and physical. Complications: No immediate complications. Estimated blood loss: Minimal. Procedure: Pre-Anesthesia Assessment: - Prior to the procedure, a History and Physical was performed, and patient medications and allergies were reviewed. The patient's tolerance of previous anesthesia was also reviewed. The risks and benefits of the procedure and the sedation options and risks were discussed with the patient. All questions were answered, and informed consent was obtained. Prior Anticoagulants: The patient has taken no anticoagulant or antiplatelet agents. After reviewing the risks and benefits, the patient was deemed in satisfactory condition to undergo the procedure. After obtaining informed consent, the endoscope was passed under direct vision. Throughout the procedure, the patient's blood pressure, pulse, and oxygen saturations were monitored continuously. The Endoscope was introduced through the mouth, and advanced to the third part of duodenum. The upper GI endoscopy was accomplished without difficulty. The patient tolerated the procedure well. Scope In: 8:27:00 AM Scope Out: 8:30:32 AM Total Procedure Duration Time 0 hours 3 minutes 32 seconds Findings: Localized moderate inflammation characterized by erosions and erythema was found on the greater curvature of the stomach. The esophagus was normal. The examined duodenum was normal. Impression: - Gastritis. - Normal esophagus. - Normal examined duodenum. - No specimens collected. Recommendation: - Discharge patient to home. - Resume previous diet. - Continue present medications. - Use sucralfate tablets 1 gram PO QID for 1 month. Procedure Code(s): --- Professional --- 12873, Esophagogastroduodenoscopy, flexible, transoral; diagnostic, including collection of specimen(s) by brushing or washing, when performed (separate procedure) Diagnosis Code(s): --- Professional --- K29.70, Gastritis, unspecified, without bleeding R10.13, Epigastric pain CPT copyright 2021 [employer] [place] [employer]. All rights reserved. The codes documented in this report are preliminary and upon bmet review may be revised to meet current compliance requirements. Max Valdovinos MD 11/30/2023 8:35:28 AM This report has been signed electronically. Number of Addenda: 0 Note Initiated On: 11/30/2023 8:15 AM
--- NOTE | 2023-11-30 08:35 | OP.CCLET_ITS ---
11/30/2023 Gil Hu [address] [place] [address] Re : Upper GI endoscopy procedure for Natasha Henning Dear Dr. Hu This procedure was performed on Thursday, November 30, 2023. My impressions and recommendations are as follows: Impressions : - Gastritis. - Normal esophagus. - Normal examined duodenum. - No specimens collected. Recommendations : - Discharge patient to home. - Resume previous diet. - Continue present medications. - Use sucralfate tablets 1 gram PO QID for 1 month. My findings are described in the full procedure note, which is enclosed. If I can be of further assistance, please feel free to contact me at Doctor phone number(s): , Work: . Sincerely, Max Valdovinos MD 11/30/2023 8:35:28 AM This report has been signed electronically.
--- NOTE | 2023-11-30 08:37 | PCM.POST.ANE ---
Anesthesia: Postop Eval I Current Vital Signs Temperature: 97.6 F Pulse Rate: 64 Blood Pressure: 105/69 Respiratory Rate: 12 Pulse Ox: 98 Oxygen Delivery Method: Room Air Assessment Airway patent: Yes Spontaneous unlabored respirations: Yes Mental status: Asleep nausea: No Vomiting: No Anesthesia Complication: No Fluid Hydration Crystalloid volume administer (ml): 400 Total IV fluid infused: 400 Progress Note Anesthesia document: Postop Eval 1 completed: Yes
--- NOTE | 2023-11-30 08:45 | PCM.POSTANE2 ---
Anesthesia Postop Eval I Sum Postop Eval Completion status Anesthesia document: Postop Eval 1 completed: Yes Anesthesia Postop Eval I Summary Anesthesia Postop Eval I Summary: Anesthesia Postop Eval I: Assessment Summary Airway patent Yes 11/30/23 08:38 [email or web address] Spontaneous unlabored Yes 11/30/23 08:38 [email or web address] respirations Mental status Asleep 11/30/23 08:38 [email or web address] nausea No 11/30/23 08:38 [email or web address] Vomiting No 11/30/23 08:38 [email or web address] Anesthesia Postop Eval I: Fluid Summary Crystalloid volume administer 400 11/30/23 08:38 [email or web address] (ml) Colloids volume administered ( ml) Blood Product volume administered (ml) Total IV fluid infused 400 11/30/23 08:38 [email or web address] Anesthesia Postop Eval I: Summary Notes Anesthesia Complication No 11/30/23 08:38 [email or web address] Anesthesia Complication Comment: Post-operative progress note Anesthesia: Postop Eval II Evaluation Mental status: Awake Pain Level: 0 nausea: No Vomiting: No
== END 2023-11-30 09:40 | disposition home or self-care (01) ==
LOC: EN 07:03 → AC 07:04
PROVIDERS: PCP Family Medicine; Referring Provider Family Medicine; Visit Provider Surgery
PROC: 0DJ08ZZ Inspection of Upper Intestinal Tract, Via Natural or Artificial Opening Endoscopic (ICD-10-PCS; CPT 43235; principal; 2023-11-30 08:25)
DX: K29.50 Unspecified chronic gastritis without bleeding (principal); I10 Essential (primary) hypertension; F17.210 Nicotine dependence, cigarettes, uncomplicated; F17.290 Nicotine dependence, other tobacco product, uncomplicated; Z79.899 Other long term (current) drug therapy; Z86.16 Personal history of COVID-19
CPT/HCPCS: 43235; 88305; 88342; J7120; J2405

== ENCOUNTER → 2024-02-28 | Outpatient (CLI) | payer BC, SELFPAY ==
[2024-02-28 15:28] LABS: Absolute Lymphocyte Count 2.75 X10^3/uL (0.83-4.51); Absolute Neutrophil Count 2.7 X10^3/uL (2.0-7.7); Basophil# 0.09 X10^3/uL; Basophil% 1.4 % (0-1); Eosinophil# 0.37 X10^3/uL; Eosinophils% 5.6 % (0-5); Hematocrit 39.1 % (40-54); Hemoglobin 13.4 g/dL (13.0-16.5); Lymphocyte # 2.75 X10^3/ul (0.83-4.51); Lymphocyte % 41.8 % (19-41); Mean Corp Hgb Conc 34.3 g/dL (32-36); Mean Corpuscular Hgb 27.9 pg (27.0-32.0); Mean Corpuscular Volume 81.5 fL (80-94); Mean Platelet Vol. 11.8 fl (6.2-12.0); Monocyte% 9.1 % (0-10); NRBC Flagged by Analyzer 0 % (0-5); Neutrophil # 2.74 X10^3/uL (2.7-7.7); Neutrophil % 41.6 % (47-70); Platelet Count 234 K/mm3 (150-450); RBC Distribution Width CV 14.4 % (11.6-14.6); RBC Distribution Width SD 42.3 fl (35.1-43.9); White Blood Count 6.6 K/mm3 (4.4-11.0)
== END | disposition home or self-care (01) ==
LOC: BFHLAB 13:40
PROVIDERS: PCP Family Medicine; Referring Provider Family Medicine; Visit Provider Family Medicine
DX: D84.9 Immunodeficiency, unspecified (principal); R53.82 Chronic fatigue, unspecified; R79.89 Other specified abnormal findings of blood chemistry
CPT/HCPCS: 36415; 84443; 85025

== ENCOUNTER → 2024-04-06 | Outpatient (CLI) | payer BC, SELFPAY ==
[2024-04-06 18:10] LABS: T4 Free Direct 0.68 ng/dL (0.76-1.46); Thyroid Stim Hormone (TSH) 0.797 uIU/mL (0.358-3.740)
== END | disposition home or self-care (01) ==
LOC: BFHLAB 16:02
PROVIDERS: PCP Family Medicine; Referring Provider Family Medicine; Visit Provider Family Medicine
DX: E03.9 Hypothyroidism, unspecified (principal)
CPT/HCPCS: 36415; 84439; 84443

== ENCOUNTER → 2024-05-05 | Outpatient (CLI) | payer BC, SELFPAY ==
--- NOTE | 2024-05-05 17:10 | CT_ITS ---
INDICATION: CHRONIC MAXILLARY SINUSITUS EXAMINATION: CT SINUSES - CT Sinuses W/O Contrast Injection TECHNIQUE: Helically acquired images were obtained of the paranasal sinuses. The protocol utilizes one or more of the following dose reduction techniques: automated exposure control, adjustment of mA and/or kV according to patient size,and/or use of iterative reconstruction technique. RADIATION DOSAGE (If Supplied By Facility): CTDIvol = ( 33.06 ) mGy, DLP = ( 813.19 ) mGycm COMPARISON: FINDINGS: FRONTAL SINUSES AND RECESSES: Clear. ETHMOID AIR CELLS: Clear. MAXILLARY SINUSES: Slight mucosal thickening on the right. No acute air-fluid levels. OSTIOMEATAL COMPLEXES: Slight mucosal thickening in the right ostiomeatal complex. SPHENOID SINUSES: Clear. SPHENOETHMOIDAL RECESSES: Clear. ANCILLARY FINDINGS: NASAL TURBINATES: Unremarkable. NASAL SEPTUM: Midline. ORBITS: Unremarkable. VISUALIZED DENTITION: No periodontal osseous erosion. ANTERIOR CRANIAL FOSSA: Unremarkable. CT/Sinus/Facial Bone IMPRESSION: Slight mucosal thickening in the right maxillary sinus and the right ostiomeatal complex. No acute air-fluid levels. Electronically Signed: Rachid Moore DO at 16:55 EST Reading Location ID and State: [facility] / [place] Tel [phone], Service support ,
== END | disposition home or self-care (01) ==
PROVIDERS: PCP Family Medicine; Referring Provider Family Medicine; Visit Provider Family Medicine
DX: J32.0 Chronic maxillary sinusitis (principal)
CPT/HCPCS: 70486

== ENCOUNTER → 2024-08-23 | Outpatient (CLI) | payer MEDICAID, SELFPAY ==
[2024-08-23 18:45] LABS: ALB/GLOB Ratio 2.3 RATIO (0.9-2.4); AST(SGOT) 20 U/L (<=37); Alanine Aminotransfer ALT/SGPT 11 U/L (<=46); Albumin, Serum 4.4 g/dL (3.5-5.0); Alkaline Phosphatase 109 U/L (40-129); Anion Gap 12 (5-15); BUN 15 mg/dL (4-19); BUN/Creat Ratio 18.1 RATIO (10-20); CRP < 3.00 mg/L (0.0-3.0); Calcium,Total 8.4 mg/dL (7.6-11.0); Carbon Dioxide 24.7 mmol/L (21.0-32.0); Chloride 98 mmol/L (98-108); Creatinine, Serum 0.81 mg/dL (0.70-1.20); EST Glomerular Filtration Rate 116 (>60); Glucose 111 mg/dL (70-99); Potassium 3.8 mmol/L (3.3-5.1); Protein, Total 6.4 g/dL (5.9-8.4); Rheumatoid Factor < 10.0 IU/mL (<15); Sodium Level 134 mmol/L (133-145); Total Bilirubin < 0.15 mg/dL (0.00-1.30)
[2024-08-23 18:59] LABS: Erythrocyte Sedimentation Rate < 1 mm/hr (0-20)
[2024-08-23 22:10] LABS: Amphetamine Urine NEGATIVE (<1000 ng/mL); Barbiturate Urine NEGATIVE (< 200 ng/mL); Benzodiazepine Urine PRESUMPTIVE POSITIVE (< 200 ng/mL); Buprenorphine Urine NEGATIVE (< 200 ng/mL); Cocaine Urine NEGATIVE (< 300 ng/mL); Fentanyl, Urine NEGATIVE; Methadone Urine NEGATIVE (< 300 ng/mL); Opiates Urine NEGATIVE (< 300 ng/mL); Oxycodone, Urine NEGATIVE (< 100 ng/mL); PCP Urine NEGATIVE (< 25 ng/mL); THC Urine NEGATIVE (< 50 ng/mL)
[2024-08-25 12:08] LABS: CCP IgG Antibodies 7 units (0-19)
== END | disposition home or self-care (01) ==
PROVIDERS: PCP Family Medicine; Referring Provider Family Medicine; Visit Provider Family Medicine
DX: M06.9 Rheumatoid arthritis, unspecified (principal); G72.3 Periodic paralysis; I10 Essential (primary) hypertension; E03.9 Hypothyroidism, unspecified; Z79.899 Other long term (current) drug therapy
CPT/HCPCS: 36415; 80053; 80307; 84439; 84443; 85652; 86140; 86200; 86431

== ENCOUNTER → 2024-10-20 | Outpatient (CLI) | payer MEDICAID, SELFPAY | END | disposition home or self-care (01) | PROVIDERS: PCP Family Medicine; Referring Provider Family Medicine; Visit Provider Family Medicine | DX: E03.9 Hypothyroidism, unspecified (principal) | CPT/HCPCS: 36415; 84439; 84443 ==

== ENCOUNTER → 2024-10-27 | Outpatient (CLI) | payer MEDICAID, SELFPAY ==
[2024-10-27 18:35] LABS: Anion Gap 16 (5-15); BUN 10 mg/dL (4-19); BUN/Creat Ratio 13.4 RATIO (10-20); Calcium,Total 9.4 mg/dL (7.6-11.0); Carbon Dioxide 20.3 mmol/L (21.0-32.0); Chloride 97 mmol/L (98-108); Glucose 116 mg/dL (70-99); Potassium 4.3 mmol/L (3.3-5.1)
== END | disposition home or self-care (01) ==
LOC: LAB.FUTURE 16:59
PROVIDERS: PCP Family Medicine; Visit Provider Family Medicine
DX: G72.3 Periodic paralysis (principal)
CPT/HCPCS: 36415; 80048

== ENCOUNTER → 2024-11-17 | Outpatient (CLI) | payer MEDICAID, SELFPAY | END | disposition home or self-care (01) | LOC: LAB 11:56 | PROVIDERS: PCP Family Medicine; Referring Provider Family Medicine; Visit Provider Family Medicine | DX: E03.9 Hypothyroidism, unspecified (principal); L50.9 Urticaria, unspecified | CPT/HCPCS: 36415; 84439; 84443; 86160; 86376; 86800 ==

== ENCOUNTER → 2024-11-29 | Outpatient (CLI) | payer MEDICAID, SELFPAY ==
--- NOTE | 2024-11-29 18:10 | US_ITS ---
PROCEDURE: THYROID 11/29/2024 REASON FOR EXAM: ENLARGEMENT, HYPOTHYROID TECHNIQUE: THYROID COMPARISON: None FINDINGS: Right thyroid lobe size: 3.8 cm x 1.5 cm 1.6 cm Left thyroid lobe size: 4 cm x 1.1 cm 1.3 cm Isthmus: 0.2 cm Background parenchymal echotexture is homogeneous. Nodules: . Lobe: Right, Location: Superior pole, Size: 0.3 cm x 0.3 cm x 0.2 cm, Stability: N/A Composition: Solid or almost completely solid (+2) Echogenicity: Hypoechoic (+2) Margin: Smooth (+0) Shape: Wider than tall (+0) Echogenic Foci: None (+0) TI-RADS: 4 . Lobe: Left, Location: Mid pole, Size: 0.4 cm x 0.4 cm 0.3 cm, Stability: N/A Composition: Solid or almost completely solid (+2) Echogenicity: Hypoechoic (+2) Margin: Smooth (+0) Shape: Wider than tall (+0) Echogenic Foci: None (+0) TI-RADS: 4 US/Thyroid IMPRESSION: Subcentimeter hypoechoic nodules as described most likely representing colloid cysts. Annual follow-up recommended. RECOMMENDATION: Based on most suspicious nodule. Nodule size = largest diameter Only evaluate nodule if =>5 mm. Growth > 20% in 2 dimensions = worsening. Follow up to 4 nodules. Recommend biopsy for no more than 2 nodules. Reading Location: [facility]
== END | disposition home or self-care (01) ==
PROVIDERS: PCP Family Medicine; Referring Provider Family Medicine; Visit Provider Family Medicine
DX: E04.9 Nontoxic goiter, unspecified (principal); E03.9 Hypothyroidism, unspecified
CPT/HCPCS: 76536

== ENCOUNTER → 2025-01-23 | Outpatient (CLI) | payer MEDICAID, SELFPAY ==
[2025-01-23 15:29] LABS: Hematocrit 35.6 % (40-54); Hemoglobin 12.2 g/dL (13.0-16.5); Immature Granulocytes Count 0.030 X10^3/uL (0.0-0.0); Mean Corp Hgb Conc 34.3 g/dL (32-36); Mean Corpuscular Volume 76.2 fL (80-94); Mean Platelet Vol. 12.3 fl (6.2-12.0); NRBC Flagged by Analyzer 0 % (0-5); Platelet Count 149 K/mm3 (150-450); RBC Distribution Width CV 18.7 % (11.6-14.6); RBC Distribution Width SD 51.4 fl (35.1-43.9); Red Blood Count 4.67 M/mm3 (4.6-6.2); White Blood Count 7.0 K/mm3 (4.4-11.0)
[2025-01-23 16:16] LABS: CORTISOL PM 8.49 ug/dL (2.68-10.50); Ferritin 13 ng/mL (37-417); Vitamin B12 807 pg/mL (180-914); Vitamin D,25 Hydroxy 29.5 ng/mL (30-100)
[2025-01-23 16:30] LABS: AST(SGOT) 19 U/L (<=37); Alanine Aminotransfer ALT/SGPT 15 U/L (<=46); Albumin, Serum 4.7 g/dL (3.5-5.0); Alkaline Phosphatase 65 U/L (40-129); Anion Gap 11 (5-15); BUN 11 mg/dL (4-19); BUN/Creat Ratio 14.6 RATIO (10-20); CRP < 3.00 mg/L (0.0-3.0); Calcium,Total 9.0 mg/dL (7.6-11.0); Carbon Dioxide 25.6 mmol/L (21.0-32.0); Chloride 95 mmol/L (98-108); Globulin 2.2 g/dL (2.2-4.2); Glucose 109 mg/dL (70-99); Iron 17 ug/dL (65-175); Potassium 4.0 mmol/L (3.3-5.1)
== END | disposition home or self-care (01) ==
LOC: MTLAB 13:32
PROVIDERS: PCP Family Medicine; Referring Provider Family Medicine; Visit Provider Family Medicine
DX: D64.9 Anemia, unspecified (principal); M06.9 Rheumatoid arthritis, unspecified; R53.83 Other fatigue; E03.9 Hypothyroidism, unspecified
CPT/HCPCS: 36415; 80053; 82306; 82533; 82607; 82728; 83540; 84439; 84443; 85025; 85652; 86140